=== PATIENT | male | born 1980 | race Caucasian/White ===

== ENCOUNTER → 2024-12-20 15:35 | Outpatient (BNVA) | payer BC, SELFPAY | PROVIDERS: Visit Provider Orthopaedic Surgery | DX: M54.50 Low back pain, unspecified (principal) | CPT/HCPCS: 72110 ==

== ENCOUNTER 2025-01-15 07:53 | Outpatient (CLI) | payer BC, MEDICAID, SELFPAY ==
--- NOTE | 2025-01-15 08:00 | MR_ITS ---
WS: [id number] MRI LUMBAR SPINE NONCONTRAST HISTORY: lumbar pain COMPARISON: None available. TECHNIQUE: Sagittal and axial multisequence imaging is submitted. S1 vertebral body is lumbarized. Multiple Schmorl's nodes within the mid to lower thoracic spine. Slight straightening of the normal lumbar lordosis. L2 retrolisthesis by 2 mm. Disc spaces are moderately narrowed. Schmorl's nodes at several levels. No acute fracture. Conus terminates normally at L1-2 disc level. L1-L2: Mild annular disc bulging with a proximal RIGHT foraminal disc osteophyte. Annular fissure associated with the disc. Ligamentum flavum and facet arthritis. Mild central, bilateral subarticular recess and RIGHT foraminal narrowing. Slightly greater contact on the traversing RIGHT L2 nerve root. L2-L3: Diffuse annular disc bulge with a tiny central disc protrusion, ligamentum flavum and facet arthritis. Small amount of fluid in the LEFT facet joint. Mild central, subarticular recess and foraminal stenosis. Mild disc encroachment upon the subarticular recesses. L3-L4: Mild annular disc bulging with ligamentum flavum and facet arthritis. Mild foraminal stenosis. L4-L5: Mild annular disc bulging with moderate ligamentum flavum and facet arthritis. Disc contacts the traversing L5 nerve roots. Disc osteophyte encroaching into the foramina. Mild central and subarticular recess stenosis. Moderate bilateral foraminal stenosis. L5-S1: Diffuse annular disc bulge with a small central disc protrusion contacting the S1 nerve roots. Moderate ligamentum flavum and facet arthritis. Disc osteophyte causing at least moderate foraminal stenosis. S1-S2: Small rudimentary disc. Mild foraminal stenosis. Paravertebral soft tissues negative. MR/MR lumbar spine wo con* [id number] IMPRESSION: 1. Multilevel facet joint arthropathy and stenoses. 2. L1-2: Proximal RIGHT foraminal disc osteophyte with contact on the traversi ng RIGHT L2 nerve root. Mild central, bilateral subarticular recess and RIGHT f oraminal stenosis. 3. L4-5 and L5-S1: Moderate bilateral foraminal stenosis due to disc osteophyt e and facet arthropathy. 4. L4-5: Disc contacts the traversing L5 nerve roots. Mild central and subarti cular recess and moderate foraminal stenosis. 5. L5-S1: Small central disc protrusion contacts the S1 nerve roots. 6. L2-3: Mild central subarticular recess and foraminal stenosis. 7. Numerous Schmorl's nodes within the thoracic and lumbar spine.
== END 2025-01-15 07:54 | disposition home or self-care (01) ==
PROVIDERS: PCP Family Medicine; Visit Provider Orthopaedic Surgery
DX: M47.896 Other spondylosis, lumbar region (principal); M79.604 Pain in right leg; M79.605 Pain in left leg; M48.061 Spinal stenosis, lumbar region without neurogenic claudication; M25.78 Osteophyte, vertebrae; M48.07 Spinal stenosis, lumbosacral region; R93.7 Abnormal findings on diagnostic imaging of other parts of musculoskeletal system; M51.27 Other intervertebral disc displacement, lumbosacral region; M51.44 Schmorl's nodes, thoracic region; M51.46 Schmorl's nodes, lumbar region; M43.16 Spondylolisthesis, lumbar region; M51.369 Other intervertebral disc degeneration, lumbar region without mention of lumbar back pain or lower extremity pain; M24.28 Disorder of ligament, vertebrae; M51.379 Other intervertebral disc degeneration, lumbosacral region without mention of lumbar back pain or lower extremity pain; M47.897 Other spondylosis, lumbosacral region; M48.08 Spinal stenosis, sacral and sacrococcygeal region
CPT/HCPCS: 72148

== ENCOUNTER 2025-03-19 05:01 | Inpatient (IN) | payer BC, SELFPAY ==
[2025-03-19] VITALS (8 sets, daily range): BP systolic 104–136; BP diastolic 64–83; PULSE 68–90; RESP 16–17; TEMP 36.4–36.9; O2SAT 96–99; BMI 25.7
--- NOTE | 2025-03-19 05:25 | PC.NURSE ---
upon arriving to room from lobby for evaluation patient changed into green scrubs and belongings locked up .
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
[2025-03-19 05:38] LABS: Hematocrit 42.1 % (37-53); Hemoglobin 13.70 g/dL (11.27-16.99); Mean Corpuscular HGB Conc 32.5 g/dL (30-55); Mean Corpuscular Hemoglobin 30.6 pg (27-33); Mean Corpuscular Volume 94.2 fl (82-101); Nucleated Red Blood Cells % 0 %; Platelet Count 286 10^3/cmm (157-399); Red Blood Count 4.47 10^6/uL (3.85-5.65); White Blood Count 10.89 10^3/uL (3.29-11.43)
[2025-03-19 05:54] LABS: Alanine Aminotransferase 21 U/L (0-41); Albumin Level 4.3 g/dL (3.5-5.2); Alkaline Phosphatase 88 U/L (40-130); Anion Gap 14.4 (5-19); Aspartate Amino Transferase 19 U/L (0-40); Blood Urea Nitrogen 10 mg/dL (6-20); Calcium 9.6 mg/dL (8.5-10.5); Carbon Dioxide 26 mmol/L (22-29); Chloride 100 mmol/L (98-107); Creatinine Clr Calc Pharmacy 166.4584; Globulin 3.3 g/dL (1.3-4.6); Glucose 98 mg/dL (65-115); Osmolality Calculated 283 mOsm/kg (285-295); Potassium 3.4 mmol/L (3.5-5.1); Sodium 137 mmol/L (136-145); Total Protein 7.6 g/dL (6.6-8.7)
[2025-03-19 05:58] LABS: Acetaminophen < 5.0 ug/mL (10-30); Alcohol Level < 10 mg/dL (0-10); Salicylate < 0.3 mg/dL (3-10)
[2025-03-19 06:16] LABS: Glucose Urine UA Negative (Normal); Nitrate Urine Negative (Negative); Specific Gravity, Urine 1.014 (1.005-1.030)
[2025-03-19 06:21] LABS: Add Urine Microscopic? YES
[2025-03-19 06:23] LABS: PCP Screen Urine Negative (Negative)
--- NOTE | 2025-03-19 06:29 | PC.NURSE ---
Pt removed his nicotine patch and threw it away.
[2025-03-19] MEDS: LORazepam 1 MG/0.5 ML injection 2 MG IM ×2 (07:13→19:18)
--- NOTE | 2025-03-19 07:14 | PC.NURSE ---
pt became agitated and wanted to leave to smoke a cigarette. pt left room and went down to the doors trying to leave, JUAN Bradley and JUAN Medrano attempted to talk to pt to go back to his room and pt refused. pt then got one pump of hand cashier general in his hand, licked it, and then spit on the floor. pt repeating that he just wants to go smoke a cigarette. Dr. Mizra and security notified, Dr. Mirza gave verbal orders to give 20mg Geodon and 2mg Ativan IM. medications administered. Security and PSA at bedside, pt pacing room at this time.
--- NOTE | 2025-03-19 12:04 | PC.ADMIT ---
[email or web address] Maral Lai Admission Note:Pt was brought in by his for having hyperactive behaviors and not sleeping for several days. He was recently admitted to [facility] for alcohol withdrawl. He has a hx of bipolar. His UDS was positive for opioids and he was negative for alcohol. V/s were stable in ER. Pt was given 20mg of Geodon and 2mg of ativan in ER for behaviors. He made it to the unit in a wheelchair. He was unable to speak clearly or stay awake to answer any questions. He was able to eat a sandwhich and drink some tea. He is now sleeping with no concerns. The patient,Kareem Dunaway,44 y/o, was given written information regarding hospital policies, unit procedures and contact persons. Patient's smoking status: never smoked. Vital Signs - 8 hr 03/19/25 05:21 03/19/25 07:55 03/19/25 08:00 Temperature 98.4 F Pulse Rate 90 75 76 Respiratory Rate 17 Blood Pressure 136/82 104/65 Pulse Oximetry 99 97 96 Oxygen Delivery Method Room Air 03/19/25 08:15 03/19/25 08:42 03/19/25 09:09 Temperature Pulse Rate 74 68 77 Respiratory Rate Blood Pressure 109/64 123/72 Pulse Oximetry 96 97 97 Oxygen Delivery Method 03/19/25 11:16 03/19/25 11:25 Temperature 97.5 F L Pulse Rate 75 Respiratory Rate 16 Blood Pressure 124/83 Pulse Oximetry 99 Oxygen Delivery Method Room Air Room Air
--- NOTE | 2025-03-19 13:05 | P.NPUPN_ITS ---
Vitals/I&O/Wt Last Vital Signs Temp 97.9 F 03/20/25 01:08 Pulse 86 03/20/25 01:08 Resp 20 H 03/20/25 01:08 BP 121/80 03/20/25 01:08 Pulse Ox 100 03/20/25 01:08 O2 Del Method Room Air 03/20/25 01:08 Weight last 48 hrs Weight 90.718 kg Data NPU 03/19/25 05:27 03/19/25 05:27 A&P PDMP PDMP Reviewed: Not Reviewed Involuntary Hold Information 2 Hold Status: Legal Status: 96 Hour Hold Date/Time Hold Expires: 03/25/2025 @ 0705 Coding Level of Care Code Acute Code for Chg Fwd
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
--- NOTE | 2025-03-19 13:50 | PC.NURSE ---
96 hr rights reviewed with pt @4151 with assistance of [facility] security site supervisor Elliot Melchor and Elliot Carreon. All education reviewed with pt at this time. Pt verbalized no questions regarding hold parameters. Pt copy was left @bedside with pt. Pt declined a beverage or snack. No further needs at this time.
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
[2025-03-19] MEDS: water for injection-sterile 10 ML (19:21)
--- NOTE | 2025-03-19 20:51 | PC.NURSE ---
pt was medicated on day shift did not get vitals pt resting well. charge nurse aware
[2025-03-20 01:08] VITALS: BP 121/80; PULSE 86; RESP 20; TEMP 36.6; O2SAT 100
[2025-03-20 03:21] VITALS: BP 139/89; PULSE 93; RESP 22; O2SAT 96
[2025-03-20 06:00] VITALS: BP 161/80; PULSE 99; RESP 18; O2SAT 95
[2025-03-20] MEDS: LORazepam 1 MG/0.5 ML injection 2 MG IM ×3 (09:14→23:14)
[2025-03-20] MEDS: diphenhydrAMINE 50 mg/mL SDV 1mL IM ×3 (09:14→23:14)
[2025-03-20] MEDS: water for injection-sterile 10 ML ×2 (09:16→14:12)
--- NOTE | 2025-03-20 09:18 | PC.NURSE ---
one time order for Ativan 2 mg/Geodon 20 mg/Benadryl 50 mg Ativan 2 mg given IM & Benadryl 50 mg given IM in left deltoid per patient c/o increased anxiety/agitation. Geodon 20 mg given IM in left deltoid per pt c/o increased anxiety/agitation. patient has rapid rambling speech, demanding a cigg because it's his restorationist hitting wall in room at times, coming out with sheet over his head, putting paper in his mouth attempting to chew it. easily redirected by staff but needs much redirection. agreeable to taking injections at this time, saying yeah they really helped me yesterday security to unit to be present in room during injections. staff will cont to monitor for desired med effectiveness.
--- NOTE | 2025-03-20 09:36 | PC.NURSE ---
took off nicotine patch & gave to staff to dispose of properly
[2025-03-20 14:00] VITALS: BP 119/88; PULSE 111; RESP 16; TEMP 36.4; O2SAT 100
--- NOTE | 2025-03-20 14:12 | PC.NURSE ---
prn Ativan/Benadryl/Geodon ativan 2 mg given IM along with Benadryl 50 mg IM & Geodon 20 mg IM per pt c/o increased anxiety/agitation/aggression. upset about being here on unit, saying I don't want more meds to just make me fucking sleep. patient disruptive on unit, cursing at staff & would not take redirection from staff. anesthesiology technologist, two security guards in room along with several other NPU staff, staff asked patient to take injections ordered by physician, patient got up from his bed getting verbally aggressive with staff, attempting to walk out of his room. security and NPU RN & this nurse did manual hold to assist patient to lay down on bed for injections. Code 10 called by NPU staff at this time. injections given in left buttock by NPU JING Roblero. manual hold by staff/security was less than 1 minute for injections only, then patient was released. patient immediately jumped up from bed & was threatening towards information systems security manager, saying did you fucking twist my arm? redirected by staff to not curse/threaten staff. patient pacing hallway while talking to information systems security manager. Dr. Mcghee to unit at this time after injections given, currently in hallway speaking with patient, staff will cont to monitor for desired med effectiveness.
--- NOTE | 2025-03-20 16:25 | P.NPUPN_ITS ---
Subjective NPU 2 Subjective: Patient presented today reporting that things are going okay. However staff report he had significant difficulty with managing his impulses during the day. They say he required multiple interventions with as needed medications including injections. He continues to be absent insight into the purpose of him being here and seems to be quite confused and essentially delirious per staff reports and direct observation. He is reporting that he is ready to go home and he denied any side effects of the medication. We discussed the risks, benefits and alternatives of increasing his medication and he understood and agreed to proceed as is documented in this note but seem to expect that he was going to be without the door each time he agreed to something simple. Mental Status Exam 2 MSE Comments: This is a well-nourished well-developed white male in hospital scrubs with adequate grooming and fair eye contact with limited tattoos on both arms. No abnormal movements except for significant psychomotor agitation. He was mostly cooperative with exam in mild to moderate distress. Speech was increased rate and normal in volume, feeling slightly pressured but with significant dysarthria. Mood described as pretty good. His affect was somewhat euphoric. Thought process was linear at times but other times quite disorganized. Thought content: Patient denied suicidal or homicidal ideation. There were no delusions reported but significant magical thinking and bizarre thinking, he did not report auditory or visual hallucinations but reported strange things that could just be imagined. The patient exhibits signs of restlessness and irritability. Attention and concentration were limited and his recent and remote memory appeared unreliable but then he would go off on a tangent using very disorganized language, but none were formally tested. He is alert and oriented to person, place. Insight and judgment are impaired. Impulse control is impaired. Vitals/I&O/Wt Last Vital Signs Temp 97.6 F 03/20/25 14:00 Pulse 111 H 03/20/25 14:00 Resp 16 03/20/25 14:00 BP 119/88 03/20/25 14:00 Pulse Ox 100 03/20/25 14:00 O2 Del Method Room Air 03/20/25 14:00 O2 Flow Rate 96 03/20/25 03:21 03/20/25 14:59 Intake Total Balance Data NPU 03/19/25 05:27 03/19/25 05:27 A&P Assessment and plan (1) Bipolar disorder: (2) Manic behavior: (3) Alcohol use disorder: (4) Hx of Wernicke's encephalopathy: (5) Psychosis: (6) Cannabis use disorder: Plan This is a 44-year-old white male with a reported long history of bipolar disorder but recent history of concern for Warnicke syndrome with recent hospitalization in [facility] which ended with him being put on fluphenazine with little to no impact. Reports of allergies to Haldol and Risperdal and not doing well with lithium either. Discussed Abilify with family versus Invega but given Risperdal allergy or at least problems with Risperdal we will avoid Invega at this time. Complicating the matter is this vague alcohol use and reports of Warnicke's as well as issues related to his cannabis use and the possibility of cannabis being at the heart of his psychosis. 1. Continue current medication which is Abilify 10 mg p.o. daily. Increase Abilify to 20 mg p.o. daily and start thiamine and folate. 2. Encourage individual, group and milieu therapy. 3. Continue every 15 minute checks for safety. 4. Encourage sober living treatment after discharge at the highest level of care to which she is willing to commit. 5. Evaluate against a backdrop of a 96-hour hold. Will likely need a 21-day hold. 6. Will try to get hospital records to see where this concept of Warnicke's comes from given a very vague history of alcohol use. PDMP PDMP Reviewed: Not Reviewed Involuntary Hold Information 2 Hold Status: Legal Status: 96 Hour Hold Date/Time Hold Expires: 03/25/2025 @ 0705 Attestations NPU 2 Medical Necessity Statement*: Inpatient hospitalization is medically necessary and the clinically appropriate intervention at this time. We will monitor medications and make changes as indicated. The patient's likely length of stay is 7-10 days. Coding Level of Care Code Acute Code for [facility] Fw Diagnoses Bipolar disorder F31.9 Manic behavior F30.10 Alcohol use disorder F10.90 Hx of Wernicke's encephalopathy Z86.39 Psychosis F29 Cannabis use disorder F12.90
--- NOTE | 2025-03-20 22:39 | PC.NURSE ---
pt vs not completed per charge nurse, resp 21
[2025-03-21] MEDS: water for injection-sterile 10 ML ×3 (02:13→18:00)
[2025-03-21 06:00] VITALS: BP 125/74; PULSE 101; RESP 20; TEMP 36.3; O2SAT 99
[2025-03-21] MEDS: LORazepam 1 MG/0.5 ML injection 2 MG IM ×2 (07:50→18:00)
[2025-03-21] MEDS: diphenhydrAMINE 50 mg/mL SDV 1mL IM ×2 (07:51→18:00)
--- NOTE | 2025-03-21 09:31 | PC.NURSE ---
Pt was up at nurses station and going from room 170 to room 151. He was moving around mattresses off the beds. Had multiple layers of clothes on and pillows shoved up his shirt. He cont to reach into the nurses station grabbing things and putting things inside. He then began to walk up and down the soto slamming doors and hitting the saul. He was writing on the saul as well. I spoke with Dr. Mcghee and he stated that we need to give him an injection and place him into seclusion. I made the call to security and warehouse associate driver and they assisted to give him medications and place him in seclusion. Pt went willingly with minimal resistance but was very arguementative.
--- NOTE | 2025-03-21 09:53 | PC.NURSE ---
Dr. Mcghee gave a v/o to order pt Klonopin 1mg po BId and give one now. Dr also ordered for us to give Geodon 20mg IM now.
--- NOTE | 2025-03-21 10:44 | PC.NURSE ---
Security, warehouse delivery manager, a RADIOLOGY AIDE and myself entered the room and gave the medications ordered by Dr. Mcghee without incident. He took them willingly and did not resist to cont to stay in seclusion.
--- NOTE | 2025-03-21 11:46 | P.NPUPN_ITS ---
Subjective NPU 2 Subjective: Patient presented today reporting that he doing fine and wants to leave. He continued to be quite dysarthric and mumbling per staff reports and direct observation. He wandered aimlessly through the hallways they reported needing constant redirection to not going to peoples rooms and did not do odd things with anything he can get his hands on. He had a patient safe pen and poked it through his ear. Additionally he needed multiple as needed medications and seclusion and interventions constantly. We discussed redrawing labs to find if there is any item that sticks out to identify why he might be delirious. As he seems to be more in a delirious state than necessarily psychotic state. He denied any side effects to his medication. We discussed the risks, benefits and alternatives of increasing his Abilify to 20 mg and he appeared to understand agreed to proceed as is documented in this note. Mental Status Exam 2 MSE Comments: This is a well-nourished well-developed white male in hospital scrubs with adequate grooming and fair eye contact with limited tattoos on both arms. No abnormal movements except for significant psychomotor agitation. He was mostly cooperative with exam in mild to moderate distress. Speech was increased rate and normal in volume, feeling slightly pressured but with significant dysarthria. Mood described as pretty good. His affect was somewhat euphoric. Thought process was linear at times but other times quite disorganized. Thought content: Patient denied suicidal or homicidal ideation. There were no delusions reported but significant magical thinking and bizarre thinking, he did not report auditory or visual hallucinations but reported strange things that could just be imagined. The patient exhibits signs of restlessness and irritability. Attention and concentration were limited and his recent and remote memory appeared unreliable but then he would go off on a tangent using very disorganized language, but none were formally tested. He is alert and oriented to person, place. Insight and judgment are impaired. Impulse control is impaired. Vitals/I&O/Wt Last Vital Signs Temp 97.4 F L 03/21/25 06:00 Pulse 101 H 03/21/25 06:00 Resp 20 H 03/21/25 06:00 BP 125/74 03/21/25 06:00 Pulse Ox 99 03/21/25 06:00 O2 Del Method Room Air 03/21/25 06:00 O2 Flow Rate 96 03/20/25 03:21 03/20/25 03/21/25 03/21/25 22:59 06:59 14:59 Intake Total Balance Data NPU 03/19/25 05:27 03/19/25 05:27 A&P Assessment and plan (1) Bipolar disorder: (2) Manic behavior: (3) Alcohol use disorder: (4) Hx of Wernicke's encephalopathy: (5) Psychosis: (6) Cannabis use disorder: Plan This is a 44-year-old white male with a reported long history of bipolar disorder but recent history of concern for Warnicke syndrome with recent hospitalization in [facility] which ended with him being put on fluphenazine with little to no impact. Reports of allergies to Haldol and Risperdal and not doing well with lithium either. Discussed Abilify with family versus Invega but given Risperdal allergy or at least problems with Risperdal we will avoid Invega at this time. Complicating the matter is this vague alcohol use and reports of Warnicke's as well as issues related to his cannabis use and the possibility of cannabis being at the heart of his psychosis. 1. Continue current medication which is Abilify 10 mg p.o. daily. Increased Abilify to 20 mg p.o. daily and start thiamine and folate. 2. Encourage individual, group and milieu therapy. 3. Continue every 15 minute checks for safety. 4. Encourage sober living treatment after discharge at the highest level of care to which she is willing to commit. 5. Evaluate against a backdrop of a 96-hour hold. Will likely need a 21-day hold. 6. Will try to get hospital records to see where this concept of Warnicke's comes from given a very vague history of alcohol use. PDMP PDMP Reviewed: Not Reviewed Involuntary Hold Information 2 Hold Status: Legal Status: 96 Hour Hold Date/Time Hold Expires: 03/25/2025 @ 0705 Attestations NPU 2 Medical Necessity Statement*: Inpatient hospitalization is medically necessary and the clinically appropriate intervention at this time. We will monitor medications and make changes as indicated. The patient's likely length of stay is 7-10 days. Coding Level of Care Code Acute Code for [facility] Fwd Diagnoses Bipolar disorder F31.9 Manic behavior F30.10 Alcohol use disorder F10.90 Hx of Wernicke's encephalopathy Z86.39 Psychosis F29 Cannabis use disorder F12.90
[2025-03-21 13:30] LABS: Ammonia 16 umol/L (16-60)
[2025-03-21] MEDS: NIFEdipine ER (24 hr) 30 mg Tablet 60 MG PO (13:33)
[2025-03-21 13:41] LABS: Free T4 Free Thyroxine 1.23 ng/dL (0.82-1.77); Thyroid Stimulating Hormone 1.35 uIU/mL (0.27-4.20)
[2025-03-21 14:00] VITALS: BP 112/67; PULSE 89; RESP 18; TEMP 36.7; O2SAT 96
[2025-03-21] MEDS: HYDROcodone-acetaminophen 5-325 mg Tablet 1 TAB PO ×2 (17:20→22:04)
--- NOTE | 2025-03-21 18:08 | PC.NURSE ---
Pt has been manic all day running around. He had been in seclusion once already today and had medications. He slept for a short time around two this afternoon and as soon as he woke up he came running down the hallway. Since this time he has been talking non stop with flight of ideas and his words are mumbled and unclear most of the time. He has cont to throw things into the nurses station, go in and out of other patient rooms, and take things that do not belong to him. Pt began to escalate wanting to d/c from facility. He became more and more agitated. He began kicking the door at the nurses station exit. A code 10 was called, pt was taken to seclusion, and given injections (see MAR). Pt was verbally aggressive for the entire process, but never became physical. Dr. Mcghee and Melissa Loan Documentation Specialist have been notified.
[2025-03-21 22:00] VITALS: BP 115/72; PULSE 100; RESP 21; TEMP 36.3; O2SAT 95
[2025-03-22] MEDS: water for injection-sterile 10 ML ×3 (05:06→08:27)
[2025-03-22] MEDS: LORazepam 1 MG/0.5 ML injection 2 MG IM ×3 (05:07→18:39)
[2025-03-22] MEDS: diphenhydrAMINE 50 mg/mL SDV 1mL IM ×2 (05:08→08:26)
[2025-03-22] MEDS: NIFEdipine ER (24 hr) 30 mg Tablet 60 MG PO (07:30)
--- NOTE | 2025-03-22 07:45 | P.NPUPN_ITS ---
Subjective NPU 2 Subjective: Patient presented today reporting that he is fine. He continued to struggle with communication mumbling and being dysarthric per staff reports and direct observation. He continued to be mercurial and aimlessly wandering without clear purpose per staff reports and direct observation. He required continued rounds of as needed medication to manage his behavior. Behaviors like wandering into peoples rooms not appreciating personal space and just overall being odd and confused and confusing. He continued to take the medication as prescribed and denied any side effects of the medication. Mental Status Exam 2 MSE Comments: This is a well-nourished well-developed white male in hospital scrubs with adequate grooming and fair eye contact with limited tattoos on both arms. No abnormal movements except for significant psychomotor agitation. He was mostly cooperative with exam in mild to moderate distress. Speech was increased rate and normal in volume, feeling slightly pressured but with significant dysarthria. Mood described as pretty good. His affect was somewhat euphoric. Thought process was linear at times but other times quite disorganized. Thought content: Patient denied suicidal or homicidal ideation. There were no delusions reported but significant magical thinking and bizarre thinking, he did not report auditory or visual hallucinations but reported strange things that could just be imagined. The patient exhibits signs of restlessness and irritability. Attention and concentration were limited and his recent and remote memory appeared unreliable but then he would go off on a tangent using very disorganized language, but none were formally tested. He is alert and oriented to person, place. Insight and judgment are impaired. Impulse control is impaired. Vitals/I&O/Wt Last Vital Signs Temp 97.4 F L 03/21/25 22:00 Pulse 100 03/21/25 22:00 Resp 21 H 03/21/25 22:00 BP 115/72 03/21/25 22:00 Pulse Ox 95 03/21/25 22:00 O2 Del Method Room Air 03/21/25 22:00 O2 Flow Rate 96 03/20/25 03:21 03/21/25 03/22/25 03/22/25 22:59 06:59 14:59 Intake Total 5.775 / 5.775 Balance 5.775 / 5.775 Data NPU 03/19/25 05:27 03/19/25 05:27 A&P Assessment and plan (1) Bipolar disorder: (2) Manic behavior: (3) Alcohol use disorder: (4) Hx of Wernicke's encephalopathy: (5) Psychosis: (6) Cannabis use disorder: Plan This is a 44-year-old white male with a reported long history of bipolar disorder but recent history of concern for Warnicke syndrome with recent hospitalization in [facility] which ended with him being put on fluphenazine with little to no impact. Reports of allergies to Haldol and Risperdal and not doing well with lithium either. Discussed Abilify with family versus Invega but given Risperdal allergy or at least problems with Risperdal we will avoid Invega at this time. Complicating the matter is this vague alcohol use and reports of Warnicke's as well as issues related to his cannabis use and the possibility of cannabis being at the heart of his psychosis. 1. Continue current medication which is Abilify 10 mg p.o. daily. Increased Abilify to 20 mg p.o. daily and started thiamine and folate. 2. Encourage individual, group and milieu therapy. 3. Continue every 15 minute checks for safety. 4. Encourage sober living treatment after discharge at the highest level of care to which she is willing to commit. 5. Evaluate against a backdrop of a 96-hour hold. Will likely need a 21-day hold. 6. Will try to get hospital records to see where this concept of Warnicke's comes from given a very vague history of alcohol use. PDMP PDMP Reviewed: Not Reviewed Involuntary Hold Information 2 Hold Status: Legal Status: 96 Hour Hold Date/Time Hold Expires: 03/25/2025 @ 0705 Attestations NPU 2 Medical Necessity Statement*: Inpatient hospitalization is medically necessary and the clinically appropriate intervention at this time. We will monitor medications and make changes as indicated. The patient's likely length of stay is 7-10 days. Coding Level of Care Code Acute Code for [facility] Fwd Diagnoses Bipolar disorder F31.9 Manic behavior F30.10 Alcohol use disorder F10.90 Hx of Wernicke's encephalopathy Z86.39 Psychosis F29 Cannabis use disorder F12.90
[2025-03-22] MEDS: NADOLOL 40 MG 40 EACH PO (12:19)
[2025-03-22] MEDS: FLUPHENAZINE HCL 5 MG 5 EACH PO ×2 (12:20→13:58)
[2025-03-22 14:00] VITALS: BP 112/71; PULSE 112; RESP 18; TEMP 36.4; O2SAT 98
--- NOTE | 2025-03-22 18:11 | PC.NURSE ---
Pt. got worked up and starting kicking the NPU door so hard the frame work moved when it was kicked. Code 10 called pt. was placed in seclusion.
[2025-03-22] MEDS: water for injection-sterile 10 ML 2 ML (18:38)
--- NOTE | 2025-03-22 18:40 | PC.NURSE ---
Pt. kept cursing, yelling, hitting and kicking the saul and doors in the seclusion room, and has urinated on the door x's 2. Medication was given IM. Currently pt. is still kicking and hitting the doors.
[2025-03-22 19:05] VITALS: BP 113/70; PULSE 105; RESP 17; O2SAT 100
[2025-03-22 20:36] VITALS: BP 120/77; PULSE 110; RESP 18; O2SAT 99
[2025-03-23 06:00] VITALS: BP 134/72; PULSE 110; RESP 18; O2SAT 96
--- NOTE | 2025-03-23 07:55 | W.PM.NPUPNS ---
Subjective NPU Subjective: Patient presents today reporting that he is doing okay but is clearly struggling per staff reports. He continues to have a great need for as needed medication. He continues to have multiple seclusions or restraints daily. He continues to have very impaired speaking ability and seeming to be aimless and confused much of the time. We discussed getting a neurologist consult when neurology returns on Tuesday. Talk to his and she continued to agree that his behaviors are like this at home making it impossible for her to manage him. He denied any side effects to the medication. Mental Status Exam MSE Comments: This is a well-nourished well-developed white male in hospital scrubs with adequate grooming and fair eye contact with limited tattoos on both arms. No abnormal movements except for significant psychomotor agitation. He was mostly cooperative with exam in mild to moderate distress. Speech was increased rate and normal in volume, feeling slightly pressured but with significant dysarthria. Mood described as pretty good. His affect was somewhat euphoric. Thought process was linear at times but other times quite disorganized. Thought content: Patient denied suicidal or homicidal ideation. There were no delusions reported but significant magical thinking and bizarre thinking, he did not report auditory or visual hallucinations but reported strange things that could just be imagined. The patient exhibits signs of restlessness and irritability. Attention and concentration were limited and his recent and remote memory appeared unreliable but then he would go off on a tangent using very disorganized language, but none were formally tested. He is alert and oriented to person, place. Insight and judgment are impaired. Impulse control is impaired. Vitals/I&O/Wt Last Vital Signs Temp 97.5 F L 03/22/25 14:00 Pulse 110 H 03/23/25 06:00 Resp 18 03/23/25 06:00 BP 134/72 03/23/25 06:00 Pulse Ox 96 03/23/25 06:00 O2 Del Method Room Air 03/23/25 06:00 O2 Flow Rate 96 03/20/25 03:21 03/22/25 03/23/25 03/23/25 22:59 06:59 14:59 Intake Total 30 / Balance 30 30 Data NPU 04/02/25 15:04 03/24/25 17:50 A&P Assessment and plan 1. Bipolar disorder: 2. Manic behavior: 3. Alcohol use disorder: 4. Hx of Wernicke's encephalopathy: 5. Psychosis: 6. Cannabis use disorder: Plan: This is a 44-year-old white male with a reported long history of bipolar disorder but recent history of concern for Warnicke syndrome with recent hospitalization in [facility] which ended with him being put on fluphenazine with little to no impact. Reports of allergies to Haldol and Risperdal and not doing well with lithium either. Discussed Abilify with family versus Invega but given Risperdal allergy or at least problems with Risperdal we will avoid Invega at this time. Complicating the matter is this vague alcohol use and reports of Warnicke's as well as issues related to his cannabis use and the possibility of cannabis being at the heart of his psychosis. 1. Continue current medication which is Abilify 10 mg p.o. daily. Increased Abilify to 20 mg p.o. daily and started thiamine and folate. We started Klonopin 1 mg twice daily and were going to titrate it to effect to try to make sure he is getting some sleep and hopefully slowing down however nurse reports that he is cheeking the medication with a clear understanding of the impact of the Klonopin and he is not wanting to sleep which is something he is critically in need of. 2. Encourage individual, group and milieu therapy. 3. Continue every 15 minute checks for safety. 4. Encourage sober living treatment after discharge at the highest level of care to which she is willing to commit. 5. Evaluate against a backdrop of a 96-hour hold. Will likely need a 21-day hold. 6. Will try to get hospital records to see where this concept of Warnicke's comes from given a very vague history of alcohol use. PDMP PDMP Reviewed: Not Reviewed Involuntary Hold Information Hold Status: Legal Status: 96 Hour Hold Date/Time Hold Expires: 03/25/2025 @ 0705 Attestations NPU Medical Necessity Statement*: Inpatient hospitalization is medically necessary and the clinically appropriate intervention at this time. We will monitor medications and make changes as indicated. The patient's likely length of stay is 7-10 days. Coding Level of Care Code Acute Code for [facility] Diagnoses Bipolar disorder F31.9 Manic behavior F30.10 Alcohol use disorder F10.90 Hx of Wernicke's encephalopathy Z86.39 Psychosis F29 Cannabis use disorder F12.90
[2025-03-23] MEDS: NIFEdipine ER (24 hr) 30 mg Tablet 60 MG PO (08:23)
[2025-03-23] MEDS: FLUPHENAZINE HCL 5 MG 5 EACH PO ×3 (08:26→20:18)
[2025-03-23] MEDS: NADOLOL 40 MG 40 EACH PO (08:26)
--- NOTE | 2025-03-23 09:11 | PC.NURSE ---
Pt. put a hole in the ceiling of the hallway bathroom, and placed a sheet up in the hole draping down to a shower chair that was in the bathroom. Pt.'s linens was removed, and the chair was removed from the BR.
[2025-03-23] MEDS: LORazepam 1 MG/0.5 ML injection 2 MG IM ×2 (09:35→20:04)
[2025-03-23] MEDS: diphenhydrAMINE 50 mg/mL SDV 1mL IM (09:36)
[2025-03-23] MEDS: HYDROcodone-acetaminophen 5-325 mg Tablet 1 TAB PO ×2 (13:01→17:50)
[2025-03-23 14:00] VITALS: BP 90/51; PULSE 85; RESP 18; TEMP 36.6; O2SAT 98
--- NOTE | 2025-03-23 17:05 | PC.NURSE ---
pt. had hid a Klonopin in his pocket that was found early this am. Signee was giving pt. his 1800 dose of Klonopin and then asked to see his mouth and pt. had the Klonopin under his tongue and signee informed pt. to swallow it, pt. stated he did not want it right now he wanted to save it for later. Pt. spit out the pill and signee wasted the pill.
[2025-03-23 20:46] VITALS: BP 118/80; PULSE 87; RESP 18; O2SAT 96
[2025-03-24 04:21] LABS: Add Urine Microscopic? YES; Glucose Urine UA Negative (Normal); Nitrate Urine Negative (Negative); Specific Gravity, Urine 1.010 (1.005-1.030)
--- NOTE | 2025-03-24 04:41 | PC.NURSE ---
Patient with c/o dry throat. Pharynx is pink with post nasal drainage observed. Hands and feet bilateral with mild swelling observed. Physician notified with orders received. Patient urinated on floor this am. Patient has been ambulating in the hallway with another peer this morning. He is cooperative and somewhat redirectable. He denies pain or needsat present.
[2025-03-24 06:00] VITALS: BP 109/76; PULSE 90; RESP 18; TEMP 36.4; O2SAT 98; BMI 24.5
[2025-03-24] MEDS: HYDROcodone-acetaminophen 5-325 mg Tablet 1 TAB PO ×3 (06:30→20:18)
[2025-03-24] MEDS: NADOLOL 40 MG 40 EACH PO (08:44)
[2025-03-24] MEDS: FLUPHENAZINE HCL 5 MG 5 EACH PO ×3 (08:44→20:17)
[2025-03-24] MEDS: NIFEdipine ER (24 hr) 30 mg Tablet 60 MG PO (08:46)
[2025-03-24 09:41] LABS: Hematocrit 42.5 % (37-53); Hemoglobin 14.10 g/dL (11.27-16.99); Mean Corpuscular HGB Conc 33.2 g/dL (30-55); Mean Corpuscular Hemoglobin 30.6 pg (27-33); Mean Corpuscular Volume 92.2 fl (82-101); Nucleated Red Blood Cells % 0 %; Platelet Count 281 10^3/cmm (157-399); Red Blood Count 4.61 10^6/uL (3.85-5.65); White Blood Count 9.21 10^3/uL (3.29-11.43)
[2025-03-24 10:00] LABS: Alanine Aminotransferase 19 U/L (0-41); Albumin Level 4.6 g/dL (3.5-5.2); Alkaline Phosphatase 91 U/L (40-130); Anion Gap 19.1 (5-19); Aspartate Amino Transferase 51 U/L (0-40); Blood Urea Nitrogen 11 mg/dL (6-20); Calcium 10.3 mg/dL (8.5-10.5); Carbon Dioxide 24 mmol/L (22-29); Chloride 97 mmol/L (98-107); Creatinine Clr Calc Pharmacy 143.0276; Globulin 3.5 g/dL (1.3-4.6); Glucose 102 mg/dL (65-115); Osmolality Calculated 282 mOsm/kg (285-295); Potassium 4.1 mmol/L (3.5-5.1); Sodium 136 mmol/L (136-145); Total Protein 8.1 g/dL (6.6-8.7)
--- NOTE | 2025-03-24 10:43 | PC.NURSE ---
Pt has 1+ pitting edema on his bilateral lower extremities. There is also some redness. I spoke with pt and she states that pt had a KS last year. Staff is trying to get pt to lay with feet elevated. A med consult was put in and Dr. Mcghee has been notified. The next Dr up per ER was Dr. Ward.
[2025-03-24 14:00] VITALS: BP 123/69; PULSE 84; RESP 17; O2SAT 100
--- NOTE | 2025-03-24 17:06 | P.NPUPN_ITS ---
Subjective NPU 2 Subjective: 44-year-old male with bipolar disorder a dmitted with odd behavior. He continued to have rapid speech and continued to ramble on the unit. He had not required any seclusions or restraints today. He had not been as aggressive but continue to require redirection. The patient had asked the physician underwriter of this note whether he could go home and have a romantic dinner with his stating that she deserved a good meal at [employer]. Patient had denied any drug use. He had been seen on the unit and engaged in bizarre actions such as doing push-ups repeatedly and stating that he was working on getting into shape by doing push- ups. He had complained of having swollen feet and reported a history of having been on more than 13 medications. Mental Status Exam 2 MSE Comments: This is a well-nourished well-developed white male in hospital scrubs with adequate grooming and fair eye contact with limited tattoos on both arms. No abnormal movements except for significant psychomotor agitation. He was mostly cooperative with exam in mild to moderate distress. Speech was increased in rate and normal in volume, feeling slightly pressured but with significant dysarthria. Mood described as pretty good. His affect was expansive and excessively euphoric. Thought process was disorganized. Thought content: Patient denied suicidal or homicidal ideation. There were no delusions reported but significant magical thinking and bizarre thinking, he did not report auditory or visual hallucinations but reported strange things that could just be imagined. The patient exhibits signs of restlessness and irritability. Attention and concentration were limited and his recent and remote memory appeared impaired. He is alert and oriented to person, place. Insight and judgment are impaired. Impulse control is impaired. Vitals/I&O/Wt Last Vital Signs Temp 97.5 F L 03/24/25 06:00 Pulse 84 03/24/25 14:00 Resp 17 03/24/25 14:00 BP 123/69 03/24/25 14:00 Pulse Ox 100 03/24/25 14:00 O2 Del Method Room Air 03/24/25 06:00 O2 Flow Rate 96 03/20/25 03:21 Weight last 48 hrs Weight 86.863 kg Data NPU 03/24/25 08:57 03/24/25 08:57 A&P Assessment and plan (1) Bipolar disorder: (2) Manic behavior: (3) Alcohol use disorder: (4) Hx of Wernicke's encephalopathy: (5) Psychosis: (6) Cannabis use disorder: Plan This is a 44-year-old white male with a reported long history of bipolar disorder but recent history of concern for Warnicke syndrome with recent hospitalization in [facility] which ended with him being put on fluphenazine with little to no impact. Reports of allergies to Haldol and Risperdal and not doing well with lithium either. Discussed Abilify with family versus Invega but given Risperdal allergy or at least problems with Risperdal we will avoid Invega at this time. Complicating the matter is this vague alcohol use and reports of Warnicke's as well as issues related to his cannabis use and the possibility of cannabis being at the heart of his psychosis. 1. Continue abilify 30mg daily and continue thiamine and folate. We started Klonopin 1 mg twice daily and were going to titrate it to effect to try to make sure he is getting some sleep and hopefully slowing down however nurse reports that he is cheeking the medication with a clear understanding of the impact of the Klonopin and he is not wanting to sleep which is something he is critically in need of. 2. Encourage individual, group and milieu therapy. 3. Continue every 15 minute checks for safety. 4. Encourage sober living treatment after discharge at the highest level of care to which she is willing to commit. 5. Evaluate against a backdrop of a 96-hour hold. Will likely need a 21-day hold. 6. Will try to get hospital records to see where this concept of Warnicke's comes from given a very vague history of alcohol use. Medical consult for pitting edema noted. labs ordered BNP, CRP, CMP, Cbc with Diff, Troponin series/EKG, ammonia level. PDMP PDMP Reviewed: Not Reviewed Involuntary Hold Information 2 Hold Status: Legal Status: 96 Hour Hold Date/Time Hold Expires: 03/25/2025 @ 0705 Attestations NPU 2 Medical Necessity Statement*: Inpatient hospitalization is medically necessary and the clinically appropriate intervention at this time. We will monitor medications and make changes as indicated. The patient's likely length of stay is 7-10 days. Coding Level of Care Code Acute Code for [facility] Fwd Diagnoses Bipolar disorder F31.9 Manic behavior F30.10 Alcohol use disorder F10.90 Hx of Wernicke's encephalopathy Z86.39 Psychosis F29 Cannabis use disorder F12.90
--- NOTE | 2025-03-24 17:57 | PM.CONSULT ---
Providers/Reason For Consult Consulting Physician/Specialty*: Psychiatry Reason for Consult*: Swelling Attending Physician: Arthur Mcghee MD History of Present Illness History of Present Illness Kareem Dunaway is a 44 year old male with a past medical history of hypertension, hepatitis C status posttreatment, history of alcoholism, marijuana use, admitted to neuropsychiatric unit, hospitalist team was called due to lower extremity edema. Patient denies any chest pain, palpitation, shortness of breath, no cardiovascular history, no abdominal distention, no abdominal pain, no nausea, no vomiting, he tells me he is very active, no shortness of breath with exertion orthopnea, no paroxysmal nocturnal dyspnea, no history of liver cirrhosis, no calf pain, no calf swelling, no hemoptysis, no recent surgeries, denies a family history of CAD, mother from cancer, father currently has pancreatic cancer, denies smoking, does report marijuana use, denies any IV drug use, he has had a surgery on his neck Medications/Allergies Home Medications ?Medication ?Instructions ?Recorded ?Confirmed ?Last Taken ?Type hydrocodone 5 mg-acetaminophen 325 1 tab PO Q6H PRN Pain 12/20/24 03/19/25 Unknown History mg tablet nadolol 40 mg tablet 40 mg PO DAILY 12/20/24 03/19/25 Unknown History amlodipine 5 mg tablet 10 mg PO DAILY 03/19/25 03/19/25 Unknown History benztropine 1 mg tablet 1 mg PO BID 03/19/25 03/19/25 Unknown History fluphenazine HCl 5 mg tablet 5 mg PO TID 03/19/25 03/19/25 Unknown History Allergies Allergy/AdvReac Type Severity Reaction Status Date / Time haloperidol (From Haldol) Allergy ADR-Seizure Verified 03/19/25 13:46 risperidone (From Risperdal) Allergy ALGY-Anaphy Verified 03/21/25 12:34 laxis Current Medications Generic Name Dose Route Start Last Admin Trade Name Freq PRN Reason Stop Dose Admin Acetaminophen 650 mg 03/19/25 11:14 03/23/25 21:27 Acetaminophen 325 Mg Tablet PO 650 mg Q4H PRN Administration MILD PAIN Hydrocodone Bitart/Acetaminophen 1 tab 03/21/25 13:14 03/24/25 11:38 Hydrocodone-Acetaminophen 5-325 Mg Tablet PO 1 tab Q4H PRN Administration MODERATE PAIN Benztropine Mesylate 1 mg 03/19/25 18:00 03/24/25 17:02 Benztropine 1 Mg Tablet PO 1 mg BID CORRIE Administration Clonazepam 1 mg 03/21/25 10:00 03/24/25 17:02 Clonazepam 1 Mg Tablet PO 1 mg BID CORRIE Administration Clonazepam 1 mg 03/21/25 22:48 03/21/25 23:08 Clonazepam 1 Mg Tablet PO 1 mg ONCE PRN Administration ANXIETY Diphenhydramine HCl 50 mg 03/19/25 11:14 03/23/25 09:36 Diphenhydramine 50 Mg/Ml Sdv 1ml IM 50 mg ONCE PRN Administration Severe Extrapyramidal Symptoms Diphenhydramine HCl 50 mg 03/19/25 11:14 03/22/25 05:08 Diphenhydramine 50 Mg/Ml Sdv 1ml IM 50 mg Q4H PRN Administration Severe Aggression Folic Acid 1 mg 03/21/25 13:00 03/24/25 08:46 Folic Acid 1 Mg Tablet PO 1 mg DAILY CORRIE Administration Hydroxyzine Pamoate 50 mg 03/19/25 11:14 03/23/25 14:12 Hydroxyzine 25 Mg Capsule PO 50 mg Q6H PRN Administration ANXIETY Ibuprofen 600 mg 03/19/25 11:14 03/22/25 19:32 Ibuprofen 600 Mg Tablet PO 600 mg Q6H PRN Administration MODERATE PAIN Lorazepam 2 mg 03/23/25 19:56 03/23/25 20:04 Lorazepam 1 Mg/0.5 Ml Injection IM 2 mg Q4H PRN Administration ANXIETY Nicotine 1 patch 03/19/25 11:14 03/24/25 08:08 Nicotine 21 Mg Patch TRANSDERMA 1 patch DAILY PRN Administration NICOTINE WITHDRAWAL Nicotine Polacrilex 2 mg 03/19/25 11:14 03/24/25 17:22 Nicotine 2 Mg Gum BUCCAL 2 mg Q2H PRN Administration NICOTINE WITHDRAWAL Nicotine Polacrilex 4 mg 03/19/25 11:23 03/23/25 18:07 Nicotine 4 Mg Lozenge MUCOUS MEM 4 mg Q2H PRN Administration NICOTINE CRAVINGS Non-Formulary Medication 40 mg 03/19/25 11:15 03/24/25 08:44 Nadolol PO 40 mg DAILY CORRIE Administration Non-Formulary Medication 5 mg 03/22/25 10:00 03/24/25 15:10 Fluphenazine Hcl PO 5 mg TID CORRIE Administration Olanzapine 5 mg 03/19/25 11:14 03/23/25 18:50 Olanzapine 5 Mg Odt PO 5 mg Q4H PRN Administration Agitation/Psychosis Olanzapine 10 mg 03/20/25 22:44 03/22/25 18:40 Olanzapine 10 Mg Vial IM 10 mg Q4H PRN Administration SEVERE AGITATION Pantoprazole Sodium 40 mg 03/21/25 13:11 03/24/25 08:[address] 40 Mg Tablet PO 40 mg DAILY CORRIE Administration Thiamine Mononitrate 250 mg 03/21/25 12:58 03/24/25 08:45 Thiamine 100 Mg Tablet PO 250 mg DAILY CORRIE Administration Trazodone HCl 50 mg 03/21/25 22:05 03/23/25 01:16 Trazodone 50 Mg Tablet PO 50 mg BEDTIME PRN Administration INSOMNIA PFSH Acute PFSH: Social History Smoking and tobacco/nicotine status: never used tobacco/nicotine Vitals/I&O/Wt Last Vital Signs Temp 97.5 F L 03/24/25 06:00 Pulse 84 03/24/25 14:00 Resp 17 03/24/25 14:00 BP 123/69 03/24/25 14:00 Pulse Ox 100 03/24/25 14:00 O2 Del Method Room Air 03/24/25 06:00 O2 Flow Rate 96 03/20/25 03:21 Weight last 48 hrs Weight 86.863 kg Physical Exam Const: COMMON NORMALS: no acute distress and patient oriented x3 Resp: COMMON NORMALS: normal respiratory effort, No retractions, No use of accessory muscles and clear to auscultation bilaterally AUSCULTATION: clear to auscultation bilaterally Cardio: COMMON NORMALS: regular rate, regular rhythm, S1 normal heart sound present and S2 normal heart sound present RATE: regular rate RHYTHM: regular rhythm HEART SOUNDS: S1 normal heart sound present and S2 normal heart sound present GI: COMMON NORMALS: Normal to inspection, nondistended, normoactive bowel sounds present and non-tender Extremity: COMMON NORMALS: no calf tenderness NARRATIVE EXTREMITY EXAM: Nonpitting edema bilateral extremities Neuro: COMMON NORMALS: patient oriented x3, CN's II-XII intact bilaterally and moves all extremities Psych: COMMON NORMALS: mental status grossly normal Data 03/24/25 08:57 03/24/25 08:57 A&P Assessment and plan (1) Bilateral lower extremity edema: Plan - Likely side effect of being on both Norvasc and nifedipine - Will hold both medications - Start chlorthalidone tomorrow - Blood work ordered including BMP - Monitor blood pressure closely, monitor creatinine PDMP PDMP Reviewed: Not Reviewed Consult Attestations Medical Necessity Statement: Patient requires hospitalization, for bilateral edema Diagnoses Bilateral lower extremity edema R60.0
[2025-03-24 18:00] LABS: Hematocrit 41.2 % (37-53); Hemoglobin 13.60 g/dL (11.27-16.99); Mean Corpuscular HGB Conc 33.0 g/dL (30-55); Mean Corpuscular Hemoglobin 30.5 pg (27-33); Mean Corpuscular Volume 92.4 fl (82-101); Nucleated Red Blood Cells % 0 %; Platelet Count 260 10^3/cmm (157-399); Red Blood Count 4.46 10^6/uL (3.85-5.65); White Blood Count 8.62 10^3/uL (3.29-11.43)
[2025-03-24 18:20] LABS: Troponin(5th) Baseline 17 ng/L (0-15)
[2025-03-24 18:23] LABS: Ammonia 26 umol/L (16-60)
[2025-03-24 18:36] LABS: Alanine Aminotransferase 18 U/L (0-41); Albumin Level 4.7 g/dL (3.5-5.2); Alkaline Phosphatase 84 U/L (40-130); Anion Gap 16.1 (5-19); Aspartate Amino Transferase 45 U/L (0-40); Blood Urea Nitrogen 13 mg/dL (6-20); Calcium 10.1 mg/dL (8.5-10.5); Carbon Dioxide 25 mmol/L (22-29); Chloride 99 mmol/L (98-107); Creatinine Clr Calc Pharmacy 143.0276; Globulin 3.1 g/dL (1.3-4.6); Glucose 95 mg/dL (65-115); NT Pro B Type Natriuretic Pept 60 pg/mL (0-125); Osmolality Calculated 282 mOsm/kg (285-295); Potassium 4.1 mmol/L (3.5-5.1); Sodium 136 mmol/L (136-145); Total Protein 7.8 g/dL (6.6-8.7)
[2025-03-24 19:42] VITALS: BP 114/72; PULSE 82; RESP 20; TEMP 36.5; O2SAT 98
[2025-03-24 21:12] LABS: Troponin 5 2HR 19.05 ng/L (0-15); Troponin 5 2HR Delta 2.05 ABS# (0-10)
--- NOTE | 2025-03-24 23:35 | ECG_ITS ---
[facility] Test Date: 2025-03-24 Pat Name: Kareem Dunaway Department: Room: 151 Gender: Male Field Operator: : 1980 Requested By: Anirudh Hall Order Number: [id number] [place] MD: Alok Townsend M.D. Measurements Intervals [place] Rate: 71 P: 55 [place]: 156 QRS: 83 QRSD: 115 T: 54 QT: 406 QTc: 444 Interpretive Statements SINUS RHYTHM MODERATE INTRAVENTRICULAR CONDUCTION DELAY [110+ ms QRS DURATION] NONSPECIFIC T-WAVE ABNORMALITY No previous ECG available for comparison Electronically Signed On 03-28-2025 09:35:45 CDT by Alok Townsend M.D. [email or web address]
[2025-03-25 00:14] LABS: Troponin 5 6HR 16.18 ng/L (0-15)
[2025-03-25 00:16] LABS: Troponin 5 6HR Delta -0.82 ng/L (0-12)
[2025-03-25] MEDS: HYDROcodone-acetaminophen 5-325 mg Tablet 1 TAB PO ×4 (00:51→20:24)
[2025-03-25] MEDS: cetylpyridinium Lozenge 1 EACH MUCOUS MEM (02:44)
--- NOTE | 2025-03-25 06:05 | PC.NURSE ---
vs not completed per charge nurse, resp 16
[2025-03-25] MEDS: FLUPHENAZINE HCL 5 MG 5 EACH PO ×3 (08:17→20:26)
[2025-03-25] MEDS: NADOLOL 40 MG 40 EACH PO (08:17)
--- NOTE | 2025-03-25 08:44 | PC.NURSE ---
Pt. has been snorting the equal. All packages was taken from him. Pt. had about 20 in his scrub top pocket.
[2025-03-25 14:00] VITALS: BP 129/83; PULSE 75; RESP 18; TEMP 36.8; O2SAT 99
--- NOTE | 2025-03-25 15:27 | PC.NURSE ---
Signee called pt.'s d/t pt. had stated he was taking Lactulose 30ml BID, but only as needed d/t high ammonia levels and constipation. Signee informed Dr. Nieves of this. Dr. Nieves looked over pt.'s labs and ammonia levels are WNL at this time.
--- NOTE | 2025-03-25 15:52 | P.NPUPN_ITS ---
Subjective NPU 2 Subjective: 44-year-old male with bipolar disorder a dmitted with odd behavior. The patient continued to appear psychotic. He had struggled to fall asleep last night. He he had continued to try to divert his oral medications instead of swallowing them. He had allegedly snorted NutraSweet yesterday stating that it tasted the same intranasally as it did orally. He had engaged in some unusual behavior attempting to run through the halls and reported that he needed to remain fit while doing push-ups and sit ups on the floor. The patient had remained intrusive and had difficulties with redirection often asking to see various staff members repeatedly. Mental Status Exam 2 MSE Comments: This is a well-nourished well-developed white male in hospital scrubs with adequate grooming and fair eye contact with limited tattoos on both arms. No abnormal involuntary motor movements except for significant psychomotor agitation. He was minimally cooperative with exam in mild to moderate distress. Speech was increased in rate and normal in volume, feeling slightly pressured but with significant dysarthria. Mood described as great. His affect was expansive and excessively euphoric. Thought process was disorganized. Thought content: Patient denied suicidal or homicidal ideation. There were no delusions reported but significant magical thinking and bizarre thinking, he did not report auditory or visual hallucinations but reported strange things that could just be imagined. The patient exhibits signs of restlessness and irritability. Attention and concentration were limited and his recent and remote memory appeared impaired. He is alert and oriented to person, place. Insight and judgment are impaired. Impulse control is impaired. Vitals/I&O/Wt Last Vital Signs Temp 97.7 F 03/24/25 19:42 Pulse 82 03/24/25 19:42 Resp 20 H 03/24/25 19:42 BP 114/72 03/24/25 19:42 Pulse Ox 98 03/24/25 19:42 O2 Del Method Room Air 03/24/25 19:42 O2 Flow Rate 96 03/20/25 03:21 Weight last 48 hrs Weight 86.863 kg Data NPU 03/24/25 17:50 03/24/25 17:50 A&P Assessment and plan (1) Bipolar disorder: (2) Manic behavior: (3) Alcohol use disorder: (4) Hx of Wernicke's encephalopathy: (5) Psychosis: (6) Cannabis use disorder: Plan This is a 44-year-old white male with a reported long history of bipolar disorder but recent history of concern for Warnicke syndrome with recent hospitalization in [facility] which ended with him being put on fluphenazine with little to no impact. Reports of allergies to Haldol and Risperdal and not doing well with lithium either. Discussed Abilify with family versus Invega but given Risperdal allergy or at least problems with Risperdal we will avoid Invega at this time. Complicating the matter is this vague alcohol use and reports of Warnicke's as well as issues related to his cannabis use and the possibility of cannabis being at the heart of his psychosis. 1. Continue abilify 30mg daily, fluophenazine as prescribed, and continue thiamine and folate. Continue Klonopin 1 mg twice daily and were going to titrate it to effect to try to make sure he is getting some sleep and hopefully slowing down however nurse reports that he is cheeking the medication with a clear understanding of the impact of the Klonopin and he is not wanting to sleep which is something he is critically in need of. 2. Encourage individual, group and milieu therapy. 3. Continue every 15 minute checks for safety. 4. Encourage sober living treatment after discharge at the highest level of care to which she is willing to commit. 5. Evaluate against a backdrop of a 96-hour hold. Will likely need a 21-day hold. 6. Will try to get hospital records to see where this concept of Warnicke's comes from given a very vague history of alcohol use. Appreciate medical consult. PDMP PDMP Reviewed: Not Reviewed Involuntary Hold Information 2 Hold Status: Legal Status: 96 Hour Hold Date/Time Hold Expires: 03/25/2025 @ 0705 Attestations NPU 2 Medical Necessity Statement*: Inpatient hospitalization is medically necessary and the clinically appropriate intervention at this time. We will monitor medications and make changes as indicated. The patient's likely length of stay is 7-10 days. Coding Level of Care Code Acute Code for [facility] Fwd Diagnoses Bipolar disorder F31.9 Manic behavior F30.10 Alcohol use disorder F10.90 Hx of Wernicke's encephalopathy Z86.39 Psychosis F29 Cannabis use disorder F12.90
[2025-03-25 19:31] VITALS: BP 112/75; PULSE 87; RESP 18; TEMP 36.4; O2SAT 96
[2025-03-26 06:00] VITALS: BP 114/80; PULSE 91; RESP 21; TEMP 36.4; O2SAT 99
[2025-03-26] MEDS: cetylpyridinium Lozenge 1 EACH MUCOUS MEM ×2 (06:12→19:37)
[2025-03-26] MEDS: FLUPHENAZINE HCL 5 MG 5 EACH PO ×3 (07:59→21:08)
[2025-03-26] MEDS: NADOLOL 40 MG 40 EACH PO (07:59)
[2025-03-26] MEDS: HYDROcodone-acetaminophen 5-325 mg Tablet 1 TAB PO ×3 (08:01→21:09)
--- NOTE | 2025-03-26 09:49 | USCV_ITS ---
GumeKareem Age: 44 Gender: M : 1980 Exam Date: 03/26/2025 14:04 Ordering Phys: Anirudh Hall MD Technologist: [place] [facility] [place]: bilat [place] PROCEDURES: The venous duplex Doppler examination of both lower extremities was performed in the standard fashion. FINDINGS: Normal 2-D Doppler and augmentation and compressibility throughout the lower extremity venous structures. Additional imaging through the proximal calf veins also reveals no thrombus. Limited evaluation of the greater saphenous vein is patent with no thrombus. CONCLUSIONS No evidence of right lower extremity DVT. No evidence of left lower extremity DVT. Benson Mott MD (Electronically Signed) Final Date: 27 March 2025 16:54 S
[2025-03-26 14:00] VITALS: BP 122/73; PULSE 82; RESP 18; TEMP 36.7; O2SAT 100
[2025-03-26] MEDS: artificial tears Op Soln 15 mL Btl 1 DROP EYE-BOTH (15:13)
--- NOTE | 2025-03-26 15:18 | P.NPUPN_ITS ---
Subjective NPU 2 Subjective: 44-year-old male with bipolar disorder a dmitted with odd and no disorganized behavior. Patient continues to have unusual thoughts and remains intrusive on the milieu. Patient reports no side effects from medication. Patient did not snort nutrasweet today and has not been cheeking his medications. Patient reports wishing to go home. The patient continued to appear psychotic. Patient had slept better last night. Patient had reported that he wanted to give his slippers away to a body of his he was leaving from the hospital today. Patient continued to have occasional loud vocalizations on the unit. He had been running on the unit at times and tapping saul repeatedly. He was not able to attend groups. Mental Status Exam 2 MSE Comments: This is a well-nourished well-developed white male in hospital scrubs with adequate grooming and fair eye contact with limited tattoos on both arms. No abnormal involuntary motor movements except for significant psychomotor agitation. He was minimally cooperative with exam in mild to moderate distress. Speech was increased in rate and normal in volume with less dysarthria appreciated. Mood described as excellent. His affect was labile. Thought process was tangential. Thought content: Patient denied suicidal or homicidal ideation. There were no delusions reported but significant magical thinking and bizarre thinking, he did not report auditory or visual hallucinations. Attention and concentration were limited and his recent and remote memory appeared impaired. He is alert and oriented to person, place. Insight and judgment are impaired. Impulse control is impaired. Vitals/I&O/Wt Last Vital Signs Temp 98.0 F 03/26/25 14:00 Pulse 82 03/26/25 14:00 Resp 18 03/26/25 14:00 BP 122/73 03/26/25 14:00 Pulse Ox 100 03/26/25 14:00 O2 Del Method Room Air 03/26/25 06:00 O2 Flow Rate 96 03/20/25 03:21 Data NPU 03/24/25 17:50 03/24/25 17:50 A&P Assessment and plan (1) Bipolar disorder: (2) Manic behavior: (3) Alcohol use disorder: (4) Hx of Wernicke's encephalopathy: (5) Psychosis: (6) Cannabis use disorder: Plan This is a 44-year-old white male with a reported long history of bipolar disorder but recent history of concern for Warnicke syndrome with recent hospitalization in [facility] which ended with him being put on fluphenazine with little to no impact. Reports of allergies to Haldol and Risperdal and not doing well with lithium either. Discussed Abilify with family versus Invega but given Risperdal allergy or at least problems with Risperdal we will avoid Invega at this time. Complicating the matter is this vague alcohol use and reports of Warnicke's as well as issues related to his cannabis use and the possibility of cannabis being at the heart of his psychosis. 1. Continue abilify 30mg daily, fluphenazine as prescribed, and continue thiamine and folate. Continue Klonopin 1 mg twice daily and were going to titrate it to effect to try to make sure he is getting some sleep and hopefully slowing down however nurse reports that he is cheeking the medication with a clear understanding of the impact of the Klonopin and he is not wanting to sleep which is something he is critically in need of. 2. Encourage individual, group and milieu therapy. 3. Continue every 15 minute checks for safety. 4. Encourage sober living treatment after discharge at the highest level of care to which she is willing to commit. 5. Evaluate against a backdrop of a 96-hour hold. Will likely need a 21-day hold with hearing scheduled tommorow. 6. Will try to get hospital records to see where this concept of Wernicke's comes from given a very vague history of alcohol use. Appreciate medical consult. PDMP PDMP Reviewed: Not Reviewed Involuntary Hold Information 2 Hold Status: Legal Status: 21 Day Hold Date/Time Hold Expires: 21 day hearing 03/27/25@1000 Attestations NPU 2 Medical Necessity Statement*: Inpatient hospitalization is medically necessary and the clinically appropriate intervention at this time. We will monitor medications and make changes as indicated. The patient's likely length of stay is 7-10 days. Coding Level of Care Code Acute Code for Chg Fwd Diagnoses Bipolar disorder F31.9 Manic behavior F30.10 Alcohol use disorder F10.90 Hx of Wernicke's encephalopathy Z86.39 Psychosis F29 Cannabis use disorder F12.90
--- NOTE | 2025-03-26 16:12 | P.PN_ITS ---
Subjective 2 Subjective: Patient was seen this morning, he is ambulating around the neuropsychiatric unit, denies any shortness of breath, no chest pain, Vitals/I&O/Wt Last Vital Signs Temp 98.0 F 03/26/25 14:00 Pulse 82 03/26/25 14:00 Resp 18 03/26/25 14:00 BP 122/73 03/26/25 14:00 Pulse Ox 100 03/26/25 14:00 O2 Del Method Room Air 03/26/25 06:00 O2 Flow Rate 96 03/20/25 03:21 Physical Exam 2 Const: COMMON NORMALS: no acute distress and patient oriented x3 Resp: COMMON NORMALS: normal respiratory effort, No retractions, No use of accessory muscles and clear to auscultation bilaterally AUSCULTATION: clear to auscultation bilaterally Cardio: COMMON NORMALS: regular rate, regular rhythm, S1 normal heart sound present and S2 normal heart sound present RATE: regular rate RHYTHM: r egular rhythm HEART SOUNDS: S1 normal heart sound present and S2 normal heart sound present GI: COMMON NORMALS: Normal to inspection, nondistended, normoactive bowel sounds present and non-tender Extremity: NARRATIVE EXTREMITY EXAM: 1+ edema, bilateral extremity Neuro: COMMON NORMALS: patient oriented x3 Psych: COMMON NORMALS: mental status grossly normal Data 03/24/25 17:50 03/24/25 17:50 A&P Assessment and plan (1) Bilateral lower extremity edema: Plan - Likely side effect of being on both Norvasc and nifedipine - Will hold both medications -chlorthalidone tomorrow -Status post 1 dose Lasix - Order venous ultrasound - Monitor blood pressure closely, monitor creatinine PDMP PDMP Reviewed: Not Reviewed Attestations 2 Medical Necessity Statement*: Patient requires hospitalization for bilateral extreme edema Diagnoses Bilateral lower extremity edema R60.0
[2025-03-26 19:38] VITALS: BP 131/80; PULSE 88; RESP 18; TEMP 36.9; O2SAT 97
[2025-03-27] MEDS: cetylpyridinium Lozenge 1 EACH MUCOUS MEM ×2 (03:49→19:34)
[2025-03-27] MEDS: HYDROcodone-acetaminophen 5-325 mg Tablet 1 TAB PO ×3 (03:59→21:21)
[2025-03-27 06:00] VITALS: BP 126/90; PULSE 76; RESP 18; TEMP 36.7; O2SAT 98
[2025-03-27] MEDS: FLUPHENAZINE HCL 5 MG 5 EACH PO ×2 (08:04→14:36)
[2025-03-27] MEDS: NADOLOL 40 MG 40 EACH PO (08:04)
--- NOTE | 2025-03-27 10:04 | PC.NURSE ---
Pt [place] [address] [facility] [facility].
[2025-03-27 14:00] VITALS: BP 146/86; PULSE 77; RESP 18; TEMP 36.6; O2SAT 97
--- NOTE | 2025-03-27 14:26 | P.NPUPN_ITS ---
Subjective NPU 2 Subjective: 44-year-old male with bipolar disorder a dmitted with odd and disorganized behavior. The patient did not require any restraints or seclusions. He had slept only 2 to 3 hours at night. He continued to remain somewhat intrusive on the unit. The patient had continued to struggle with boundaries. He had stated that he wished to go home. The patient had presented to the narcotics detective today and stated that he was hoping to go home soon. He had reported no previous trial on olanzapine. He had reported struggles with his thoughts moving fast. He had described having episodes of deanna in the past with previous trials on Depakote and lithium. He had not been cheeking his medications and had allowed nurses to check his mouth to see if he had swallowed the medications. He was not able to attend groups. Mental Status Exam 2 MSE Comments: This is a well-nourished well-developed white male in hospital scrubs with adequate grooming and fair eye contact with some tattoos on both arms. He appeared somewhat hyper motoric his he was pacing the hallways repeatedly. Continue to show evidence of poor boundaries. There was no abnormal involuntary motor movements except for significant psychomotor activation. He was partially cooperative with exam in mild to moderate distress. Speech was increased in rate but decreased in volume with less dysarthria appreciated. Mood described as good. His affect was constricted today. Thought process was tangential. Thought content: Patient denied suicidal or homicidal ideation. There were no delusions reported but significant magical thinking and bizarre thinking, he did not report auditory or visual hallucinations. Attention and concentration were limited and his recent and remote memory appeared impaired. He is alert and oriented to person, place. Insight and judgment are impaired. Impulse control is impaired. Vitals/I&O/Wt Last Vital Signs Temp 98.1 F 03/27/25 06:00 Pulse 76 03/27/25 06:00 Resp 18 03/27/25 06:00 BP 126/90 03/27/25 06:00 Pulse Ox 98 03/27/25 06:00 O2 Del Method Room Air 03/27/25 06:00 O2 Flow Rate 96 03/20/25 03:21 Data NPU 03/24/25 17:50 03/24/25 17:50 A&P Assessment and plan (1) Bipolar disorder: (2) Manic behavior: (3) Alcohol use disorder: (4) Hx of Wernicke's encephalopathy: (5) Psychosis: (6) Cannabis use disorder: Plan This is a 44-year-old white male with a reported long history of bipolar disorder but recent history of concern for Warnicke syndrome with recent hospitalization in [facility] which ended with him being put on fluphenazine with little to no impact. Reports of allergies to Haldol and Risperdal and not doing well with lithium either. Discussed Abilify with family versus Invega but given Risperdal allergy or at least problems with Risperdal we will avoid Invega at this time. Complicating the matter is this vague alcohol use and reports of Warnicke's as well as issues related to his cannabis use and the possibility of cannabis being at the heart of his psychosis. 1. Continue Abilify 30mg daily, continue fluphenazine at 15mg/day (high dose) and move klonopin all to nighttime dose to 2mg at night while adding zyprexa 5mg at night. 2. Encourage individual, group and milieu therapy. 3. Continue every 15 minute checks for safety. 4. Encourage sober living treatment after discharge at the highest level of care to which she is willing to commit. 5. Patient now on 21 day hold. 6. Will try to get hospital records to see where this concept of Wernicke's comes from given a very vague history of alcohol use. Appreciate medical consult. PDMP PDMP Reviewed: Not Reviewed Involuntary Hold Information 2 Hold Status: Legal Status: 21 Day Hold Date/Time Hold Expires: 04/17/2025 Attestations NPU 2 Medical Necessity Statement*: Inpatient hospitalization is medically necessary and the clinically appropriate intervention at this time. We will monitor medications and make changes as indicated. The patient's likely length of stay is 7-10 days. Coding Level of Care Code Acute Code for [facility] Fwd Diagnoses Bipolar disorder F31.9 Manic behavior F30.10 Alcohol use disorder F10.90 Hx of Wernicke's encephalopathy Z86.39 Psychosis F29 Cannabis use disorder F12.90
[2025-03-27 19:45] VITALS: BP 121/83; PULSE 78; RESP 18; TEMP 36.5; O2SAT 97
[2025-03-27 22:00] VITALS: BP 121/83; PULSE 78; RESP 18; TEMP 36.5; O2SAT 97
[2025-03-28 06:00] VITALS: BP 119/72; PULSE 87; RESP 16; TEMP 36.4; O2SAT 100
[2025-03-28] MEDS: HYDROcodone-acetaminophen 5-325 mg Tablet 1 TAB PO ×2 (06:12→19:13)
[2025-03-28] MEDS: FLUPHENAZINE HCL 5 MG 5 EACH PO ×2 (08:13→17:04)
[2025-03-28] MEDS: NADOLOL 40 MG 40 EACH PO (08:13)
--- NOTE | 2025-03-28 08:50 | NUR.SHIFT ---
Pt slept approx 2 hours last night. He has been up and pacing the unit all morning. He mumbles when he speaks and is really hard to understand most times. He denies anxiety or depression. No reports of SI/HI or hallucinations. He rates his low back pain a 8/10. He asks for his PRN hydrocodone occasionally.
--- NOTE | 2025-03-28 13:36 | W.PM.NPUPNS ---
Subjective NPU Subjective: 44-year-old male with bipolar disorder admitted with odd and disorganized behavior. The patient had struggled with sleep again last night. He had been up at night pacing and taken his mattress out of his room while appearing excessively activated. He had reported feeling tired and did have a brief nap this morning. He had continued to appear at times intrusive. He had continued to report that his thoughts were moving fast. He had minimized having any problems with memory. The patient had once again slept only 2 to 3 hours at night. He did not require any restraints or seclusions. The patient had reported that he was hopeful about going home soon. He had reported previous failures on lithium and Depakote for bipolar. He had reported that he had been without medicine for several years. The had reported that the patient had been manic for the past 6 weeks. Mental Status Exam MSE Comments: This is a well-nourished well-developed white male in hospital scrubs with adequate grooming and fair eye contact with some tattoos on both arms. He appeared somewhat hypermotoric while pacing the hallway repeatedly. He continued to show evidence of poor boundaries. There was no abnormal involuntary motor movements except for significant psychomotor activation. He was partially cooperative with exam in mild to moderate distress. Speech was in rate but decreased in volume with less dysarthria appreciated. Mood described as good. His affect was constricted today. Thought process was tangential. Thought content: Patient denied suicidal or homicidal ideation. There were no delusions reported but significant magical thinking and bizarre thinking, he did not report auditory or visual hallucinations. Attention and concentration were limited and his recent and remote memory appeared impaired. He is alert and oriented to person, place. Insight and judgment are impaired. Impulse control is impaired. Vitals/I&O/Wt Last Vital Signs Temp 97.5 F L 03/28/25 06:00 Pulse 87 03/28/25 06:00 Resp 16 03/28/25 06:00 BP 119/72 03/28/25 06:00 Pulse Ox 100 03/28/25 06:00 O2 Del Method Room Air 03/28/25 06:00 O2 Flow Rate 96 03/20/25 03:21 Data NPU 03/24/25 17:50 03/24/25 17:50 A&P Assessment and plan (1) Bipolar disorder: (2) Manic behavior: (3) Alcohol use disorder: (4) Hx of Wernicke's encephalopathy: (5) Psychosis: (6) Cannabis use disorder: Plan This is a 44-year-old white male with a reported long history of bipolar disorder but recent history of concern for Warnicke syndrome with recent hospitalization in [facility] which ended with him being put on fluphenazine with little to no impact. Reports of allergies to Haldol and Risperdal and not doing well with lithium either. Discussed Abilify with family versus Invega but given Risperdal allergy or at least problems with Risperdal we will avoid Invega at this time. Complicating the matter is this vague alcohol use and reports of Warnicke's as well as issues related to his cannabis use and the possibility of cannabis being at the heart of his psychosis. 1. Continue Abilify 30mg daily, reduced fluphenazine to 10mg/day (high dose) and move klonopin all to nighttime dose to 2mg at night with increase in zyprexa to 15mg at night. 2. Encourage individual, group and milieu therapy. 3. Continue every 15 minute checks for safety. 4. Encourage sober living treatment after discharge at the highest level of care to which she is willing to commit. 5. Patient now on 21 day hold. 6. Will try to get hospital records to see where this concept of Wernicke's comes from given a very vague history of alcohol use. Appreciate medical consult. PDMP PDMP Reviewed: Not Reviewed Involuntary Hold Information Hold Status: Legal Status: 21 Day Hold Date/Time Hold Expires: 04/17/2025 Attestations NPU Medical Necessity Statement*: Inpatient hospitalization is medically necessary and the clinically appropriate intervention at this time. We will monitor medications and make changes as indicated. The patient's likely length of stay is 7-10 days. Coding Level of Care Code Acute Code for [facility] Diagnoses Bipolar disorder F31.9 Manic behavior F30.10 Alcohol use disorder F10.90 Hx of Wernicke's encephalopathy Z86.39 Psychosis F29 Cannabis use disorder F12.90
[2025-03-28 14:00] VITALS: BP 124/78; PULSE 80; RESP 18; TEMP 36.3; O2SAT 100
[2025-03-28 21:42] VITALS: BP 124/84; PULSE 83; RESP 21; O2SAT 94
--- NOTE | 2025-03-28 23:02 | PC.NURSE ---
Patient at nurses station asking for medication to help him sleep. Vistaril 50 mg po given for this.
[2025-03-29] MEDS: LORazepam 1 MG/0.5 ML injection 2 MG IM (00:54)
[2025-03-29] MEDS: diphenhydrAMINE 50 mg/mL SDV 1mL IM (00:54)
--- NOTE | 2025-03-29 00:55 | PC.NURSE ---
patient was verbally escalated in his room. Responding to auditory stimuli and visual stimuli. He said something to the effect this deandra is writing on here. Patient went and hit the back of the toilet. Patient was trying to enter other peers room. Affect was anxious. Given lorazpam 2 mg IM right deltoid and benadryl 50 im left deltoid. Security here for standby/
[2025-03-29 06:00] VITALS: BP 104/74; PULSE 78; RESP 20; TEMP 37; O2SAT 100
[2025-03-29] MEDS: NADOLOL 40 MG 40 EACH PO (08:18)
[2025-03-29] MEDS: HYDROcodone-acetaminophen 5-325 mg Tablet 1 TAB PO (10:03)
[2025-03-29 14:00] VITALS: BP 114/78; PULSE 78; RESP 17; O2SAT 98
--- NOTE | 2025-03-29 15:21 | P.NPUPN_ITS ---
Subjective NPU 2 Subjective: 44-year-old male with bipolar disorder a dmitted with odd and disorganized behavior. The patient continued to have struggles with being unable to sleep. He was awake at 4:00 in the morning pacing the hallway and requiring significant redirection while appearing agitated. He had continued to struggle with communicating while having periods of mumbling and pressured speech. He had reported previous struggles being on lithium but did not reported having been on Depakote in the past. He had continued to endorse that his thoughts were moving quickly. He reported no suicidal thoughts at this time. He stated that he had been hopeful about going home when he was better. Mental Status Exam 2 MSE Comments: This is a well-nourished well-developed white male in hospital scrubs with adequate grooming and fair eye contact with some tattoos on both arms. He appeared somewhat hypermotoric while pacing the hallway repeatedly. He continued to show evidence of poor boundaries. There was no abnormal involuntary motor movements except for significant psychomotor activation. He was partially cooperative with exam in mild to moderate distress. Speech was pressured but decreased in volume with continued dysarthria appreciated. Mood described as manic. His affect was expansive today. Thought process was tangential. Thought content: Patient denied suicidal or homicidal ideation. There were no delusions reported but significant magical thinking and bizarre thinking, he did not report auditory or visual hallucinations. Attention and concentration were limited and his recent and remote memory appeared impaired. He is alert and oriented to person, place. Insight and judgment are impaired. Impulse control is impaired. Patient had shuffling gait. Vitals/I&O/Wt Last Vital Signs Temp 98.6 F 03/29/25 06:00 Pulse 78 03/29/25 14:00 Resp 17 03/29/25 14:00 BP 114/78 03/29/25 14:00 Pulse Ox 98 03/29/25 14:00 O2 Del Method Room Air 03/29/25 06:00 O2 Flow Rate 96 03/20/25 03:21 Data NPU 03/24/25 17:50 03/24/25 17:50 A&P Assessment and plan (1) Bipolar disorder: (2) Manic behavior: (3) Alcohol use disorder: (4) Hx of Wernicke's encephalopathy: (5) Psychosis: (6) Cannabis use disorder: Plan This is a 44-year-old white male with a reported long history of bipolar disorder but recent history of concern for Wernicke syndrome with recent hospitalization in [facility] which ended with him being put on fluphenazine with little to no impact. Reports of allergies to Haldol and Risperdal and not doing well with lithium either. Discussed Abilify with family versus Invega but given Risperdal allergy or at least problems with Risperdal we will avoid Invega at this time. Complicating the matter is this vague alcohol use and reports of Warnicke's as well as issues related to his cannabis use and the possibility of cannabis being at the heart of his psychosis. 1. Patient not appearing signficantly better and shows evidence of some eps with shuffling gait. Stop Fluphenazine, continue abilify and stop zyprexa routinely with trial of Seroquel [id number] for deanna. Monitor for orthostasis. Will consider depakote 500mg er in am. 2. Encourage individual, group and milieu therapy. 3. Continue every 15 minute checks for safety. 4. Encourage sober living treatment after discharge at the highest level of care to which she is willing to commit. 5. Patient now on 21 day hold. 6. Will try to get hospital records to see where this concept of Wernicke's comes from given a very vague history of alcohol use. Appreciate medical consult. PDMP PDMP Reviewed: Not Reviewed Involuntary Hold Information 2 Hold Status: Legal Status: 21 Day Hold Date/Time Hold Expires: 04/17/2025 Attestations NPU 2 Medical Necessity Statement*: Inpatient hospitalization is medically necessary and the clinically appropriate intervention at this time. We will monitor medications and make changes as indicated. The patient's likely length of stay is 7-10 days. Coding Level of Care Code Acute Code for [facility] Fwd Diagnoses Bipolar disorder F31.9 Manic behavior F30.10 Alcohol use disorder F10.90 Hx of Wernicke's encephalopathy Z86.39 Psychosis F29 Cannabis use disorder F12.90
[2025-03-29] MEDS: quetiapine XR (24HR) 300 mg Tablet PO (17:21)
--- NOTE | 2025-03-29 22:33 | PC.NURSE ---
vs not completed per charge nurse, resp 16
[2025-03-30] MEDS: cetylpyridinium Lozenge 1 EACH MUCOUS MEM (05:16)
--- NOTE | 2025-03-30 05:16 | NUR.SHIFT ---
Patient slept approximately 9 hours this shift. This morning he is more alert. His speech is easier to understand. He reports a sore throat. Posterior pharynx with erythema and tonsils mildly swollen. He has some yellow post nasal drainage. Given Tylenol 650 mg po and cepachol lozenge for this.
[2025-03-30 06:00] VITALS: BP 112/80; PULSE 85; RESP 19; TEMP 36.4; O2SAT 100
[2025-03-30] MEDS: divalproex ER 500 mg Tablet (24H) PO (08:11)
[2025-03-30] MEDS: NADOLOL 40 MG 40 EACH PO (08:12)
[2025-03-30] MEDS: HYDROcodone-acetaminophen 5-325 mg Tablet 1 TAB PO (10:41)
[2025-03-30 14:00] VITALS: BP 109/68; PULSE 82; RESP 18; TEMP 36.7; O2SAT 100
--- NOTE | 2025-03-30 16:56 | P.NPUPN_ITS ---
Subjective NPU 2 Subjective: 44-year-old male with bipolar disorder a dmitted with odd and disorganized behavior. The patient appeared to sleep better with the addition of Seroquel extended release at 300 mg daily having slept for 7 hours last night. The patient reported no side effects. He had continued to remain intrusive and reported being annoyed by other peers on the unit. Patient continued to be difficult to understand at this time but appeared less agitated. The patient had reported that he still felt manic . Mental Status Exam 2 MSE Comments: This is a well-nourished well-developed white male in hospital scrubs with adequate grooming and fair eye contact with some tattoos on both arms. He appeared somewhat hypermotoric while pacing the hallway repeatedly. He continued to show evidence of poor boundaries. There was no abnormal involuntary motor movements and mild shuffling gait appreciated today. He was partially cooperative with exam in mild to moderate distress. Speech remained pressured with diminished volume, muffled with continued dysarthria appreciated. Mood described as good His affect was expansive still. Thought process was tangential. Thought content: Patient denied suicidal or homicidal ideation. There were no delusions reported but significant magical thinking and bizarre thinking, he did not report auditory or visual hallucinations. Attention and concentration were limited and his recent and remote memory appeared impaired. He is alert and oriented to person, place. Insight and judgment are impaired. Impulse control is impaired. Vitals/I&O/Wt Last Vital Signs Temp 98.1 F 03/30/25 14:00 Pulse 82 03/30/25 14:00 Resp 18 03/30/25 14:00 BP 109/68 03/30/25 14:00 Pulse Ox 100 03/30/25 14:00 O2 Del Method Room Air 03/30/25 06:00 O2 Flow Rate 96 03/20/25 03:21 Data NPU 03/24/25 17:50 03/24/25 17:50 A&P Assessment and plan (1) Bipolar disorder: (2) Manic behavior: (3) Alcohol use disorder: (4) Hx of Wernicke's encephalopathy: (5) Psychosis: (6) Cannabis use disorder: Plan This is a 44-year-old white male with a reported long history of bipolar disorder but recent history of concern for Wernicke syndrome with recent hospitalization in [facility] which ended with him being put on fluphenazine with little to no impact. Reports of allergies to Haldol and Risperdal and not doing well with lithium either. Discussed Abilify with family versus Invega but given Risperdal allergy or at least problems with Risperdal we will avoid Invega at this time. Complicating the matter is this vague alcohol use and reports of Warnicke's as well as issues related to his cannabis use and the possibility of cannabis being at the heart of his psychosis. 1. Klonopin 2mg at night, increase seroquel xr to 400mg at 6PM. Decrease abilify to 20mg daily. Increase depakote to 750mg er in am. 2. Encourage individual, group and milieu therapy. 3. Continue every 15 minute checks for safety. 4. Encourage sober living treatment after discharge at the highest level of care to which she is willing to commit. 5. Patient now on 21 day hold. 6. Will try to get hospital records to see where this concept of Wernicke's comes from given a very vague history of alcohol use. Appreciate medical consult. PDMP PDMP Reviewed: Not Reviewed Involuntary Hold Information 2 Hold Status: Legal Status: 21 Day Hold Date/Time Hold Expires: 04/17/2025 Attestations NPU 2 Medical Necessity Statement*: Inpatient hospitalization is medically necessary and the clinically appropriate intervention at this time. We will monitor medications and make changes as indicated. The patient's likely length of stay is 7-10 days. Coding Level of Care Code Acute Code for [facility] Fwd Diagnoses Bipolar disorder F31.9 Manic behavior F30.10 Alcohol use disorder F10.90 Hx of Wernicke's encephalopathy Z86.39 Psychosis F29 Cannabis use disorder F12.90
[2025-03-30] MEDS: QUETIAPINE 400 MG PO (17:22)
[2025-03-30 19:54] VITALS: BP 134/83; PULSE 84; RESP 18; TEMP 36.6; O2SAT 96
[2025-03-31] MEDS: LORazepam 1 MG/0.5 ML injection 2 MG IM (00:03)
[2025-03-31] MEDS: diphenhydrAMINE 50 mg/mL SDV 1mL IM (00:03)
--- NOTE | 2025-03-31 00:54 | PC.NURSE ---
Patient was up in hallway and started to run. Patient had stripped his bed. He stated these kids have pissed and shit everywhere. He then walked to the bathroom and motioned this nurse saying come see what they did Noted toilet paper on the floor and patient had spit phlegm on the floor. Attempted redirection and reorientation without success. Patient was given lorazepam 2 mg IM right deltoid and diphehydramine 50 mg IM left deltoid. Patient started rubbing lotion on the nurses station window and attempted to kiss this nurse on the head. Security here for standby.
[2025-03-31 06:00] VITALS: RESP 18; BMI 22.6
--- NOTE | 2025-03-31 06:13 | PC.NURSE ---
Patient refused nurse notified.
[2025-03-31] MEDS: NADOLOL 40 MG 40 EACH PO (07:46)
[2025-03-31] MEDS: divalproex ER 250 mg Tablet (24H) 750 MG PO (07:46)
[2025-03-31] MEDS: HYDROcodone-acetaminophen 5-325 mg Tablet 1 TAB PO ×2 (10:46→21:25)
[2025-03-31 14:00] VITALS: BP 112/81; PULSE 81; RESP 17; TEMP 36.4; O2SAT 99
--- NOTE | 2025-03-31 16:24 | P.NPUPN_ITS ---
Subjective NPU 2 Subjective: 44-year-old male with bipolar disorder a dmitted with odd and disorganized behavior. The patient slept only 4 hours last night. He had continued to appear to require as needed medications at night for sleep. He continued to be excessively hyperactive on the unit and continued to show evidence of increased intrusiveness with poor boundaries noted. There was no increased agitation noted. He was redirectable. He had reported no complaints with his medication regimen. He had acknowledged that he continued to feel as if his thoughts were moving quickly. Mental Status Exam 2 MSE Comments: This is a well-nourished well-developed white male in hospital scrubs with adequate grooming and fair eye contact with some tattoos on both arms. He appeared somewhat hypermotoric while pacing the hallway repeatedly. He continued to show evidence of poor boundaries. There was no abnormal involuntary motor movements appreciated today. He was cooperative with exam in mild to moderate distress. Speech remained pressured with diminished volume, muffled and ddysarthria appreciated. Mood described as good His affect was restricted in range. Thought process was tangential. Thought content: Patient denied suicidal or homicidal ideation. There were no delusions reported but significant magical thinking and bizarre thinking, he did not report auditory or visual hallucinations. Attention and concentration were limited and his recent and remote memory appeared impaired. He is alert and oriented to person, place. Insight and judgment are impaired. Impulse control is impaired. Vitals/I&O/Wt Last Vital Signs Temp 97.5 F L 03/31/25 14:00 Pulse 81 03/31/25 14:00 Resp 17 03/31/25 14:00 BP 112/81 03/31/25 14:00 Pulse Ox 99 03/31/25 14:00 O2 Del Method Room Air 03/30/25 19:54 O2 Flow Rate 96 03/20/25 03:21 Weight last 48 hrs Weight 79.946 kg Data NPU 03/24/25 17:50 03/24/25 17:50 A&P Assessment and plan (1) Bipolar disorder: (2) Manic behavior: (3) Alcohol use disorder: (4) Hx of Wernicke's encephalopathy: (5) Psychosis: (6) Cannabis use disorder: Plan This is a 44-year-old white male with a reported long history of bipolar disorder but recent history of concern for Wernicke syndrome with recent hospitalization in [facility] which ended with him being put on fluphenazine with little to no impact. Reports of allergies to Haldol and Risperdal and not doing well with lithium either. Discussed Abilify with family versus Invega but given Risperdal allergy or at least problems with Risperdal we will avoid Invega at this time. Complicating the matter is this vague alcohol use and reports of Warnicke's as well as issues related to his cannabis use and the possibility of cannabis being at the heart of his psychosis. 1. Klonopin 2mg at night, continue seroquel xr to 400mg at 6PM. Continue abilify to 20mg daily. Continue depakote to 750mg er in am. 2. Encourage individual, group and milieu therapy. 3. Continue every 15 minute checks for safety. 4. Encourage sober living treatment after discharge at the highest level of care to which she is willing to commit. 5. Patient now on 21 day hold. 6. Will try to get hospital records to see where this concept of Wernicke's comes from given a very vague history of alcohol use. Appreciate medical consult. PDMP PDMP Reviewed: Not Reviewed Involuntary Hold Information 2 Hold Status: Legal Status: 21 Day Hold Date/Time Hold Expires: 04/17/2025 Attestations NPU 2 Medical Necessity Statement*: Inpatient hospitalization is medically necessary and the clinically appropriate intervention at this time. We will monitor medications and make changes as indicated. The patient's likely length of stay is 7-10 days. Coding Level of Care Code Acute Code for [facility] Fwd Diagnoses Bipolar disorder F31.9 Manic behavior F30.10 Alcohol use disorder F10.90 Hx of Wernicke's encephalopathy Z86.39 Psychosis F29 Cannabis use disorder F12.90
[2025-03-31] MEDS: QUETIAPINE 400 MG PO (16:56)
[2025-03-31 19:56] VITALS: BP 117/80; PULSE 85; RESP 18; O2SAT 98
[2025-04-01 06:00] VITALS: RESP 18
--- NOTE | 2025-04-01 06:04 | PC.NURSE ---
Patient refused charge nurse notified.
[2025-04-01] MEDS: artificial tears Op Soln 15 mL Btl 1 DROP EYE-BOTH (06:56)
[2025-04-01] MEDS: NADOLOL 40 MG 40 EACH PO (08:11)
[2025-04-01] MEDS: divalproex ER 250 mg Tablet (24H) 750 MG PO (08:11)
[2025-04-01 14:00] VITALS: BP 121/80; PULSE 72; RESP 17; TEMP 36.4; O2SAT 99
--- NOTE | 2025-04-01 17:58 | P.NPUPN_ITS ---
Subjective NPU 2 Subjective: 44-year-old male with bipolar disorder a dmitted with odd and disorganized behavior. The patient was able to sleep 7 hours. He had not required any as needed medications. He continued to remain intrusive spending many hours standing by the nurses desk speaking and discussing various things while engaging in some bizarre behaviors. He was redirectable and there was no acts of aggression. He had continued to report that his thoughts were moving fast. Mental Status Exam 2 MSE Comments: This is a well-nourished well-developed white male in hospital scrubs with adequate grooming and fair eye contact with some tattoos on both arms. He appeared somewhat hypermotoric while pacing the hallway repeatedly. He continued to show evidence of poor boundaries. There was no abnormal involuntary motor movements appreciated today. He was cooperative with exam in mild to moderate distress. Speech remained pressured with diminished volume, muffled and dysarthria appreciated. Mood described as allright His affect was restricted in range. Thought process was tangential with periods of looseness of associations. Thought content: Patient denied suicidal or homicidal ideation. There were no delusions reported but significant magical thinking and bizarre thinking, he did not report auditory or visual hallucinations. Attention and concentration were limited and his recent and remote memory appeared impaired. He is alert and oriented to person, place. Insight and judgment are impaired. Impulse control is impaired. Vitals/I&O/Wt Last Vital Signs Temp 97.6 F 04/01/25 14:00 Pulse 72 04/01/25 14:00 Resp 17 04/01/25 14:00 BP 121/80 04/01/25 14:00 Pulse Ox 99 04/01/25 14:00 O2 Del Method Room Air 03/31/25 19:56 O2 Flow Rate 96 03/20/25 03:21 Weight last 48 hrs Weight 79.946 kg Data NPU 03/24/25 17:50 03/24/25 17:50 A&P Assessment and plan (1) Bipolar disorder: (2) Manic behavior: (3) Alcohol use disorder: (4) Hx of Wernicke's encephalopathy: (5) Psychosis: (6) Cannabis use disorder: Plan This is a 44-year-old white male with a reported long history of bipolar disorder but recent history of concern for Wernicke syndrome with recent hospitalization in [facility] which ended with him being put on fluphenazine with little to no impact. Reports of allergies to Haldol and Risperdal and not doing well with lithium either. Discussed Abilify with family versus Invega but given Risperdal allergy or at least problems with Risperdal we will avoid Invega at this time. Complicating the matter is this vague alcohol use and reports of Warnicke's as well as issues related to his cannabis use and the possibility of cannabis being at the heart of his psychosis. 1. Klonopin 2mg at night, continue seroquel xr to 400mg at 6PM. Continue abilify to 20mg daily. Increase depakote to 1000mg er in am. 2. Encourage individual, group and milieu therapy. 3. Continue every 15 minute checks for safety. 4. Encourage sober living treatment after discharge at the highest level of care to which she is willing to commit. 5. Patient now on 21 day hold. 6. Will try to get hospital records to see where this concept of Wernicke's comes from given a very vague history of alcohol use. Appreciate medical consult. PDMP PDMP Reviewed: Not Reviewed Involuntary Hold Information 2 Hold Status: Legal Status: 21 Day Hold Date/Time Hold Expires: 04/17/2025 Attestations NPU 2 Medical Necessity Statement*: Inpatient hospitalization is medically necessary and the clinically appropriate intervention at this time. We will monitor medications and make changes as indicated. The patient's likely length of stay is 7-10 days. Coding Level of Care Code Acute Code for [facility] Fwd Diagnoses Bipolar disorder F31.9 Manic behavior F30.10 Alcohol use disorder F10.90 Hx of Wernicke's encephalopathy Z86.39 Psychosis F29 Cannabis use disorder F12.90
[2025-04-01] MEDS: quetiapine XR (24HR) 300 mg Tablet PO (18:35)
[2025-04-01 20:25] VITALS: BP 120/84; PULSE 83; RESP 16; TEMP 36.2; O2SAT 97
[2025-04-01] MEDS: HYDROcodone-acetaminophen 5-325 mg Tablet 1 TAB PO (21:04)
[2025-04-02 06:00] VITALS: BP 126/86; PULSE 57; RESP 16; TEMP 36.4; O2SAT 100
[2025-04-02] MEDS: NADOLOL 40 MG 40 EACH PO (07:49)
[2025-04-02] MEDS: divalproex ER 500 mg Tablet (24H) 1000 MG PO (07:50)
[2025-04-02] MEDS: HYDROcodone-acetaminophen 5-325 mg Tablet 1 TAB PO ×2 (08:51→20:44)
--- NOTE | 2025-04-02 13:17 | P.NPUPN_ITS ---
Subjective NPU 2 Subjective: 44-year-old male with bipolar disorder a dmitted with odd and disorganized behavior. The patient had reported improved sleep last night. He has been more redirectable and has been intrusive. He had reported that today was his anniversary with his and was hoping that she would come today for a visit. He had not refused any medicines today. The patient had reported that he was hopeful about going home soon. He had continued to complain about having some slurring in his speech. There was no aggression appreciated on the unit. He had reported that he felt that his thoughts were moving slower at this time. Mental Status Exam 2 MSE Comments: This is a well-nourished well-developed white male in hospital scrubs with adequate grooming and fair eye contact with some tattoos on both arms. There was continued psychomotor activation. He continued to show evidence of poor boundaries. There was no abnormal involuntary motor movements appreciated today. He was cooperative with exam in mild to moderate distress. Speech remained pressured with diminished volume, muffled and dysarthria appreciated. Mood described as better His affect was restricted. Thought process was linear thought content: Patient denied suicidal or homicidal ideation. There were no delusions reported but significant magical thinking and bizarre thinking, he did not report auditory or visual hallucinations. Attention and concentration were limited and his recent and remote memory appeared impaired. He is alert and oriented to person, place. Insight and judgment are impaired. Impulse control is impaired. Vitals/I&O/Wt Last Vital Signs Temp 97.5 F L 04/02/25 06:00 Pulse 57 L 04/02/25 06:00 Resp 16 04/02/25 06:00 BP 126/86 04/02/25 06:00 Pulse Ox 100 04/02/25 06:00 O2 Del Method Room Air 04/02/25 06:00 O2 Flow Rate 96 03/20/25 03:21 Data NPU 03/24/25 17:50 03/24/25 17:50 A&P Assessment and plan 1. Bipolar disorder: 2. Manic behavior: 3. Alcohol use disorder: 4. Hx of Wernicke's encephalopathy: 5. Psychosis: 6. Cannabis use disorder: Plan: This is a 44-year-old white male with a reported long history of bipolar disorder but recent history of concern for Wernicke syndrome with recent hospitalization in [facility] which ended with him being put on fluphenazine with little to no impact. Reports of allergies to Haldol and Risperdal and not doing well with lithium either. Discussed Abilify with family versus Invega but given Risperdal allergy or at least problems with Risperdal we will avoid Invega at this time. Complicating the matter is this vague alcohol use and reports of Warnicke's as well as issues related to his cannabis use and the possibility of cannabis being at the heart of his psychosis. 1. Klonopin 2mg at night, continue seroquel xr to 400mg at 6PM with plan to increase to Seroquel XR 500mg while eventually decreasing Abilify to 15mg in 1-2 days. Continue abilify to 20mg daily. Continue depakote 1000mg er in am. Check LFT, AST/ALT, CBC with diff in am. 2. Encourage individual, group and milieu therapy. 3. Continue every 15 minute checks for safety. 4. Encourage sober living treatment after discharge at the highest level of care to which she is willing to commit. 5. Patient now on 21 day hold. 6. Will try to get hospital records to see where this concept of Wernicke's comes from given a very vague history of alcohol use. Appreciate medical consult. PDMP PDMP Reviewed: Not Reviewed Involuntary Hold Information 2 Hold Status: Legal Status: 21 Day Hold Date/Time Hold Expires: 04/17/2025 Attestations NPU 2 Medical Necessity Statement*: Inpatient hospitalization is medically necessary and the clinically appropriate intervention at this time. We will monitor medications and make changes as indicated. The patient's likely length of stay is 7-10 days. Coding Level of Care Code Acute Code for [facility] Fwd Diagnoses Bipolar disorder F31.9 Manic behavior F30.10 Alcohol use disorder F10.90 Hx of Wernicke's encephalopathy Z86.39 Psychosis F29 Cannabis use disorder F12.90
[2025-04-02 14:00] VITALS: BP 126/79; PULSE 77; RESP 17; O2SAT 99
[2025-04-02 15:21] LABS: Hematocrit 44.0 % (37-53); Hemoglobin 14.50 g/dL (11.27-16.99); Mean Corpuscular HGB Conc 33.0 g/dL (30-55); Mean Corpuscular Hemoglobin 30.8 pg (27-33); Mean Corpuscular Volume 93.4 fl (82-101); Platelet Count 241 10^3/cmm (157-399); Red Blood Count 4.71 10^6/uL (3.85-5.65); White Blood Count 13.71 10^3/uL (3.29-11.43)
[2025-04-02 15:45] LABS: Alanine Aminotransferase 14 U/L (0-41); Albumin Level 4.7 g/dL (3.5-5.2); Alkaline Phosphatase 93 U/L (40-130); Aspartate Amino Transferase 20 U/L (0-40); Globulin 3.3 g/dL (1.3-4.6); Total Protein 8.0 g/dL (6.6-8.7)
[2025-04-02 16:38] LABS: Total Cells Counted 100 (0-100)
[2025-04-02 16:41] LABS: Absolute Segmented Neutrophil 10.3 10/cmm (1.6-7.1); Atypical Lymphs 2.0 % (0-5); Band Neutrophils Absolute 0.1 10^3/cmm (0.0-1.2)
[2025-04-02] MEDS: quetiapine XR (24HR) 50 mg Tablet 100 MG PO (17:22)
[2025-04-02] MEDS: quetiapine XR (24HR) 300 mg Tablet PO (17:22)
[2025-04-02] MEDS: cetylpyridinium Lozenge 1 EACH MUCOUS MEM (19:25)
[2025-04-02 19:53] VITALS: BP 116/84; PULSE 90; RESP 16; TEMP 36.3; O2SAT 100
[2025-04-03 06:00] VITALS: BP 106/81; PULSE 75; RESP 16; TEMP 36.6; O2SAT 97
[2025-04-03] MEDS: HYDROcodone-acetaminophen 5-325 mg Tablet 1 TAB PO (06:25)
[2025-04-03] MEDS: cetylpyridinium Lozenge 1 EACH MUCOUS MEM (06:33)
[2025-04-03] MEDS: artificial tears Op Soln 15 mL Btl 1 DROP EYE-BOTH (06:42)
[2025-04-03] MEDS: divalproex ER 500 mg Tablet (24H) 1000 MG PO (08:02)
[2025-04-03] MEDS: NADOLOL 40 MG 40 EACH PO (08:03)
[2025-04-03 14:00] VITALS: BP 129/82; PULSE 75; RESP 18; TEMP 36.8; O2SAT 99
--- NOTE | 2025-04-03 16:03 | W.PM.NPUPNS ---
Subjective NPU Subjective: Patient presented today reporting that he is feeling a little better. He continued to have mumbled speech per staff reports and direct observation but seeming to be a little better at communicating. Reportedly getting more sleep at this time which has led to staff feeling he is doing a bit better. He continued to think about as a necessary patient him getting better. We discussed hoping he had continued improvement so that we can discharge prior to needing to extend his hold. He denied any side effects of the medication. Mental Status Exam MSE Comments: This is a well-nourished well-developed white male in hospital scrubs with adequate grooming and fair eye contact with some tattoos on both arms. There was continued psychomotor activation. He continued to show evidence of poor boundaries. There was no abnormal involuntary motor movements appreciated today. He was cooperative with exam in mild to moderate distress. Speech remained pressured with diminished volume, muffled and dysarthria appreciated. Mood described as better His affect was restricted. Thought process was linear thought content: Patient denied suicidal or homicidal ideation. There were no delusions reported but significant magical thinking and bizarre thinking, he did not report auditory or visual hallucinations. Attention and concentration were limited and his recent and remote memory appeared impaired. He is alert and oriented to person, place. Insight and judgment are impaired. Impulse control is impaired. Vitals/I&O/Wt Last Vital Signs Temp 98.2 F 04/03/25 14:00 Pulse 75 04/03/25 14:00 Resp 18 04/03/25 14:00 BP 129/82 04/03/25 14:00 Pulse Ox 99 04/03/25 14:00 O2 Del Method Room Air 04/03/25 06:00 O2 Flow Rate 96 03/20/25 03:21 Data NPU 04/02/25 15:04 03/24/25 17:50 A&P Assessment and plan 1. Bipolar disorder: 2. Manic behavior: 3. Alcohol use disorder: 4. Hx of Wernicke's encephalopathy: 5. Psychosis: 6. Cannabis use disorder: Plan: This is a 44-year-old white male with a reported long history of bipolar disorder but recent history of concern for Wernicke syndrome with recent hospitalization in [facility] which ended with him being put on fluphenazine with little to no impact. Reports of allergies to Haldol and Risperdal and not doing well with lithium either. Discussed Abilify with family versus Invega but given Risperdal allergy or at least problems with Risperdal we will avoid Invega at this time. Complicating the matter is this vague alcohol use and reports of Warnicke's as well as issues related to his cannabis use and the possibility of cannabis being at the heart of his psychosis. 1. Klonopin 2mg at night, continue seroquel xr to 400mg at 6PM with plan to increase to Seroquel XR 500mg while eventually decreasing Abilify to 15mg in 1-2 days. Continue abilify to 20mg daily. Continue depakote 1000mg er in am. Check LFT, AST/ALT, CBC with diff in am. 2. Encourage individual, group and milieu therapy. 3. Continue every 15 minute checks for safety. 4. Encourage sober living treatment after discharge at the highest level of care to which she is willing to commit. 5. Patient now on 21 day hold. 6. Will try to get hospital records to see where this concept of Wernicke's comes from given a very vague history of alcohol use. Appreciate medical consult. PDMP PDMP Reviewed: Not Reviewed Involuntary Hold Information Hold Status: Legal Status: 21 Day Hold Date/Time Hold Expires: 04/17/2025 Attestations NPU Medical Necessity Statement*: Inpatient hospitalization is medically necessary and the clinically appropriate intervention at this time. We will monitor medications and make changes as indicated. The patient's likely length of stay is 7-10 days. Coding Level of Care Code Acute Code for [facility] Fwd Diagnoses Bipolar disorder F31.9 Manic behavior F30.10 Alcohol use disorder F10.90 Hx of Wernicke's encephalopathy Z86.39 Psychosis F29 Cannabis use disorder F12.90
[2025-04-03] MEDS: quetiapine XR (24HR) 50 mg Tablet 100 MG PO (17:37)
[2025-04-03] MEDS: quetiapine XR (24HR) 300 mg Tablet PO (17:38)
[2025-04-03 19:57] VITALS: BP 107/64; PULSE 71; RESP 18; O2SAT 97
[2025-04-04 06:00] VITALS: BP 114/82; PULSE 79; RESP 18; TEMP 36.3; O2SAT 93
[2025-04-04] MEDS: divalproex ER 500 mg Tablet (24H) 1000 MG PO (08:32)
[2025-04-04] MEDS: NADOLOL 40 MG 40 EACH PO (09:50)
--- NOTE | 2025-04-04 11:32 | W.PM.NPUPNS ---
Subjective NPU Subjective: Patient presented today reporting that he is feeling decent. He continued to have mumbled speech per staff reports and direct observation but seeming to be better at communicating. Reportedly by staff he is getting more sleep at this time. We discussed the risks,benefits and alternatives of getting a Neurologist consult and he understood and agreed to proceed as is documented in this note. We discussed hoping he had continued improvement so that we can discharge prior to needing to extend his hold. He denied any side effects of the medication. Mental Status Exam MSE Comments: This is a well-nourished well-developed white male in hospital scrubs with adequate grooming and fair eye contact with some tattoos on both arms. There was continued psychomotor activation. He continued to show evidence of poor boundaries. There was no abnormal involuntary motor movements appreciated today except for some limited shuffling. He was cooperative with exam in mild to moderate distress. Speech remained pressured with diminished volume, muffled and dysarthria appreciated with significant mumbling. Mood described as better His affect was restricted. Thought process was linear thought content: Patient denied suicidal or homicidal ideation. There were no delusions reported but significant magical thinking and bizarre thinking, he did not report auditory or visual hallucinations. Attention and concentration were limited and his recent and remote memory appeared impaired. He is alert and oriented to person, place. Insight and judgment are impaired. Impulse control is impaired. Vitals/I&O/Wt Last Vital Signs Temp 97.4 F L 04/04/25 06:00 Pulse 79 04/04/25 06:00 Resp 18 04/04/25 06:00 BP 114/82 04/04/25 06:00 Pulse Ox 93 04/04/25 06:00 O2 Del Method Room Air 04/04/25 06:00 O2 Flow Rate 96 03/20/25 03:21 Data NPU 04/02/25 15:04 03/24/25 17:50 A&P Assessment and plan 1. Bipolar disorder: 2. Manic behavior: 3. Alcohol use disorder: 4. Hx of Wernicke's encephalopathy: 5. Psychosis: 6. Cannabis use disorder: Plan: This is a 44-year-old white male with a reported long history of bipolar disorder but recent history of concern for Wernicke syndrome with recent hospitalization in [facility] which ended with him being put on fluphenazine with little to no impact. Reports of allergies to Haldol and Risperdal and not doing well with lithium either. Discussed Abilify with family versus Invega but given Risperdal allergy or at least problems with Risperdal we will avoid Invega at this time. Complicating the matter is this vague alcohol use and reports of Warnicke's as well as issues related to his cannabis use and the possibility of cannabis being at the heart of his psychosis. 1. Klonopin 2mg at night, continue seroquel xr to 400mg at 6PM with plan to increase to Seroquel XR 500mg while eventually decreasing Abilify to 15mg in 1-2 days. Continue abilify to 20mg daily. Continue depakote 1000mg er in am. Check LFT, AST/ALT, CBC with diff wnl. 2. Encourage individual, group and milieu therapy. 3. Continue every 15 minute checks for safety. 4. Encourage sober living treatment after discharge at the highest level of care to which she is willing to commit. 5. Patient now on 21 day hold. 6. Will try to get hospital records to see where this concept of Wernicke's comes from given a very vague history of alcohol use. Appreciate medical consult. 7. Initiated Neurology consult. They requested records from [facility] in [place] to explore the question of Warnicke's. PDMP PDMP Reviewed: Not Reviewed Involuntary Hold Information Hold Status: Legal Status: 21 Day Hold Date/Time Hold Expires: 04/17/2025 Attestations NPU Medical Necessity Statement*: Inpatient hospitalization is medically necessary and the clinically appropriate intervention at this time. We will monitor medications and make changes as indicated. The patient's likely length of stay is 7-10 days. Coding Level of Care Code Acute Code for [facility] Fwd Diagnoses Bipolar disorder F31.9 Manic behavior F30.10 Alcohol use disorder F10.90 Hx of Wernicke's encephalopathy Z86.39 Psychosis F29 Cannabis use disorder F12.90
[2025-04-04 14:00] VITALS: BP 120/83; PULSE 81; RESP 18; TEMP 36.6; O2SAT 97
[2025-04-04] MEDS: cetylpyridinium Lozenge 1 EACH MUCOUS MEM (15:08)
[2025-04-04] MEDS: HYDROcodone-acetaminophen 5-325 mg Tablet 1 TAB PO (15:36)
[2025-04-04] MEDS: quetiapine XR (24HR) 300 mg Tablet PO (17:34)
[2025-04-04] MEDS: quetiapine XR (24HR) 50 mg Tablet 100 MG PO (17:44)
[2025-04-04 20:10] VITALS: BP 129/86; PULSE 70; RESP 19; TEMP 37.1; O2SAT 100
[2025-04-05 06:00] VITALS: BP 129/90; PULSE 98; RESP 17; TEMP 36.6; O2SAT 97
--- NOTE | 2025-04-05 07:24 | W.PM.NPUPNS ---
Subjective NPU Subjective: Patient presented today reporting that he is looking forward to being the night of his family. He continues to be fairly aimless and his speech and say things that are just seeming like stream of consciousness. He is finally being able to sleep per staff reports and this increase in sleep seems to be contributing to him being less aimless. We discussed him signing some paperwork so that we can get his records today so that is available for us in the consult to determine where the Warnicke's piece come from whether that is from a MRI or what. He denied any side effects of medication. Mental Status Exam MSE Comments: This is a well-nourished well-developed white male in hospital scrubs with adequate grooming and fair eye contact with some tattoos on both arms. There was continued psychomotor activation. He continued to show evidence of poor boundaries. There was no abnormal involuntary motor movements appreciated today except for some limited shuffling. He was cooperative with exam in mild to moderate distress. Speech is less pressured with diminished volume, muffled and dysarthria appreciated with significant mumbling. Mood described as better His affect was restricted. Thought process was linear thought content: Patient denied suicidal or homicidal ideation. There were no delusions reported but significant magical thinking and bizarre thinking, he did not report auditory or visual hallucinations. Attention and concentration were limited and his recent and remote memory appeared impaired. He is alert and oriented to person, place. Insight and judgment are impaired. Impulse control is impaired. Vitals/I&O/Wt Last Vital Signs Temp 97.8 F 04/05/25 06:00 Pulse 98 04/05/25 06:00 Resp 17 04/05/25 06:00 BP 129/90 04/05/25 06:00 Pulse Ox 97 04/05/25 06:00 O2 Del Method Room Air 04/05/25 06:00 O2 Flow Rate 96 03/20/25 03:21 Data NPU 04/02/25 15:04 03/24/25 17:50 A&P Assessment and plan 1. Bipolar disorder: 2. Manic behavior: 3. Alcohol use disorder: 4. Hx of Wernicke's encephalopathy: 5. Psychosis: 6. Cannabis use disorder: Plan: This is a 44-year-old white male with a reported long history of bipolar disorder but recent history of concern for Wernicke syndrome with recent hospitalization in [facility] which ended with him being put on fluphenazine with little to no impact. Reports of allergies to Haldol and Risperdal and not doing well with lithium either. Discussed Abilify with family versus Invega but given Risperdal allergy or at least problems with Risperdal we will avoid Invega at this time. Complicating the matter is this vague alcohol use and reports of Warnicke's as well as issues related to his cannabis use and the possibility of cannabis being at the heart of his psychosis. 1. Klonopin 2mg at night, continue seroquel xr to 400mg at 6PM with plan to increase to Seroquel XR 500mg while eventually decreasing Abilify to 15mg in 1-2 days. Continue abilify to 20mg daily. Continue depakote 1000mg er in am. Check LFT, AST/ALT, CBC with diff wnl. 2. Encourage individual, group and milieu therapy. 3. Continue every 15 minute checks for safety. 4. Encourage sober living treatment after discharge at the highest level of care to which she is willing to commit. 5. Patient now on 21 day hold. 6. Will try to get hospital records to see where this concept of Wernicke's comes from given a very vague history of alcohol use. Appreciate medical consult. 7. Initiated Neurology consult. They requested records from [facility] in [place] to explore the question of Warnicke's. 8. For the second anaerobe we have been on the phone for considerable time trying to get medical records to finally send us the records from his stay for about 2 or 3 weeks starting in February of last month where he was diagnosed with Warnicke's. Will do everything in our power to make sure that these records are here for the consult. PDMP PDMP Reviewed: Not Reviewed Involuntary Hold Information Hold Status: Legal Status: 21 Day Hold Date/Time Hold Expires: 04/17/2025 Attestations NPU Medical Necessity Statement*: Inpatient hospitalization is medically necessary and the clinically appropriate intervention at this time. We will monitor medications and make changes as indicated. The patient's likely length of stay is 7-10 days. Coding Level of Care Code Acute Code for [facility] Fwd Diagnoses Bipolar disorder F31.9 Manic behavior F30.10 Alcohol use disorder F10.90 Hx of Wernicke's encephalopathy Z86.39 Psychosis F29 Cannabis use disorder F12.90
[2025-04-05] MEDS: divalproex ER 500 mg Tablet (24H) 1000 MG PO (08:32)
[2025-04-05] MEDS: NADOLOL 40 MG 40 EACH PO (09:02)
[2025-04-05] MEDS: HYDROcodone-acetaminophen 5-325 mg Tablet 1 TAB PO ×2 (12:56→19:57)
[2025-04-05 14:00] VITALS: BP 116/75; PULSE 68; RESP 16; TEMP 36.8; O2SAT 99
[2025-04-05] MEDS: quetiapine XR (24HR) 300 mg Tablet PO (17:42)
[2025-04-05] MEDS: quetiapine XR (24HR) 50 mg Tablet 100 MG PO (17:43)
[2025-04-05 20:20] VITALS: BP 111/75; PULSE 80; RESP 19; O2SAT 98
--- NOTE | 2025-04-06 06:28 | PC.NURSE ---
vs not completed per charge nurse, resp 17
[2025-04-06] MEDS: NADOLOL 40 MG 40 EACH PO (08:14)
[2025-04-06] MEDS: divalproex ER 500 mg Tablet (24H) 1000 MG PO (08:16)
[2025-04-06] MEDS: HYDROcodone-acetaminophen 5-325 mg Tablet 1 TAB PO (11:14)
--- NOTE | 2025-04-06 13:27 | P.NPUPN_ITS ---
Subjective NPU 2 Subjective: Patient presented today reporting that things are going okay. He continues to demonstrate a greater sense of insight and understanding but also has moments still where he will just mumble random stuff per staff reports and direct observation. He denies any side effects of his medication reporting that they are working well. And staff report the psychomotor agitation that plagued him in the beginning as diminished versus resolved which is also noted and direct observation. Mental Status Exam 2 MSE Comments: This is a well-nourished well-developed white male in hospital scrubs with adequate grooming and fair eye contact with some tattoos on both arms. There was continued psychomotor activation. He continued to show evidence of poor boundaries but improving in that regard. There was no abnormal involuntary motor movements appreciated today except for some limited shuffling. He was cooperative with exam in mild distress. Speech is less pressured with diminished volume, muffled and dysarthria appreciated with significant mumbling. Mood described as better His affect was restricted. Thought process was linear thought content: Patient denied suicidal or homicidal ideation. There were no delusions reported but significant magical thinking and bizarre thinking, he did not report auditory or visual hallucinations. Attention and concentration were limited and his recent and remote memory appeared impaired. He is alert and oriented to person, place. Insight and judgment are impaired. Impulse control is impaired. Vitals/I&O/Wt Last Vital Signs Temp 98.3 F 04/05/25 14:00 Pulse 80 04/05/25 20:20 Resp 19 H 04/05/25 20:20 BP 111/75 04/05/25 20:20 Pulse Ox 98 04/05/25 20:20 O2 Del Method Room Air 04/05/25 20:20 O2 Flow Rate 96 03/20/25 03:21 Data NPU 04/02/25 15:04 03/24/25 17:50 A&P Assessment and plan 1. Bipolar disorder: 2. Manic behavior: 3. Alcohol use disorder: 4. Hx of Wernicke's encephalopathy: 5. Psychosis: 6. Cannabis use disorder: Plan: This is a 44-year-old white male with a reported long history of bipolar disorder but recent history of concern for Wernicke syndrome with recent hospitalization in [facility] which ended with him being put on fluphenazine with little to no impact. Reports of allergies to Haldol and Risperdal and not doing well with lithium either. Discussed Abilify with family versus Invega but given Risperdal allergy or at least problems with Risperdal we will avoid Invega at this time. Complicating the matter is this vague alcohol use and reports of Warnicke's as well as issues related to his cannabis use and the possibility of cannabis being at the heart of his psychosis. 1. Klonopin 2mg at night, continue seroquel xr to 400mg at 6PM with plan to increase to Seroquel XR 500mg while eventually decreasing Abilify to 15mg in 1-2 days. Continue abilify to 20mg daily. Continue depakote 1000mg er in am. Check LFT, AST/ALT, CBC with diff wnl. 2. Encourage individual, group and milieu therapy. 3. Continue every 15 minute checks for safety. 4. Encourage sober living treatment after discharge at the highest level of care to which she is willing to commit. 5. Patient now on 21 day hold. 6. Will try to get hospital records to see where this concept of Wernicke's comes from given a very vague history of alcohol use. Appreciate medical consult. 7. Initiated Neurology consult. They requested records from [facility] system in [place] to explore the question of Warnicke's. 8. For the second anaerobe we have been on the phone for considerable time trying to get medical records to finally send us the records from his stay for about 2 or 3 weeks starting in February of last month where he was diagnosed with Warnicke's. Will do everything in our power to make sure that these records are here for the consult. Received his medical records including MRI results which were unremarkable. PDMP PDMP Reviewed: Not Reviewed Involuntary Hold Information 2 Hold Status: Legal Status: 21 Day Hold Date/Time Hold Expires: 04/17/2025 Attestations NPU 2 Medical Necessity Statement*: Inpatient hospitalization is medically necessary and the clinically appropriate intervention at this time. We will monitor medications and make changes as indicated. The patient's likely length of stay is 7-10 days. Coding Level of Care Code Acute Code for [facility] Fwd Diagnoses Bipolar disorder F31.9 Manic behavior F30.10 Alcohol use disorder F10.90 Hx of Wernicke's encephalopathy Z86.39 Psychosis F29 Cannabis use disorder F12.90
[2025-04-06 14:00] VITALS: BP 125/85; PULSE 78; RESP 18; TEMP 36.6; O2SAT 98
[2025-04-06] MEDS: quetiapine XR (24HR) 300 mg Tablet PO (18:10)
[2025-04-06] MEDS: quetiapine XR (24HR) 50 mg Tablet 100 MG PO (18:12)
[2025-04-06 20:17] VITALS: BP 101/73; PULSE 91; RESP 18; TEMP 36.4; O2SAT 96
[2025-04-07 06:00] VITALS: BP 103/85; PULSE 73; RESP 18; O2SAT 98; BMI 23.6
[2025-04-07] MEDS: divalproex ER 500 mg Tablet (24H) 1000 MG PO (08:19)
[2025-04-07] MEDS: NADOLOL 40 MG 40 EACH PO (08:20)
--- NOTE | 2025-04-07 08:39 | P.NPUPN_ITS ---
Subjective NPU 2 Subjective: Patient presented today reporting that he is looking forward to being out of here. We discussed that his psychomotor activation seems to be diminished and his aimless behavior as dissipated but he continues to have times where he will make random soliloquy's about things that do not seem to make sense. Otherwise he continues to mumble which was apparently not the case prior to this hospitalization at [facility] that started on March 01. We discussed having those records and the likelihood of a neurology consult today. He denied any side effects of the medication and has not needed as needed medication as he had when this stay for started. Mental Status Exam 2 MSE Comments: This is a well-nourished well-developed white male in hospital scrubs with adequate grooming and fair eye contact with some tattoos on both arms. There was continued psychomotor activation. He continued to show evidence of poor boundaries but improving in that regard. There was no abnormal involuntary motor movements appreciated today except for some limited shuffling. He was cooperative with exam in mild distress. Speech is less pressured with diminished volume, muffled and dysarthria appreciated with significant mumbling. Mood described as better His affect was restricted. Thought process was linear thought content: Patient denied suicidal or homicidal ideation. There were no delusions reported but significant magical thinking and bizarre thinking, he did not report auditory or visual hallucinations. Attention and concentration were limited and his recent and remote memory appeared impaired. He is alert and oriented to person, place. Insight and judgment are impaired. Impulse control is impaired. Vitals/I&O/Wt Last Vital Signs Temp 97.5 F L 04/06/25 20:17 Pulse 73 04/07/25 06:00 Resp 18 04/07/25 06:00 BP 103/85 04/07/25 06:00 Pulse Ox 98 04/07/25 06:00 O2 Del Method Room Air 04/07/25 06:00 O2 Flow Rate 96 03/20/25 03:21 Weight last 48 hrs Weight 83.574 kg Data NPU 04/02/25 15:04 03/24/25 17:50 A&P Assessment and plan 1. Bipolar disorder: 2. Manic behavior: 3. Alcohol use disorder: 4. Hx of Wernicke's encephalopathy: 5. Psychosis: 6. Cannabis use disorder: Plan: This is a 44-year-old white male with a reported long history of bipolar disorder but recent history of concern for Wernicke syndrome with recent hospitalization in [facility] which ended with him being put on fluphenazine with little to no impact. Reports of allergies to Haldol and Risperdal and not doing well with lithium either. Discussed Abilify with family versus Invega but given Risperdal allergy or at least problems with Risperdal we will avoid Invega at this time. Complicating the matter is this vague alcohol use and reports of Warnicke's as well as issues related to his cannabis use and the possibility of cannabis being at the heart of his psychosis. 1. Klonopin 2mg at night, continue seroquel xr to 400mg at 6PM with plan to increase to Seroquel XR 500mg while eventually decreasing Abilify to 15mg in 1-2 days. Continue abilify to 20mg daily. Continue depakote 1000mg er in am. Check LFT, AST/ALT, CBC with diff wnl. 2. Encourage individual, group and milieu therapy. 3. Continue every 15 minute checks for safety. 4. Encourage sober living treatment after discharge at the highest level of care to which she is willing to commit. 5. Patient now on 21 day hold. 6. Will try to get hospital records to see where this concept of Wernicke's comes from given a very vague history of alcohol use. Appreciate medical consult. 7. Initiated Neurology consult. They requested records from [facility] in [place] to explore the question of Warnicke's. 8. For the second anaerobe we have been on the phone for considerable time trying to get medical records to finally send us the records from his stay for about 2 or 3 weeks starting in February of last month where he was diagnosed with Warnicke's. Will do everything in our power to make sure that these records are here for the consult. Received his medical records including MRI results which were unremarkable. Look forward to neurology consult likely today. PDMP PDMP Reviewed: Not Reviewed Involuntary Hold Information 2 Hold Status: Legal Status: 21 Day Hold Date/Time Hold Expires: 04/17/2025 Attestations NPU 2 Medical Necessity Statement*: Inpatient hospitalization is medically necessary and the clinically appropriate intervention at this time. We will monitor medications and make changes as indicated. The patient's likely length of stay is 6-9 days. Coding Level of Care Code Acute Code for [facility] Fwd Diagnoses Bipolar disorder F31.9 Manic behavior F30.10 Alcohol use disorder F10.90 Hx of Wernicke's encephalopathy Z86.39 Psychosis F29 Cannabis use disorder F12.90
[2025-04-07 14:00] VITALS: BP 127/83; PULSE 105; RESP 17; O2SAT 94
[2025-04-07] MEDS: quetiapine XR (24HR) 50 mg Tablet 100 MG PO (16:43)
[2025-04-07] MEDS: quetiapine XR (24HR) 300 mg Tablet PO (16:43)
[2025-04-07] MEDS: HYDROcodone-acetaminophen 5-325 mg Tablet 1 TAB PO (20:01)
[2025-04-07 22:00] VITALS: BP 119/72; PULSE 83; RESP 18; O2SAT 100
--- NOTE | 2025-04-07 22:15 | PC.NURSE ---
pt rounding pt was found on the floor in front of a plug in in his room with an ear plug in his hand. redirected back to bed.
[2025-04-08 06:00] VITALS: BP 112/85; PULSE 76; RESP 18; TEMP 36.4; O2SAT 98
[2025-04-08] MEDS: NADOLOL 40 MG 40 EACH PO (07:51)
[2025-04-08] MEDS: divalproex ER 500 mg Tablet (24H) 1000 MG PO (07:52)
[2025-04-08] MEDS: HYDROcodone-acetaminophen 5-325 mg Tablet 1 TAB PO ×2 (12:48→21:27)
[2025-04-08 14:00] VITALS: BP 123/83; PULSE 76; RESP 16; TEMP 36.6; O2SAT 100
[2025-04-08] MEDS: quetiapine XR (24HR) 50 mg Tablet 100 MG PO (16:55)
[2025-04-08] MEDS: quetiapine XR (24HR) 300 mg Tablet PO (16:55)
--- NOTE | 2025-04-08 18:28 | W.PM.NPUPNS ---
Subjective NPU Subjective: Patient presented today reporting that things are unchanged. He continues to focus on a desire to discharge as soon as possible. We discussed that we would fill better about the prospect of discharge once we had a sense of whether neurology felt there was anything acute to manage. He reported he would be able to wait for their consult. He denied any side effects to medication. Mental Status Exam MSE Comments: This is a well-nourished well-developed white male in hospital scrubs with adequate grooming and fair eye contact with some tattoos on both arms. There was continued psychomotor activation. He continued to show evidence of poor boundaries but improving in that regard. There was no abnormal involuntary motor movements appreciated today except for some limited shuffling. He was cooperative with exam in mild distress. Speech is less pressured with diminished volume, muffled and dysarthria appreciated with significant mumbling. Mood described as better His affect was restricted. Thought process was linear thought content: Patient denied suicidal or homicidal ideation. There were no delusions reported but significant magical thinking and bizarre thinking, he did not report auditory or visual hallucinations. Attention and concentration were limited and his recent and remote memory appeared impaired. He is alert and oriented to person, place. Insight and judgment are impaired. Impulse control is impaired. Vitals/I&O/Wt Last Vital Signs Temp 97.9 F 04/08/25 14:00 Pulse 76 04/08/25 14:00 Resp 16 04/08/25 14:00 BP 123/83 04/08/25 14:00 Pulse Ox 100 04/08/25 14:00 O2 Del Method Room Air 04/08/25 06:00 O2 Flow Rate 96 03/20/25 03:21 Weight last 48 hrs Weight 83.574 kg Data NPU 04/02/25 15:04 03/24/25 17:50 A&P Assessment and plan 1. Encephalopathy acute: 2. Bipolar disorder: 3. Alcohol use disorder: 4. Lumbar stenosis with neurogenic claudication: 5. Manic behavior: 6. Hx of Wernicke's encephalopathy: 7. Psychosis: 8. Cannabis use disorder: Plan: This is a 44-year-old white male with a reported long history of bipolar disorder but recent history of concern for Wernicke syndrome with recent hospitalization in [facility] which ended with him being put on fluphenazine with little to no impact. Reports of allergies to Haldol and Risperdal and not doing well with lithium either. Discussed Abilify with family versus Invega but given Risperdal allergy or at least problems with Risperdal we will avoid Invega at this time. Complicating the matter is this vague alcohol use and reports of Warnicke's as well as issues related to his cannabis use and the possibility of cannabis being at the heart of his psychosis. 1. Klonopin 2mg at night, continue seroquel xr to 400mg at 6PM with plan to increase to Seroquel XR 500mg while eventually decreasing Abilify to 15mg in 1-2 days. Continue abilify to 20mg daily. Continue depakote 1000mg er in am. Check LFT, AST/ALT, CBC with diff wnl. 2. Encourage individual, group and milieu therapy. 3. Continue every 15 minute checks for safety. 4. Encourage sober living treatment after discharge at the highest level of care to which she is willing to commit. 5. Patient now on 21 day hold. 6. Will try to get hospital records to see where this concept of Wernicke's comes from given a very vague history of alcohol use. Appreciate medical consult. 7. Initiated Neurology consult. They requested records from [employer] system in [place] to explore the question of Warnicke's. 8. For the second anaerobe we have been on the phone for considerable time trying to get medical records to finally send us the records from his stay for about 2 or 3 weeks starting in February of last month where he was diagnosed with Warnicke's. Will do everything in our power to make sure that these records are here for the consult. Received his medical records including MRI results which were unremarkable. Look forward to neurology consult likely today. PDMP PDMP Reviewed: Not Reviewed Involuntary Hold Information Hold Status: Legal Status: 21 Day Hold Date/Time Hold Expires: 04/17/2025 Attestations NPU Medical Necessity Statement*: Inpatient hospitalization is medically necessary and the clinically appropriate intervention at this time. We will monitor medications and make changes as indicated. The patient's likely length of stay is 5-8 days. Coding Level of Care Code Acute Code for Chg Fwd Diagnoses Encephalopathy acute G93.40 Bipolar disorder F31.9 Alcohol use disorder F10.90 Lumbar stenosis with neurogenic claudication M48.062 Manic behavior F30.10 Hx of Wernicke's encephalopathy Z86.39 Psychosis F29 Cannabis use disorder F12.90
[2025-04-08 19:36] VITALS: BP 119/87; PULSE 76; RESP 18; O2SAT 98
[2025-04-09 06:00] VITALS: BP 91/59; PULSE 62; RESP 18; TEMP 36.4; O2SAT 98
[2025-04-09] MEDS: divalproex ER 500 mg Tablet (24H) 1000 MG PO (07:16)
[2025-04-09] MEDS: NADOLOL 40 MG 40 EACH PO (07:17)
[2025-04-09] MEDS: artificial tears Op Soln 15 mL Btl 1 DROP EYE-BOTH (07:22)
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
[2025-04-09 14:00] VITALS: BP 114/83; PULSE 98; RESP 18; TEMP 36.4; O2SAT 98
[2025-04-09] MEDS: quetiapine XR (24HR) 50 mg Tablet 100 MG PO (17:00)
[2025-04-09] MEDS: quetiapine XR (24HR) 300 mg Tablet PO (17:00)
--- NOTE | 2025-04-09 17:51 | W.PM.NPUPNS ---
Subjective NPU Subjective: Patient presented today reporting that he is doing okay. He was hoping for discharge today but given all things considered to make sure that there is a reasonable safety plan we discussed the likelihood that discharged tomorrow would be more likely. He continued to discussed the concerns that his passed that he is just going to wander off when he gets home and we discussed the possibility of getting a THOMAS examination today prior to her getting him after work. She is going to take a few days off we discussed to ensure that he is going to manage himself at home in a safe way and not just go off meandering. He denied any side effects of the medication and is excited about the prospect of discharge tomorrow. We discussed the results of the examination thus far identifying the concerns that this journalists and other writers had that he has some kind of encephalopathy which speaks to his change in speech and gait at times but is unclear that this would be identified as Warnicke's given his lack of difficulty with certain aspects of memory. Mental Status Exam MSE Comments: This is a well-nourished well-developed white male in hospital scrubs with adequate grooming and fair eye contact with some tattoos on both arms. There was continued psychomotor activation. He continued to show evidence of poor boundaries but improving in that regard. There was no abnormal involuntary motor movements appreciated today except for some limited shuffling. He was cooperative with exam in mild distress. Speech is less pressured with diminished volume, muffled and dysarthria appreciated with significant mumbling. Mood described as better His affect was restricted. Thought process was linear thought content: Patient denied suicidal or homicidal ideation. There were no delusions reported but significant magical thinking and bizarre thinking, he did not report auditory or visual hallucinations. Attention and concentration were limited and his recent and remote memory appeared impaired. He is alert and oriented to person, place. Insight and judgment are impaired. Impulse control is impaired. Vitals/I&O/Wt Last Vital Signs Temp 97.8 F 04/09/25 19:34 Pulse 74 04/09/25 19:34 Resp 18 04/09/25 19:34 BP 124/85 04/09/25 19:34 Pulse Ox 96 04/09/25 19:34 O2 Del Method Room Air 04/09/25 19:34 O2 Flow Rate 96 03/20/25 03:21 Data NPU 04/02/25 15:04 03/24/25 17:50 A&P Assessment and plan 1. Encephalopathy acute: 2. Bipolar disorder: 3. Alcohol use disorder: 4. Lumbar stenosis with neurogenic claudication: 5. Manic behavior: 6. Hx of Wernicke's encephalopathy: 7. Psychosis: 8. Cannabis use disorder: Plan: This is a 44-year-old white male with a reported long history of bipolar disorder but recent history of concern for Wernicke syndrome with recent hospitalization in [facility] which ended with him being put on fluphenazine with little to no impact. Reports of allergies to Haldol and Risperdal and not doing well with lithium either. Discussed Abilify with family versus Invega but given Risperdal allergy or at least problems with Risperdal we will avoid Invega at this time. Complicating the matter is this vague alcohol use and reports of Warnicke's as well as issues related to his cannabis use and the possibility of cannabis being at the heart of his psychosis. 1. Klonopin 2mg at night, continue seroquel xr to 400mg at 6PM with plan to increase to Seroquel XR 500mg while eventually decreasing Abilify to 15mg in 1-2 days. Continue abilify to 20mg daily. Continue depakote 1000mg er in am. Check LFT, AST/ALT, CBC with diff wnl. 2. Encourage individual, group and milieu therapy. 3. Continue every 15 minute checks for safety. 4. Encourage sober living treatment after discharge at the highest level of care to which she is willing to commit. 5. Patient now on 21 day hold. 6. Will try to get hospital records to see where this concept of Wernicke's comes from given a very vague history of alcohol use. Appreciate medical consult. 7. Initiated Neurology consult. They requested records from [employer] system in [place] to explore the question of Warnicke's. 8. For the second anaerobe we have been on the phone for considerable time trying to get medical records to finally send us the records from his stay for about 2 or 3 weeks starting in February of last month where he was diagnosed with Warnicke's. Will do everything in our power to make sure that these records are here for the consult. Received his medical records including MRI results which were unremarkable. Look forward to neurology consult likely today. Was able to discuss a plan with neurology. It is agreed that some type of encephalopathy exists but the source is unknown. They will continue to follow. We discussed with the the fact that there is nothing much more that we can do and that neurology's investigation is his best bet to improvement. Tentative plan for discharge tomorrow given time to take time off for the rest of the week to see how he responds to being at home. May get a THOMAS examination prior to discharge. PDMP PDMP Reviewed: Not Reviewed Involuntary Hold Information Hold Status: Legal Status: 21 Day Hold Date/Time Hold Expires: 04/17/2025 Attestations NPU Medical Necessity Statement*: Inpatient hospitalization is medically necessary and the clinically appropriate intervention at this time. We will monitor medications and make changes as indicated. The patient's likely length of stay is 1-3 days. Coding Level of Care Code Acute Code for Chg Fwd Diagnoses Encephalopathy acute G93.40 Bipolar disorder F31.9 Alcohol use disorder F10.90 Lumbar stenosis with neurogenic claudication M48.062 Manic behavior F30.10 Hx of Wernicke's encephalopathy Z86.39 Psychosis F29 Cannabis use disorder F12.90
[2025-04-09 19:34] VITALS: BP 124/85; PULSE 74; RESP 18; TEMP 36.6; O2SAT 96
--- NOTE | 2025-04-09 19:40 | XRR_ITS ---
PROCEDURE INFORMATION: Exam: XR Abdomen Exam date and time: 04/09/2025 8:07 PM Age: 44 years old Clinical indication: Constipation TECHNIQUE: Imaging protocol: Radiologic exam of the abdomen. Views: Frontal supine view of the abdomen. 1 View. COMPARISON: MR lumbar spine wo con* [id number] 01/15/2025 8:06 AM FINDINGS: Gastrointestinal tract: Moderate to severe constipation without bowel dilation to indicate obstruction. Bones/joints: Unremarkable. XR/XR KUB portable [id number] IMPRESSION: Moderate to severe constipation without bowel dilation to indicate obstruction.
[2025-04-09] MEDS: phenyleph-mineral oil-petrolat Oint 28 gm 1 APPLIC PR (20:48)
[2025-04-09] MEDS: HYDROcodone-acetaminophen 5-325 mg Tablet 1 TAB PO (20:49)
[2025-04-10 06:00] VITALS: BP 104/75; PULSE 80; RESP 18; O2SAT 96
--- NOTE | 2025-04-10 07:26 | PC.NURSE ---
Pt received MOM at approx [address] Mcghee okayed a one time order of MOM again so we could make the pt a brown cow
[2025-04-10] MEDS: divalproex ER 500 mg Tablet (24H) 1000 MG PO (08:36)
[2025-04-10] MEDS: NADOLOL 40 MG 40 EACH PO (09:33)
[2025-04-10] MEDS: HYDROcodone-acetaminophen 5-325 mg Tablet 1 TAB PO (13:28)
[2025-04-10 14:00] VITALS: BP 128/85; PULSE 79; RESP 18; TEMP 36.3; O2SAT 96
--- NOTE | 2025-04-10 14:50 | PC.NURSE ---
Dr. Mcghee wanted a THOMAS done before pt d/c
[2025-04-10] MEDS: quetiapine XR (24HR) 50 mg Tablet 100 MG PO (17:25)
[2025-04-10] MEDS: quetiapine XR (24HR) 300 mg Tablet PO (17:26)
[2025-04-10 17:50] VITALS: BP 128/85; PULSE 79; RESP 18; TEMP 36.3; O2SAT 96
== END 2025-04-10 18:42 | disposition home or self-care (01) | DRG 885 ==
LOC: ER 06:57 → NP 07:45
PROVIDERS: Family Medicine; Student in an Organized Health Care Education/Training Program; Admitting Provider Psychiatry & Neurology Psychiatry; Emergency Provider Family Medicine; Visit Provider Psychiatry & Neurology Psychiatry
DX: F31.9 Bipolar disorder, unspecified (principal); G93.40 Encephalopathy, unspecified; Z88.8 Allergy status to other drugs, medicaments and biological substances; F29 Unspecified psychosis not due to a substance or known physiological condition; I10 Essential (primary) hypertension; R60.0 Localized edema; F12.90 Cannabis use, unspecified, uncomplicated; F10.21 Alcohol dependence, in remission
CPT/HCPCS: 36415; 74018; 80053; 80076; 80164; 80306; 80307; 81001; 82140; 83880; 84439; 84443; 84484; 85007; 85025; 85027; 86140; 93005; 93970; 96372; 97150; 97165; 97167; 99285; J1200; J2060; J3486; J3490; J9999

== ENCOUNTER 2025-04-23 12:01 | Inpatient (IN) | payer BC, MEDICAID, SELFPAY ==
[2025-04-23 12:05] VITALS: PULSE 79; RESP 18; TEMP 36.8; O2SAT 100; BMI 25.7
--- NOTE | 2025-04-23 12:05 | ED.C_ITS ---
HPI - Psych 2 General: Chief Complaint: Psychiatric Symptoms Stated Complaint: si/hi Time Seen by Provider: 04/23/25 12:04 Source: patient Mode of arrival: other (police) Limitations: no limitations History of Present Illness: Patient is a 44-year-old male who presents to the ED today on a 96-hour hold from the crisis stabilization center. According to hold paperwork patient has not slept in over 48 hours. Paperwork states that he has been exhibiting odd behaviors such as walking outside and covering random items inside the house with electrical tape. Hold paperwork states that he has had disorganized thoughts and speech, decreased attention span, agitation, and difficulty concentrating. They felt patient was of poor judgment and lacked insight posing a safety risk to himself. Hold paperwork states that he made statements that he would kill himself if he had to go back to the hospital. He tells me he was recently admitted to [facility] several weeks ago. Hold paperwork states that he is difficult to keep on topic. MD complaint: other (involuntary commitment ) History of same: Yes Relieving factors: none Exacerbating factors: none Associated symptoms: Reports no associated symptoms; Deny auditory hallucinations, visual hallucinations, depression, homicidal ideation or suicidal ideation Treatments prior to arrival: placed on mental health hold Related Data Home Medications ?Medication ?Instructions ?Recorded ?Confirmed hydrocodone 5 mg-acetaminophen 325 1 tab PO Q6H PRN Pa in 12/20/24 04/17/25 mg tablet Previous Rx's ?Medication ?Instructions ?Recorded aripiprazole 15 mg tablet 15 mg PO DAILY 30 days #30 t abs 04/10/25 benztropine 1 mg tablet 1 mg PO BID 30 days #60 tabs 04/10/25 chlorthalidone 25 mg tablet 25 mg PO DAILY 30 days #30 tabs 04/10/25 clonazepam 1 mg tablet 2 mg (2 x 1 mg) PO BEDTIME 3 0 days 04/10/25 #30 tabs divalproex 500 mg tablet,extended 1,000 mg (2 x 500 mg ) PO 0800 30 04/10/25 release 24 hr days #60 tabs hydroxyzine pamoate 25 mg capsule 50 mg (2 x 25 mg) PO Q6H PRN 04/10/25 Anxiety 30 days #120 caps nadolol 40 mg tablet 40 mg PO DAILY 30 days #30 t abs 04/10/25 pantoprazole 40 mg tablet,delayed 40 mg PO DAILY 30 da ys #30 tabs 04/10/25 release quetiapine 400 mg tablet,extended 400 mg PO 1800 30 da ys #30 tabs 04/10/25 release 24 hr thiamine mononitrate (vit B1) 100 200 mg (2 x 100 mg) PO DAILY 30 04/10/25 mg tablet (Vitamin B-1 days #60 tabs (mononitrate)) trazodone 50 mg tablet 50 mg PO BEDTIME PRN Insomni a 30 04/10/25 days #30 tabs Allergies Allergy/AdvReac Type Severity Reaction Status Date / Time haloperidol (From Haldol) Allergy ADR-Seizure Verified 04/17/25 08:38 risperidone (From Risperdal) Allergy ALGY-Anaphy Verified 04/17/25 08:38 laxis Review of Systems 2 Const: Denies: fever(s) or chills Card: Denies: chest pain, palpitations, lightheadedness or syncope Resp: Denies: dyspnea GI: Denies: abdominal pain, nausea, vomiting or diarrhea Skin/Breast: Denies: rash Neuro: Denies: headache(s) Psych: Denies: anxiety, depression, visual hallucinations, auditory hallucinations, suicidal ideation or homicidal ideation PFS ED 2 PFSH: Medical History Psychiatric care Social History Smoking and tobacco/nicotine status: never used tobacco/nicotine Physical Exam 2 Const: COMMON NORMALS: no acute distress, average body habitus, patient oriented x3, no limitations, healthy appearing, alert and well nourished G ENERAL APPEARANCE: cooperative ORIENTATION/CONSCIOUSNESS: Yes awake, Yes oriented to person, Yes oriented to place and Yes oriented to time Resp: COMMON NORMALS: normal respiratory effort and clear to auscultation bilaterally AUSCULTATION: clear to auscultation bilaterally Cardio: COMMON NORMALS: regular rate and regular rhythm RATE: regular rate RHYTHM: regular rhythm Neuro: COMMON NORMALS: patient oriented x3, moves all extremities, no focal motor deficits, no sensory deficits noted and gait normal S ENSORIUM/ORIENTATION: Yes alert, Yes oriented to person, Yes oriented to place and Yes oriented to time Psych: COMMON NORMALS: mental status grossly normal, cooperative, normal affect, speech normal, activity/motor behavior normal, denies hallucinations, denies homicidal ideation and denies suicidal ideation APPEARANCE: Yes grossly normal ATTITUDE: Yes calm ACTIVITY/MOTOR BEHAVIOR: Yes appropriate eye contact and No psychomotor agitation SPEECH: Yes normal speech MOOD & AFFECT: Yes Other affect and mood findings present (mildly agitated as he does not want to be here) THOUGHT PROCESS: disorganized (mild) THOUGHT CONTENT: Yes Normal thought content present MEMORY/COGNITION: Yes memory grossly intact INSIGHT: Fair insight present (Psych) JUDGEMENT: Fair judgement present (Psych) Course 2 Vital Signs: Vital signs: Vital Signs Temperature 98.3 F 04/23/25 12:05 Pulse Rate 79 04/23/25 12:05 Respiratory Rate 18 04/23/25 12:05 Blood Pressure 136/90 04/23/25 12:33 Pulse Oximetry 100 04/23/25 12:05 Oxygen Delivery Me thod Room Air 04/23/25 12:05 MDM - Psych Medical Decision Making She will be an admit to [facility] to Dr. Nieves for psychiatric evaluation as he is on a 96-hour hold. Medical Records I reviewed the patient's medical records. Lab Data I reviewed the patient's lab results. 04/23/25 12:15 04/23/25 12:15 Laboratory Results WBC 8.10 10^3/uL (3.29-11.43) 04/23/25 12:15 RBC 4.74 10^6/uL (3.85-5.65) 04/23/25 12:15 Hgb 14.50 g/dL (11.27-16.99) 04/23/25 12:15 Hct 42.9 % (37-53) 04/23/25 12:15 MCV 90.5 fl (82-101) 04/23/25 12:15 MCH 30.6 pg (27-33) 04/23/25 12:15 MCHC 33.8 g/dL (30-55) 04/23/25 12:15 RDW 11.8 % (12.1-15.1) L 04/23/25 12:15 Plt Count 175 10^3/cmm (157-399) 04/23/25 12:15 MPV 10.3 fL (7.4-10.4) 04/23/25 12:15 Neut % (Auto) 60.3 % 04/23/25 12:15 Lymph % (Auto) 23.6 % 04/23/25 12:15 [place] % (Auto) 8.1 % 04/23/25 12:15 Eos % (Auto) 7.5 % 04/23/25 12:15 Baso % (Auto) 0.4 % 04/23/25 12:15 Neut # (Auto) 4.88 10^3/uL (1.8-7.7) 04/23/25 12:15 Lymph # (Auto) 1.9 10^3/uL (0.8-4.8) 04/23/25 12:15 [place] # (Auto) 0.7 10^3/uL (0.2-0.9) 04/23/25 12:15 Eos # (Auto) 0.6 10^3/uL (0.0-0.8) 04/23/25 12:15 Baso # (Auto) 0.0 10^3/uL (0.0-0.1) 04/23/25 12:15 Nucleated RBC % (auto) 0 % 04/23/25 12:15 Nucleated RBCs # 0.0 /100WBC 04/23/25 12:15 No radiology studies performed this visit Discharge Plan Discharge Patient Disposition: Admitted As Inpatient Clinical Impression: Involuntary commitment Condition: Stable Coding Level of Care Code ED Complaint Specialist for Lon Kirk
--- OUTSIDE RECORDS SUMMARY | 2025-04-23 12:08 | XMS_ITS | Encounter Summary ---
Author Organization [facility] Address [address] [place] [address] Care Team Providers Care Director Auto Name Role Phone Naya Navarro DO Primary Care Provider [phone] Reason for Visit * Reason Comments Medication Refill Encounter Details Date Type Department Care Team (Late st Contact Info) Description 04/16/2025 Refill [facility] Medicine [place] [address] [facility] [address] [place] [address] [place] [address] [place] [address] [address] [place] [address] Compression fracture of lumbar vertebra with routine healing, unspecified lumbar vertebral level, subsequent encounter Social History Tobacco Use Types Packs/Day Years Used Date Smoking Tobacco: Former Cigarettes Q uit: 10/23/2023 Smokeless Tobacco: Never Alcohol Use Standard Drinks/Week Comments Not Currently 3 (1 standard drink = 0.6 oz pur e alcohol) Sex and Gender Information Value Date Recorded Sex Assigned at Not on file Legal Sex 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 No showed last 2 appts. * Telephone Encounter - Jane Morrell LPN - 04/16/2025 10:35 AM CDT PROVIDER REVIEW NEEDED 10:36 AM 04/16/2025 Date of last visit addressing condition(s) being treated: 07/09/24- Dr. Mckeon Date of next visit in this department: 07/31/2025 Last refill: 02/05/25 Correct Pharmacy: Yes Recent Visits Date Type Provider Dept 01/18/25 Office Visit Nayla Smart FNP [facility] Family Medicine [place] Showing recent visits within past 400 days with a meds authorizing provider and meeting all other requirements Future Appointments Date Type Provider Dept 07/31/25 Appointment Naya Navarro DO [facility] Medicine [place] Showing future appointments within next 400 days with a meds authorizing provider and meeting all other requirements [facility] * Telephone Encounter - Naya Elias - 04/16/2025 9:18 AM CDT Copied from [facility] #[id number]. Topic: Medication Request >> Apr 16, 2025 9:16 AM Naya Toscano wrote: Caller Name: Kareem Dunaway Callback Number: [phone] (mobile) Medication (Ask patient/caregiver to spell if possible): HYDROcodone- acetaminophen (NORCO) 5-325 mgtablet Note: All medication prescriptions can be requested using one [facility] Preferred Pharmacy: [address] Call Notes: Patient needing refill Did caller contact the correct clinic for prescribing provider? Yes Ask caller if the refill is for a controlled medication. Is this for a controlled Medication? Yes Is there an encounter open? No documented in this encounter Plan of Treatment Upcoming Encounters Date Type Department Care Team (Bassam st Contact Info) Description 07/31/2025 10:40 AM SPOUTING INSTALLER Office Visit [facility] [place] [address] [facility] [place] [address] [place] [phone] [place] [address] [place] [address] [address] [phone] documented as of this encounter Visit Diagnoses Diagnosis Compression fracture of lumbar vertebra with routine healing, unspecified lumbar vertebral level, subsequent encounter documented in this encounter Care Teams Director Auto Relationship Specialty Start Date End Date Naya Navarro DO [address] [place] [phone] PCP - General Family Practice 04/16/25 documented as of this encounter
--- OUTSIDE RECORDS SUMMARY | 2025-04-23 12:08 | XMS_ITS | Encounter Summary ---
Author Organization [facility] Address [address] [place] [address] Care Team Providers Care K9 Handler Name Role Phone Naya Navarro DO Primary Care Provider [phone] Reason for Visit * Reason Comments Information Encounter Details Date Type Department Care Team (Late st Contact Info) Description 03/14/2025 Telephone [facility] Medicine [place] [address] [phone] Nayla Smart, [facility] [address] [place] [address] [address] [place] [address] Information Social History Tobacco Use Types Packs/Day Years Used Date Smoking Tobacco: Former Cigarettes Q uit: 10/23/2023 Smokeless Tobacco: Never Alcohol Use Standard Drinks/Week Comments Not Currently 3 (1 standard drink = 0.6 oz pur e alcohol) Sex and Gender Information Value Date Recorded Sex Assigned at Not on file 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 * Telephone Encounter - Estelita Jaramillo - 03/14/2025 11:15 AM CDT Copied from [facility] #[id number]. Topic: Established Patient Care >> Mar 14, 2025 11:12 AM Estelita Taylor wrote: Is the patient established with a [facility] provider? Yes, select appropriate option in Discharge Facility SmartList Caller Name: [facility] [employer] [employer] Callback Number: Telephone Information: Call Notes: Patient is being D/C from [facility] on 03/14. Soonest appt in office is 03/21. Please advise if he needs to be squeezed in sooner. Patient is Rising Risk Where was the patient discharged from? Hospital Is there availability to schedule the patient within 5 calendar days of discharge? No, in person appointment not available or call came after 5 days of discharge documented in this encounter Plan of Treatment Upcoming Encounters Date Type Department Care Team (Late st Contact Info) Description 07/31/2025 10:40 AM DOCUMENT REVIEW SPECIALIST Office Visit [facility] Family Medicine [place] [address] [place] [place] [phone] [facility], DO [address] [place] [place] [phone] documented as of this encounter Visit Diagnoses Not on filedocumented in this encounter Care Teams K9 Handler Relationship Specialty Start Date End Date [facility] [place] [phone] PCP - General Family Practice 04/16/25 documented as of this encounter
--- OUTSIDE RECORDS SUMMARY | 2025-04-23 12:08 | XMS_ITS | Clinical Summary ---
Author Organization [facility] [address] Address [address] [place] [address] Care Team Providers Care Crew Person Name Role Phone Naya Cummings DO Primary Care Provider [phone] Allergies Active Allergy Reactions Criticality Noted Date Comments Losartan Nausea and Vomiting High 10/26/2023 Hurts kidney fucntion Nsaids (Non-Steroidal Anti-Inflammatory Drug) Other (See Comments) High 10/26/2023 Hurts kidney fucntion Medications acetaminophen (TYLENOL) 500 mg tablet Take 1,000 mg by mouth every 6 hours as needed. 01/18/20 21 Active fluorometholone (FML) 0.1 % suspensionIndicati ons:Dry eyes, bilateral Administer 1 Drop in both eyes 3 times daily. 5 mL 11/23/19 23 Active Additional Information Patient not taking.Reported on 01/18/2025 bisacodyL (DULCOLAX) 5 mg Delayed Release tablet Take 4 tablets by mouth as directed by GI office. 4 Tablet 3 3:17 PM CDT 03/10/20 23 Active Additional Information Patient not taking.Reported on 01/18/2025 sucralfate (CARAFATE) 100 mg/mL suspension Take 10 mL (1 g total) by mouth every 6 (six) hours. 1200 mL 4 9:52 AM SCIENTIFIC INFORMATICS LEADER 10/19/19 24 Active Additional Information Patient not taking.Reported on 01/18/2025 lactulose (ENULOSE) 10 gram/15 mL 10 gram/15 mL solutionIndication s:Hepatic cirrhosis, unspecified hepatic cirrhosis type, unspecified whether ascites present (CMS/HCC) Take 15 mL by mouth every 8 hours. 1500 mL 4 3:38 PM SCIENTIFIC INFORMATICS LEADER 10/20/19 24 Active Additional Information Patient not taking.Reported on 01/18/2025 naloxone (Narcan) 4 mg/spray [place], Non-Aerosol Call 911. Administer one spray of Narcan in one nostril. Repeat every 2-3 minutes as needed if no or minimal response. 2 Each 4 3:38 PM SCIENTIFIC INFORMATICS LEADER 10/26/19 24 Active rifAXIMin (XIFAXAN) 550 mg TabletIndications: Hepatic cirrhosis, unspecified hepatic cirrhosis type, unspecified whether ascites present (CMS/HCC),Hepatic encephalopathy (CMS/HCC) Take 1 Tablet (550 mg) by mouth 2 times daily. 60 Tablet 4 5:04 PM SCIENTIFIC INFORMATICS LEADER 10/26/19 24 Active Additional Information Patient not taking.Reported on 01/18/2025 thiamine (VITAMIN B-1) 100 mg tablet Take 1 Tablet (100 mg) by mouth daily. 100 Tablet 02/23/20 24 Active Additional Information Patient not taking.Reported on 01/18/2025 clobetasoL (TEMOVATE) 0.05 % Ointment APPLY A THIN LAYER OF OINTMENT TOPICALLY TO AFFECTED AREA(S) TWICE DAILY FOR HANDS 04/27/20 24 Active folic acid (FOLVITE) 1 mg tablet Take 1 Tablet (1 mg) by mouth daily. 100 Tablet 1 08/06/20 24 Active NIFEdipine (ADALAT CC) 60 mg Extended Release tabletIndications: Benign hypertension Take 1 tablet by mouth once daily 90 Tablet 1 11/13/19 25 Active nadoloL (CORGARD) 40 mg tabletIndications: Hepatic cirrhosis, unspecified hepatic cirrhosis type, unspecified whether ascites present (CMS/HCC) Take 1 Tablet (40 mg) by mouth daily. 120 Tablet 01/11/20 25 Active Additional Information Patient not taking.Reported on 01/18/2025 pantoprazole (PROTONIX) 40 mg Tablet, Delayed Release (E.C.)Indications: Gastroesophageal reflux disease, unspecified whether esophagitis present Take 1 Tablet (40 mg) by mouth daily. 100 Tablet 3 01/11/20 25 Active HYDROcodone-acetam inophen (NORCO) 5-325 mg tabletIndications: Compression fracture of lumbar vertebra with routine healing, unspecified lumbar vertebral level, subsequent encounter Take 1 Tablet by mouth every 6 hours as needed for Pain, Severe. Max Daily Amount: 4 Tablets 120 Tablet 04/16/20 25 Active HYDROcodone-acetam inophen (NORCO) 5-325 mg tabletIndications: Compression fracture of lumbar vertebra with routine healing, unspecified lumbar vertebral level, subsequent encounter Take 1 Tablet by mouth every 6 hours as needed for Pain, Severe. Max Daily Amount: 4 Tablets 120 Tablet 02/06/20 25 025 Discontin ued(Reord er) Active Problems Patient Care Coordination No te Formatting of this note migh t be different from the original. GI - Dr Jose Juan Chung Problem Noted Date Diagnosed Date Lumbar radiculopathy 08/26/2022 Hepatic cirrhosis 08/04/2022 Benign hypertension 08/04/2022 Gastroesophageal reflux disease 08/04/2022 Compression fracture of lumb ar vertebra with routine healing 08/04/2022 History of hepatitis C 08/04/2022 Controlled substance agreement signed 08/04/2022 Low back pain 07/30/2022 Alcohol abuse 07/30/2022 Hematemesis 07/30/2022 Melena 07/29/2022 Upper GI bleed 07/25/2022 Intractable vomiting 01/20/2022 Cigarette dependence 11/01/2017 Encounters Date Type Department Care Team Description 04/16/2025 Refill [facility] [address] [place] [phone] [facility], DO Compression fracture of lumbar vertebra with routine healing, unspecified lumbar vertebral level, subsequent encounter 04/10/2025 External Device Data [facility] ABSTRACTION Provider, Abstract 04/10/2025 External Device Data [facility]STRACTION Provider, Abstract 03/14/2025 Telephone [facility] [address] [phone] Nayla Smart, BLOW DOWN OPERATOR Information 03/13/2025 External Device Data [facility] ABSTRACTION Provider, Abstract 03/12/2025 External Device Data [facility] ABSTRACTION Provider, Abstract 02/13/2025 Telephone [facility] [address] [facility] [address] [phone] Mara Mckeon MD Clinical Consult Before Scheduling 02/13/2025 Abstract [facility] [address] [facility] [address] [place] [phone] Mara Mckeon MD 02/07/2025 Telephone [facility] [address] [facility] [address] [place] [phone] Mara Mckeon MD Needs Orders Written 02/05/2025 Refill [facility] [address] [facility] [address] [place] [phone] Mara Mckeon MD Compression fracture of lumbar vertebra with routine healing, unspecified lumbar vertebral level, subsequent encounter from Last 3 Months Immunizations Immunization Administration Dates Next Due (ADACEL/BOOSTRIX)(10 YR UP) TDAP VACCINE, 0.5ML, IM 05/26/2023 Family History Medical History Relation Name Comments Liver Disease Brother Pancreatic Cancer Father Cancer Mother Diabetes Sister Thyroid Disease Sister Relation Name Status Comments Brother Father Alive Mother Sister Social History Tobacco Use Types Packs/Day Years Used Date Smoking Tobacco: Former Cigarettes Q uit: 10/23/2023 Smokeless Tobacco: Never Tobacco Cessation:Counseling Given: No Alcohol Use Standard Drinks/Week Comments Not Currently 3 (1 standard drink = 0.6 oz pur e alcohol) Sex and Gender Information Value Date Recorded Sex Assigned at Not on file Legal Sex Male 7:31 PM SCIENTIFIC INFORMATICS LEADER Gender Identity Not on file Sexual Orientation Not on file Last Filed Vital Signs Vital Sign Reading Time Taken Comments Blood Pressure 112/70 01/18/2025 1:55 PM CDT Pulse 70 01/18/2025 1:55 PM CDT Temperature 37.1 C (98.7 F) 01/18/2025 1:55 PM CDT Respiratory Rate 18 04/02/2024 12:56 PM CDT Oxygen Saturation 95% 01/18/2025 1:55 PM CDT Inhaled Oxygen Concentration - - Weight 92.1 kg (203 lb) 01/18/2025 1:55 PM CDT Height 182.9 cm (6') 01/18/2025 1:55 PM CDT Body Mass Index 27.53 01/18/2025 1:55 PM CDT Plan of Treatment Upcoming Encounters Date Type Department Care Team (Late st Contact Info) Description 07/31/2025 10:40 AM SCIENTIFIC INFORMATICS LEADER Office Visit [facility] Medicine [place] [address] [place] [phone] [facility] [address] [place] [phone] Health Maintenance Due Date Last Done Comments HPV VACCINES (1 - Male 3-dos e series) 1997 HEPATITIS B VACCINES (1 of 3 - 19+ 3-dose series) 2001 INFLUENZA VACCINE (#1) 2025 10/26/2023 Pre-Diabetes and Diabetes Screening 08/02/202708/02, 08/04/2022 COLORECTAL SCREENING 03/31/2033 03/31/2023, 03/31/20 23 DTAP/TDAP/TD VACCINES (2 - T d or Tdap) 05/26/2033 05/26/2023 Abdominal Aortic Aneurysm (A AA) Screening Completed 10/16/2023, 01/21/2022, 01/20/2022 Procedures Procedure Name Priority Date/Time Associated Diagnosis Comments HEMOGLOBIN A1C Routine 08/02/2024 12:00 AM SCIENTIFIC INFORMATICS LEADER Encounter for routine adult health examination with abnormal findings COLONOSCOPY REPORT 03/31/2023 12 :43 PM CDT from Last 3 Months or Most Recently Relevant to Health Maintenance Results * HEMOGLOBIN A1C (08/02/2024 12:00 AM SCIENTIFIC INFORMATICS LEADER) HEMOGLOBIN A1C 5.2 <5.7 % of total Hgb [facility] Comment: For the purpose of screening for the presence of diabetes: <5.7% Consistent with the absence of diabetes 5.7-6.4% Consistent with increased risk for diabetes (prediabetes) > or =6.5% Consistent with diabetes This assay result is consistent with a decreased risk of diabetes. Currently, no consensus exists regarding use of hemoglobin A1c for diagnosis of diabetes in children. According to [place] Diabetes Association (ADA) guidelines, hemoglobin A1c <7.0% represents optimal control in non- diabetic patients. Different metrics may apply to specific patient populations. Standards of Medical Care in Diabetes(ADA). ESTIMATED AVERAGE GLUCOSE (MG/DL) 103 mg/dL [facility] ESTIMATED AVERAGE GLUCOSE (MMOL/L) 5.7 mmol/L [facility] Comment: FASTING:NO FASTING: NO Test Performed at: [facility] [address] [place] [address] John Guerrero MD Blood 08/02/2024 08/02/2024 2:1 9 PM SCIENTIFIC INFORMATICS LEADER us Mara Mckeon MD CHEMISTRY ORDERABLES Final Resu lt [facility] [phone] [facility] [address] [place] [phone] * COLONOSCOPY REPORT (03/31/2023 12:43 PM CDT) Narrative Procedure Note Jose Juan Chung MD - 03/31/2023 12:43 PM CDT [facility] GI Patient Name: Kareem Dunaway Procedure Date: 03/31/2023 Date of : 1980 Admit Type: Outpatient Age: 42 Attending MD: Jose Juan Chung MD, Procedure: Colonoscopy Indications: Hematochezia Providers: Jose Juan Chung MD Referring MD: Mara Mckeon Requesting Provider: Medicines: Monitored Anesthesia Care Complications: No immediate complications. Procedure: After I obtained informed consent, the scope was passed under direct vision. Throughout the procedure, the patient's blood pressure, pulse, and oxygen saturations were monitored continuously. The Colonoscope was introduced through the anus and advanced to the terminal ileum. The colonoscopy was performed without difficulty. The patient tolerated the procedure well. The quality of the bowel preparation was excellent. The terminal ileum, ileocecal valve, appendiceal orifice, and rectum were photographed. Findings: The perianal and digital rectal examinations were normal. The colon (entire examined portion) appeared normal. The terminal ileum appeared normal. The exam was otherwise without abnormality on direct and retroflexion views. Impression: - Favoring hemorrhoids as the source of bleeding - The entire examined colon is normal. - The examined portion of the ileum was normal. - The examination was otherwise normal on direct and retroflexion views. - No specimens collected. Recommendation: - Resume previous diet. - Continue present medications. - Repeat colonoscopy in 10 years for surveillance. Jose Juan Chung MD 03/31/2023 12:43:32 PM This report has been signed electronically. Number of Addenda: 0 Estimated Blood Loss: Estimated blood loss: none. us Jose Juan Chung MD GI PROCEDURE ORDERABL ES Final Result from Last 3 Months or Most Recently Relevant to Health Maintenance Insurance [employer] Medicaid [address] [address] MEDICAID [facility] Advance Directives For more information, please contact: [phone] * Full Code (Latest Code Status on File) Date Activated Date Inactivated Comments 03/31/2023 11:48 AM 03/31/2023 3:04 PM Care Teams Crew Person Relationship Specialty Start Date End Date Naya Cummings DO [address] [place] [phone] PCP - General Family Practice 04/16/25
[2025-04-23 12:24] LABS: Hematocrit 42.9 % (37-53); Hemoglobin 14.50 g/dL (11.27-16.99); Mean Corpuscular HGB Conc 33.8 g/dL (30-55); Mean Corpuscular Hemoglobin 30.6 pg (27-33); Mean Corpuscular Volume 90.5 fl (82-101); Nucleated Red Blood Cells % 0 %; Platelet Count 175 10^3/cmm (157-399); Red Blood Count 4.74 10^6/uL (3.85-5.65); White Blood Count 8.10 10^3/uL (3.29-11.43)
[2025-04-23 12:33] VITALS: BP 136/90
--- NOTE | 2025-04-23 12:47 | PC.NURSE ---
96 hr rights reviewed with pt @[id number] with assistance of [facility] electorate officer Elliot Melchor All education reviewed with pt at this time. Pt verbalized understanding to the hold parameters. Pt was given a copy of rights. Mission provided. No further needs at this time.
[2025-04-23 12:48] LABS: Alanine Aminotransferase 9 U/L (0-41); Albumin Level 4.7 g/dL (3.5-5.2); Alkaline Phosphatase 81 U/L (40-130); Anion Gap 18.7 (5-19); Aspartate Amino Transferase 18 U/L (0-40); Blood Urea Nitrogen 12 mg/dL (6-20); Calcium 10.2 mg/dL (8.5-10.5); Carbon Dioxide 27 mmol/L (22-29); Chloride 93 mmol/L (98-107); Creatinine Clr Calc Pharmacy 145.6511; Globulin 3.0 g/dL (1.3-4.6); Glucose 92 mg/dL (65-115); Osmolality Calculated 279 mOsm/kg (285-295); Potassium 3.7 mmol/L (3.5-5.1); Sodium 135 mmol/L (136-145); Total Protein 7.7 g/dL (6.6-8.7)
[2025-04-23 12:52] LABS: Acetaminophen < 5.0 ug/mL (10-30); Alcohol Level < 10 mg/dL (0-10); Salicylate < 0.3 mg/dL (3-10)
[2025-04-23 13:09] LABS: PCP Screen Urine Negative (Negative)
[2025-04-23 13:46] VITALS: BP 125/86; PULSE 85; RESP 17; TEMP 36.3; O2SAT 99
[2025-04-23 14:00] VITALS: BP 125/86; PULSE 85; RESP 17; TEMP 36.3; O2SAT 99
--- NOTE | 2025-04-23 16:10 | PC.NURSE ---
Dr. Nieves gave this nurse verbal orders to restart the pts home medications.
[2025-04-23] MEDS: quetiapine XR (24HR) 50 mg Tablet 100 MG PO (17:00)
[2025-04-23] MEDS: quetiapine XR (24HR) 300 mg Tablet PO (17:02)
[2025-04-23] MEDS: HYDROcodone-acetaminophen 5-325 mg Tablet 1 TAB PO (18:29)
[2025-04-23 19:37] VITALS: BP 113/83; PULSE 89; RESP 20; TEMP 36.8; O2SAT 97
[2025-04-24 06:00] VITALS: RESP 16
[2025-04-24] MEDS: divalproex ER 500 mg Tablet (24H) 1000 MG PO (07:51)
[2025-04-24] MEDS: HYDROcodone-acetaminophen 5-325 mg Tablet 1 TAB PO ×2 (09:45→17:18)
[2025-04-24 14:00] VITALS: BP 105/72; PULSE 83; RESP 18; TEMP 36.8; O2SAT 96
--- NOTE | 2025-04-24 14:53 | PC.NURSE ---
Radiology said if pt. was scheduled for an out pt. MRI and lumbar puncture pt. could not be admitted to the hospital in order to bill insurance for the procedures.
--- NOTE | 2025-04-24 14:59 | PC.NURSE ---
Radiology called back saying if the Medical DrJose ordered the test as in pt. then they would be able to do the test. Radiology said they only saw pt. scheduled for the MRI at 0630, but did not show a lumbar puncture scheduled. Information given to Dr. Nieves. No new orders given.
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
[2025-04-24] MEDS: quetiapine XR (24HR) 300 mg Tablet PO (17:19)
[2025-04-24] MEDS: quetiapine XR (24HR) 50 mg Tablet 100 MG PO (17:19)
[2025-04-24 19:20] VITALS: BP 124/79; PULSE 93; RESP 16; TEMP 37; O2SAT 97
[2025-04-25] MEDS: HYDROcodone-acetaminophen 5-325 mg Tablet 1 TAB PO ×3 (03:45→21:44)
[2025-04-25 06:00] VITALS: BP 129/90; PULSE 90; RESP 18; TEMP 36.4; O2SAT 99
[2025-04-25] MEDS: divalproex ER 500 mg Tablet (24H) 1000 MG PO (08:00)
[2025-04-25 14:00] VITALS: BP 128/81; PULSE 92; RESP 17; O2SAT 98
--- NOTE | 2025-04-25 17:26 | P.NPUPN_ITS ---
Subjective NPU 2 Subjective: 44-year-old male with a history of bipol ar disorder and questionable encephalopathy along with alcohol abuse admitted with decreased need for sleep and disorganized thinking and behavior. Patient had remained intrusive on the unit and appeared to continue to struggle with poor boundaries as he had spent much of the day in front of the nursing station talking incessantly. The patient had reported a past history of significant alcohol abuse. He had acknowledged that he had been sleeping better with the readdition of Seroquel extended release. He had reported that he had been worried that his could not take care of him. He was redirectable on the milieu. He continued to have problems with focus and concentration but was redirectable and reported no problems with balance. The patient reported good energy and stated that he was hopeful to go home soon. Mental Status Exam 2 MSE Comments: This is a well-nourished well-developed white male in hospital scrubs with adequate grooming and fair eye contact with limited tattoos on both arms. He was pacing the hallway. No abnormal movements except for significant psychomotor retardation. He was mostly cooperative with exam in mild to moderate distress. Speech was increased in rate and normal in volume,it remained pressured with significant dysarthria. Mood described as good. His affect was euphoric. Thought process was linear and logical. Thought content: Patient denied suicidal or homicidal ideation. There was evidence of bizarre thinking. He did not report auditory or visual hallucinations. He did not appear to be responding to internal stimuli. The patient exhibits signs of restlessness and irritability. Attention and concentration were limited and his recent and remote memory appeared intact. He recognized the remote mortgage underwriter of this note. He is alert and oriented to person, place. Insight and judgment are impaired. Impulse control is impaired. Vitals/I&O/Wt Last Vital Signs Temp 97.6 F 04/25/25 06:00 Pulse 92 04/25/25 14:00 Resp 17 04/25/25 14:00 BP 128/81 04/25/25 14:00 Pulse Ox 98 04/25/25 14:00 O2 Del Method Room Air 04/25/25 06:00 Data NPU 04/23/25 12:15 04/23/25 12:15 A&P Assessment and plan 1. Bipolar disorder: 2. Encephalopathy acute: 3. Alcohol use disorder: 4. Lumbar stenosis with neurogenic claudication: 5. Manic behavior: 6. Hx of Wernicke's encephalopathy: 7. Psychosis: 8. Cannabis use disorder: Plan: This is a 44-year-old white male with a reported long history of bipolar disorder with recent discharge 2 weeks prior from NPU with concerns about encephalopathy although not clear about wernieke type. P 1. Increase Seroquel xr 500mg at 6PM. Continue abilify 15mg daily. 2. Encourage individual, group and milieu therapy. 3. Continue every 15 minute checks for safety. 4. Encourage sober living treatment after discharge at the highest level of care to which she is willing to commit. 5. Patient needs MRI and LP to complete workup for psychosis and encephalopathy. Attempting to contact patient's to discuss situation. PDMP PDMP Reviewed: Not Reviewed Involuntary Hold Information 2 Hold Status: Legal Status: 96 Hour Hold Date/Time Hold Expires: 04/29/2025 @ 1201 Attestations NPU 2 Medical Necessity Statement*: Inpatient hospitalization is medically necessary and the clinically appropriate intervention at this time. We will monitor medications and make changes as indicated. The patient's likely length of stay is 7-10 days. Coding Level of Care Code Acute Code for [facility] Fwd Diagnoses Bipolar disorder F31.9 Encephalopathy acute G93.40 Alcohol use disorder F10.90 Lumbar stenosis with neurogenic claudication M48.062 Manic behavior F30.10 Hx of Wernicke's encephalopathy Z86.39 Psychosis F29 Cannabis use disorder F12.90
[2025-04-25] MEDS: quetiapine XR (24HR) 50 mg Tablet 200 MG PO (17:54)
[2025-04-25] MEDS: quetiapine XR (24HR) 300 mg Tablet PO (17:54)
[2025-04-25 20:19] VITALS: BP 103/67; PULSE 93; RESP 18; O2SAT 96
[2025-04-26 06:00] VITALS: BP 125/80; PULSE 74; RESP 18; O2SAT 97
[2025-04-26] MEDS: divalproex ER 500 mg Tablet (24H) 1000 MG PO (08:43)
[2025-04-26] MEDS: HYDROcodone-acetaminophen 5-325 mg Tablet 1 TAB PO (11:45)
[2025-04-26 14:00] VITALS: BP 118/77; PULSE 119; RESP 17; TEMP 37.3; O2SAT 97
--- NOTE | 2025-04-26 18:04 | P.NPUPN_ITS ---
Subjective NPU 2 Subjective: 44-year-old male with a history of bipol ar disorder and questionable encephalopathy along with alcohol abuse admitted with decreased need for sleep and disorganized thinking and behavior. The patient continued to appear intrusive on the unit. He had spent most of the day walking and pacing the [place]oto while continuing to struggle with maintaining boundaries. The patient did not have a episodes of aggression. He had engaged in appropriate conversation but later appeared preoccupied by his own thoughts. He had spent some time today pacing the hallway and talking to himself. Staff notes the patient had been redirectable and had been sleeping better at night with the Seroquel extended release. Mental Status Exam 2 MSE Comments: This is a well-nourished well-developed white male in hospital scrubs with adequate grooming and fair eye contact with limited tattoos on both arms. He was pacing the hallway. No abnormal movements except for significant psychomotor activation currently. He was mostly cooperative with exam in mild to moderate distress. Speech was increased in rate and normal in volume, it remained pressured with significant dysarthria. Mood described as okay. His affect was euphoric. Thought process was linear and logical. Thought content: Patient denied suicidal or homicidal ideation. There was evidence of bizarre thinking. He did not report auditory or visual hallucinations. He did appear to be responding to internal stimuli today. The patient exhibits signs of restlessness and irritability. Attention and concentration were limited and his recent and remote memory appeared intact. He is alert and oriented to person, place. Insight and judgment are impaired. Impulse control is impaired. Vitals/I&O/Wt Last Vital Signs Temp 99.1 F 04/26/25 14:00 Pulse 119 H 04/26/25 14:00 Resp 17 04/26/25 14:00 BP 118/77 04/26/25 14:00 Pulse Ox 97 04/26/25 14:00 O2 Del Method Room Air 04/26/25 06:00 Data NPU 04/23/25 12:15 04/23/25 12:15 A&P Assessment and plan 1. Bipolar disorder: 2. Encephalopathy acute: 3. Alcohol use disorder: 4. Lumbar stenosis with neurogenic claudication: 5. Manic behavior: 6. Hx of Wernicke's encephalopathy: 7. Psychosis: 8. Cannabis use disorder: Plan: This is a 44-year-old white male with a reported long history of bipolar disorder with recent discharge 2 weeks prior from NPU with concerns about encephalopathy although not clear about wernieke type. P 1. Continue Seroquel xr 500mg at 6PM. Continue abilify 15mg daily. 2. Encourage individual, group and milieu therapy. 3. Continue every 15 minute checks for safety. 4. Encourage sober living treatment after discharge at the highest level of care to which she is willing to commit. 5. Patient needs MRI and LP to complete workup for psychosis and encephalopathy. Will confirm the particular labs to be ordered from LP. Attempting to contact patient's to discuss situation. PDMP PDMP Reviewed: Not Reviewed Involuntary Hold Information 2 Hold Status: Legal Status: 96 Hour Hold Date/Time Hold Expires: 04/29/2025 @ 1201 Attestations NPU 2 Medical Necessity Statement*: Inpatient hospitalization is medically necessary and the clinically appropriate intervention at this time. We will monitor medications and make changes as indicated. The patient's likely length of stay is 7-10 days. Coding Level of Care Code Acute Code for [facility] Fwd Diagnoses Bipolar disorder F31.9 Encephalopathy acute G93.40 Alcohol use disorder F10.90 Lumbar stenosis with neurogenic claudication M48.062 Manic behavior F30.10 Hx of Wernicke's encephalopathy Z86.39 Psychosis F29 Cannabis use disorder F12.90
[2025-04-26] MEDS: quetiapine XR (24HR) 50 mg Tablet 200 MG PO (18:05)
[2025-04-26] MEDS: quetiapine XR (24HR) 300 mg Tablet PO (18:06)
[2025-04-26] MEDS: diphenhydrAMINE 50 mg/mL SDV 1mL IM (20:19)
[2025-04-26] MEDS: LORazepam 1 MG/0.5 ML injection 2 MG IM (20:19)
[2025-04-26 20:35] VITALS: BP 127/72; PULSE 127; RESP 16; TEMP 36.4; O2SAT 98
[2025-04-27 06:00] VITALS: BP 112/78; PULSE 103; RESP 16; TEMP 36.6; O2SAT 99
[2025-04-27] MEDS: divalproex ER 500 mg Tablet (24H) 1000 MG PO (07:30)
[2025-04-27] MEDS: HYDROcodone-acetaminophen 5-325 mg Tablet 1 TAB PO ×2 (07:44→14:13)
[2025-04-27 14:00] VITALS: BP 138/86; PULSE 104; RESP 18; TEMP 36.6; O2SAT 100
--- NOTE | 2025-04-27 14:47 | W.PM.NPUPNS ---
Subjective NPU Subjective: 44-year-old male with a history of bipolar disorder and questionable encephalopathy along with alcohol abuse admitted with decreased need for sleep and disorganized thinking and behavior. Patient had appeared to have increased activation last night as he struggled with falling asleep despite taking his medications as prescribed. He continued to spend most of the day unable to sit still as he spent much of the day in front of the nurse's his table and remained intrusive often struggling with managing redirection. He had received 2 additional Haldol last night after becoming agitated with his roommate. Mental Status Exam MSE Comments: This is a well-nourished well-developed white male in hospital scrubs with adequate grooming and fair eye contact with limited tattoos on both arms. He was pacing the hallway. No abnormal movements except for significant psychomotor activation currently. He was mostly cooperative with exam in mild to moderate distress. Speech was increased in rate and normal in volume, it remained pressured with significant dysarthria. Mood described as good. His affect was subdued today. Thought process was linear but derailed after a few minutes. Thought content: Patient denied suicidal or homicidal ideation. There was evidence of bizarre thinking. He did not report auditory or visual hallucinations. He did appear to be responding to internal stimuli today. The patient exhibits signs of restlessness and irritability. Attention and concentration were limited and his recent and remote memory appeared intact. He is alert and oriented to person, place. Insight and judgment are impaired. Impulse control is impaired. Vitals/I&O/Wt Last Vital Signs Temp 97.9 F 04/27/25 06:00 Pulse 103 H 04/27/25 06:00 Resp 16 04/27/25 06:00 BP 112/78 04/27/25 06:00 Pulse Ox 99 04/27/25 06:00 O2 Del Method Room Air 04/27/25 06:00 Data NPU 04/23/25 12:15 04/23/25 12:15 A&P Assessment and plan 1. Bipolar disorder: 2. Encephalopathy acute: 3. Alcohol use disorder: 4. Lumbar stenosis with neurogenic claudication: 5. Manic behavior: 6. Hx of Wernicke's encephalopathy: 7. Psychosis: 8. Cannabis use disorder: Plan: This is a 44-year-old white male with a reported long history of bipolar disorder with recent discharge 2 weeks prior from NPU with concerns about encephalopathy although not clear about wernieke type. P 1. Increase Seroquel xr 600mg at 6PM. Continue abilify 15mg daily. Increase depakote to 1250mg daily. 2. Encourage individual, group and milieu therapy. 3. Continue every 15 minute checks for safety. 4. Encourage sober living treatment after discharge at the highest level of care to which she is willing to commit. 5. Patient needs MRI and LP to complete workup for psychosis and encephalopathy. Will confirm the particular labs to be ordered from LP. PDMP PDMP Reviewed: Not Reviewed Involuntary Hold Information Hold Status: Legal Status: 96 Hour Hold Date/Time Hold Expires: 04/29/2025 @ 1201 Attestations NPU Medical Necessity Statement*: Inpatient hospitalization is medically necessary and the clinically appropriate intervention at this time. We will monitor medications and make changes as indicated. The patient's likely length of stay is 7-10 days. Coding Level of Care Code Acute Code for [facility] Fwd Diagnoses Bipolar disorder F31.9 Encephalopathy acute G93.40 Alcohol use disorder F10.90 Lumbar stenosis with neurogenic claudication M48.062 Manic behavior F30.10 Hx of Wernicke's encephalopathy Z86.39 Psychosis F29 Cannabis use disorder F12.90
[2025-04-27] MEDS: quetiapine XR (24HR) 300 mg Tablet 600 MG PO (17:00)
--- NOTE | 2025-04-27 18:17 | PC.NURSE ---
Pt. very agitated did not want to take Seroquel took a lot of encouragement to get him to take it. Pt. talking to himself and pacing very irritable. Dr. Nieves called and gave verbal order for Geodon 40mg PO once time only now.
--- NOTE | 2025-04-27 18:31 | PC.NURSE ---
Dr. Nieves ordered 40mg Geodon PO for this pt for extreme agitation.
[2025-04-27 20:06] VITALS: BP 123/83; PULSE 87; RESP 18; TEMP 36.6; O2SAT 96
[2025-04-28 06:00] VITALS: BP 111/73; PULSE 77; RESP 16; TEMP 36.5; O2SAT 100
[2025-04-28] MEDS: divalproex ER 250 mg Tablet (24H) PO (07:11)
[2025-04-28] MEDS: divalproex ER 500 mg Tablet (24H) 1000 MG PO (07:11)
[2025-04-28] MEDS: HYDROcodone-acetaminophen 5-325 mg Tablet 1 TAB PO ×2 (09:04→18:52)
--- NOTE | 2025-04-28 09:42 | NUR.SHIFT ---
Pt states that he slept great last. He denies any anxiety or depression. While trying to do his assessment he coughed up a chunk of his sausage. He states that his food is getting stuck in his throat. He then attempted to eat some scambled eggs and the same thing happened. He stopped eating and decided he was done with breakfast. Dr hernandez for [facility] and tx has been entered. I felt of his throat to see if there were any lumps or swelling. Under his Lt ear you can feel a knot and then further on down his throat you can feel some minor swelling.
--- NOTE | 2025-04-28 13:23 | P.NPUPN_ITS ---
Subjective NPU 2 Subjective: 44-year-old male with a history of bipol ar disorder and questionable encephalopathy along with alcohol abuse admitted with decreased need for sleep and disorganized thinking and behavior. The patient appeared to have some difficulty swallowing today as he had a piece of sausage caught in his throat. He had endorsed having problems with coordinated swallowing for several months. He had struggles with falling asleep. He continued to appear somewhat hyperactive while moving nonstop and speaking incessantly and spontaneously even when not asked questions. The patient reported that he wished to go home today as he had stated that he was planning on volunteering here at the hospital. Mental Status Exam 2 MSE Comments: This is a well-nourished well-developed white male in hospital scrubs with adequate grooming and fair eye contact with limited tattoos on both arms. He was pacing the hallway. No abnormal movements except for increase psychomotor activation. He was mostly cooperative with exam in mild to moderate distress. Speech was normal in rate and normal in volume, he remained pressured with significant dysarthria. Mood described as good. His affect was labile. Thought process was tangential with flight of ideas. Thought content: Patient denied suicidal or homicidal ideation. There was evidence of bizarre thinking. He did not report auditory or visual hallucinations. He did appear to be responding to internal stimuli today. The patient exhibits signs of restlessness and irritability. Attention and concentration were limited and his recent and remote memory appeared intact. He is alert and oriented to person, place. Insight and judgment are impaired. Impulse control is impaired. Vitals/I&O/Wt Last Vital Signs Temp 97.7 F 04/28/25 06:00 Pulse 77 04/28/25 06:00 Resp 16 04/28/25 06:00 BP 111/73 04/28/25 06:00 Pulse Ox 100 04/28/25 06:00 O2 Del Method Room Air 04/28/25 06:00 Weight last 48 hrs Weight 80.014 kg Data NPU 04/23/25 12:15 04/23/25 12:15 A&P Assessment and plan 1. Bipolar disorder: 2. Encephalopathy acute: 3. Alcohol use disorder: 4. Lumbar stenosis with neurogenic claudication: 5. Manic behavior: 6. Hx of Wernicke's encephalopathy: 7. Psychosis: 8. Cannabis use disorder: Plan: This is a 44-year-old white male with a reported long history of bipolar disorder with recent discharge 2 weeks prior from NPU with concerns about encephalopathy although not clear about wernieke type. P 1. Continue Seroquel xr 600mg at 6PM. Continue abilify 15mg daily. Continue depakote to 1250mg daily. 2. Encourage individual, group and milieu therapy. 3. Continue every 15 minute checks for safety. 4. Encourage sober living treatment after discharge at the highest level of care to which she is willing to commit. 5. Patient needs MRI and LP to complete workup for psychosis and encephalopathy. Will confirm the particular labs to be ordered from LP. OT consult pending. PDMP PDMP Reviewed: Not Reviewed Involuntary Hold Information 2 Hold Status: Legal Status: 96 Hour Hold Date/Time Hold Expires: 04/29/2025 @ 1201 Attestations NPU 2 Medical Necessity Statement*: Inpatient hospitalization is medically necessary and the clinically appropriate intervention at this time. We will monitor medications and make changes as indicated. The patient's likely length of stay is 7-10 days. Coding Level of Care Code Acute Code for [facility] Fwd Diagnoses Bipolar disorder F31.9 Encephalopathy acute G93.40 Alcohol use disorder F10.90 Lumbar stenosis with neurogenic claudication M48.062 Manic behavior F30.10 Hx of Wernicke's encephalopathy Z86.39 Psychosis F29 Cannabis use disorder F12.90
[2025-04-28 14:00] VITALS: BP 117/75; PULSE 115; RESP 18; TEMP 35.4; O2SAT 100
[2025-04-28] MEDS: quetiapine XR (24HR) 300 mg Tablet 600 MG PO (17:33)
[2025-04-28 20:29] VITALS: BP 135/95; PULSE 103; RESP 16; TEMP 36.9; O2SAT 99
[2025-04-29] MEDS: HYDROcodone-acetaminophen 5-325 mg Tablet 1 TAB PO ×3 (02:44→15:56)
[2025-04-29 06:45] VITALS: BP 115/73; PULSE 111; RESP 16; TEMP 36.8
[2025-04-29] MEDS: divalproex ER 500 mg Tablet (24H) 1000 MG PO (08:35)
[2025-04-29] MEDS: divalproex ER 250 mg Tablet (24H) PO (08:35)
[2025-04-29 14:00] VITALS: BP 132/94; PULSE 93; RESP 18; TEMP 36.6; O2SAT 100
--- NOTE | 2025-04-29 15:37 | P.NPUPN_ITS ---
Subjective NPU 2 Subjective: 44-year-old male with a history of bipol ar disorder and questionable encephalopathy along with alcohol abuse admitted with decreased need for sleep and disorganized thinking and behavior. The patient expressed desire to return home as his grandchildren were in town. The patient had reported that he had not been on allowed to advance to the because of his mental health issues at that time as he stated that it might have been deanna . The patient had endorsed that previously he had done well taking Lamictal for his mood. He continued to appear intrusive and spent much of the day speaking to nurses with numerous requests. The patient had endorsed having some difficulties with swallowing. He reported some difficulties with falling asleep. He reports that he felt better with his medications adjusted and stated that he planned on installing an outdoor pool in his backyard when he got home. He did not require any as needed medications yesterday. He continued to report ideas of wanting to keep busy and volunteer in the hospital when he returned home. Mental Status Exam 2 MSE Comments: This is a well-nourished well-developed white male in hospital scrubs with adequate grooming and fair eye contact with limited tattoos on both arms. He was in his room with less pacing noted on interview. No abnormal involuntary motor movements appreciated. He was mostly cooperative with exam in mild to moderate distress. Speech was increased in rate and normal in volume with mild dysarthria appreciated. Mood described as good. His affect was subdued. Thought process was tangential with flight of ideas. Thought content: Patient denied suicidal or homicidal ideation. There was evidence of overvalued ideas. He did not report auditory or visual hallucinations. He did not appear to be responding to internal stimuli today. Attention and concentration were limited and his recent and remote memory appeared intact. He is alert and oriented to person, place. Insight is limited and judgment is poor. Impulse control is improving. Vitals/I&O/Wt Last Vital Signs Temp 98.2 F 04/29/25 06:45 Pulse 111 H 04/29/25 06:45 Resp 16 04/29/25 06:45 BP 115/73 04/29/25 06:45 Pulse Ox 99 04/28/25 20:29 O2 Del Method Room Air 04/28/25 20:29 Weight last 48 hrs Weight 80.014 kg Data NPU 04/23/25 12:15 04/23/25 12:15 A&P Assessment and plan 1. Bipolar disorder: 2. Encephalopathy acute: 3. Alcohol use disorder: 4. Lumbar stenosis with neurogenic claudication: 5. Manic behavior: 6. Hx of Wernicke's encephalopathy: 7. Psychosis: 8. Cannabis use disorder: Plan: This is a 44-year-old white male with a reported long history of bipolar disorder with recent discharge 2 weeks prior from NPU with concerns about encephalopathy although not clear about wernieke type. P 1. Continue Seroquel xr 600mg at 6PM. Continue abilify 15mg daily. Continue depakote to 1250mg daily. 2. Encourage individual, group and milieu therapy. 3. Continue every 15 minute checks for safety. 4. Encourage sober living treatment after discharge at the highest level of care to which she is willing to commit. 5. Patient needs MRI and LP to complete workup for psychosis and encephalopathy. Will confirm the particular labs to be ordered from LP. OT consult pending. 21 day hold filed today. PDMP PDMP Reviewed: Not Reviewed Involuntary Hold Information 2 Hold Status: Legal Status: 96 Hour Hold Date/Time Hold Expires: 04/29/2025 @ 1201 Attestations [facility] 2 Medical Necessity Statement*: Inpatient hospitalization is medically necessary and the clinically appropriate intervention at this time. We will monitor medications and make changes as indicated. The patient's likely length of stay is 7-10 days. Coding Level of Care Code Acute Code for [facility] Fwd Diagnoses Bipolar disorder F31.9 Encephalopathy acute G93.40 Alcohol use disorder F10.90 Lumbar stenosis with neurogenic claudication M48.062 Manic behavior F30.10 Hx of Wernicke's encephalopathy Z86.39 Psychosis F29 Cannabis use disorder F12.90
[2025-04-29] MEDS: LORazepam 1 MG/0.5 ML injection 2 MG IM (16:31)
[2025-04-29] MEDS: water for injection-sterile 10 ML 2 ML (16:31)
[2025-04-29] MEDS: diphenhydrAMINE 50 mg/mL SDV 1mL IM (16:31)
--- NOTE | 2025-04-29 16:49 | PC.NURSE ---
Pt received n order for a 21 day, and was aggressive and would not de-escalate. Pt. then received a G-52 which is geodon, benadryl, and lorazepam. Pt. became calm and had no behavioral problems thereafter.
[2025-04-29] MEDS: quetiapine XR (24HR) 300 mg Tablet 600 MG PO (17:18)
[2025-04-29 19:15] VITALS: RESP 16
--- NOTE | 2025-04-29 19:16 | PC.NURSE ---
vitals not done due to pt sleeping
[2025-04-30 04:15] VITALS: BP 120/64; PULSE 112; RESP 20; O2SAT 99
[2025-04-30] MEDS: artificial tears Op Soln 15 mL Btl 1 DROP EYE-BOTH (04:39)
[2025-04-30] MEDS: cetylpyridinium Lozenge 1 EACH MUCOUS MEM (04:39)
--- NOTE | 2025-04-30 05:40 | PC.NURSE ---
Patient with c/o sore throat pain with swallowing. Posterior pharynx erythema and post nasal drainage noted. Given PRN throat lozenge for this.
[2025-04-30] MEDS: divalproex ER 500 mg Tablet (24H) 1000 MG PO (08:51)
[2025-04-30] MEDS: divalproex ER 250 mg Tablet (24H) PO (08:52)
[2025-04-30 14:00] VITALS: BP 119/84; PULSE 119; RESP 18; TEMP 36.6; O2SAT 100
--- NOTE | 2025-04-30 15:04 | W.PM.NPUPNS ---
Subjective NPU Subjective: 44-year-old male with a history of bipolar disorder and questionable encephalopathy along with alcohol abuse admitted with decreased need for sleep and disorganized thinking and behavior. The patient was redirectable. He had reported adequate sleep. He had reported that he wished to go home soon. The patient had reported that he was feeling better. He continued to remain intrusive and struggled with sitting still. The patient denied having thoughts of hurting himself or others. He had continued to put earplugs in his ears stating that he felt like something was down in his ears and this had helped him to better manage that sensation. He had appeared at times to be engaging in doing push-ups here on the unit. He had reported that he was bored and referred to having plans with redoing the back of his home including putting up drywall and putting mathieu down for a new room. Mental Status Exam MSE Comments: This is a well-nourished well-developed white male in hospital scrubs with adequate grooming and fair eye contact with limited tattoos on both arms. He was in his room with less pacing noted on interview. He remained hypermotoric and energized. No abnormal involuntary motor movements appreciated. He was mostly cooperative with exam in mild to moderate distress. Speech was increased in rate and normal in volume with mild dysarthria appreciated. Mood described as good. His affect was subdued. Thought process remained tangential with flight of ideas. Thought content: Patient denied suicidal or homicidal ideation. There was evidence of overvalued ideas. He did not report auditory or visual hallucinations. He did not appear to be responding to internal stimuli today. Attention and concentration were limited and his recent and remote memory appeared intact. He is alert and oriented to person, place and time. Insight is limited and judgment is poor. Impulse control is improving. Vitals/I&O/Wt Last Vital Signs Temp 98 F 04/29/25 14:00 Pulse 112 H 04/30/25 04:15 Resp 20 H 04/30/25 04:15 BP 120/64 04/30/25 04:15 Pulse Ox 99 04/30/25 04:15 O2 Del Method Room Air 04/28/25 20:29 Data NPU 04/23/25 12:15 04/23/25 12:15 A&P Assessment and plan 1. Bipolar disorder: 2. Encephalopathy acute: 3. Alcohol use disorder: 4. Lumbar stenosis with neurogenic claudication: 5. Manic behavior: 6. Hx of Wernicke's encephalopathy: 7. Psychosis: 8. Cannabis use disorder: Plan: This is a 44-year-old white male with a reported long history of bipolar disorder with recent discharge 2 weeks prior from NPU with concerns about encephalopathy although not clear about wernieke type. P 1. Increase Seroquel xr 700mg at 6PM. Continue abilify 15mg daily. Continue depakote ER at 1250mg daily. 2. Encourage individual, group and milieu therapy. 3. Continue every 15 minute checks for safety. 4. Encourage sober living treatment after discharge at the highest level of care to which she is willing to commit. 5. Patient needs MRI and LP to complete workup for psychosis and encephalopathy. Will confirm the particular labs to be ordered from LP. OT consult pending. 21 day hold filed today. PDMP PDMP Reviewed: Not Reviewed Involuntary Hold Information Hold Status: Legal Status: 96 Hour Hold Date/Time Hold Expires: 04/29/2025 @ 1201 Attestations NPU Medical Necessity Statement*: Inpatient hospitalization is medically necessary and the clinically appropriate intervention at this time. We will monitor medications and make changes as indicated. The patient's likely length of stay is 7-10 days. Coding Level of Care Code Acute Code for [facility] Diagnoses Bipolar disorder F31.9 Encephalopathy acute G93.40 Alcohol use disorder F10.90 Lumbar stenosis with neurogenic claudication M48.062 Manic behavior F30.10 Hx of Wernicke's encephalopathy Z86.39 Psychosis F29 Cannabis use disorder F12.90
[2025-04-30] MEDS: quetiapine XR (24HR) 300 mg Tablet 600 MG PO (17:43)
[2025-04-30] MEDS: quetiapine XR (24HR) 50 mg Tablet 100 MG PO (17:43)
[2025-04-30 19:40] VITALS: BP 131/78; PULSE 97; RESP 18; TEMP 36.9; O2SAT 100
[2025-04-30] MEDS: HYDROcodone-acetaminophen 5-325 mg Tablet 1 TAB PO (19:57)
[2025-05-01 05:51] VITALS: BP 138/92; PULSE 88; RESP 18; O2SAT 100
[2025-05-01] MEDS: divalproex ER 500 mg Tablet (24H) 1000 MG PO (08:04)
[2025-05-01] MEDS: divalproex ER 250 mg Tablet (24H) PO (08:05)
--- NOTE | 2025-05-01 13:49 | PC.NURSE ---
Dr. Nieves ordered a Trough Depakote level to be drawn tomorrow morning before his am dose of Depakote.
[2025-05-01 13:57] VITALS: BP 125/77; PULSE 99; RESP 16; TEMP 36.4; O2SAT 99
--- NOTE | 2025-05-01 15:13 | W.PM.NPUPNS ---
Subjective NPU Subjective: 44-year-old male with a history of bipolar disorder and questionable encephalopathy along with alcohol abuse admitted with decreased need for sleep and disorganized thinking and behavior. The patient remained redirectable. He had been less intrusive today. He had some improvement in sleep patterns noted. He had stated that he wished to return home and remained his own guardian. The patient had reported no problems currently with balance. He did not endorse any physical symptoms such as weakness. He was redirectable on the milieu. He did not require any as needed medications. He reported normal appetite. He denied having any pain issues. Mental Status Exam MSE Comments: This is a well-nourished well-developed white male in hospital scrubs with adequate grooming and fair eye contact with some tattoos on both arms. There was slight decrease in intensity of pacing. There was no abnormal involuntary motor movements appreciated today except for some limited shuffling. He was cooperative with exam in mild distress. Speech is less pressured with diminished volume, muffled and dysarthria appreciated with significant mumbling. Mood described as allright His affect was restricted. Thought process was linear but appeared to become circumstantial later. Thought content: Patient denied suicidal or homicidal ideation. There were no delusions reported but significant magical thinking and bizarre thinking, he did not report auditory or visual hallucinations. Attention and concentration were limited and his recent and remote memory appeared impaired. He is alert and oriented to person, place. Insight and judgment are impaired. Impulse control is impaired. Vitals/I&O/Wt Last Vital Signs Temp 97.6 F 05/01/25 13:57 Pulse 99 05/01/25 13:57 Resp 16 05/01/25 13:57 BP 125/77 05/01/25 13:57 Pulse Ox 99 05/01/25 13:57 O2 Del Method Room Air 05/01/25 13:57 Data NPU 04/23/25 12:15 04/23/25 12:15 A&P Assessment and plan 1. Bipolar disorder: 2. Encephalopathy acute: 3. Alcohol use disorder: 4. Lumbar stenosis with neurogenic claudication: 5. Manic behavior: 6. Hx of Wernicke's encephalopathy: 7. Psychosis: 8. Cannabis use disorder: Plan: This is a 44-year-old white male with a reported long history of bipolar disorder with recent discharge 2 weeks prior from NPU with concerns about encephalopathy although not clear about wernieke type. P 1. Continue Seroquel xr 700mg at 6PM. Continue abilify 15mg daily. Continue depakote ER at 1250mg daily. Check depakote level in am. 2. Encourage individual, group and milieu therapy. 3. Continue every 15 minute checks for safety. 4. Encourage sober living treatment after discharge at the highest level of care to which she is willing to commit. 5. Patient needs MRI and LP to complete workup for psychosis and encephalopathy. Will confirm the particular labs to be ordered from LP. PDMP PDMP Reviewed: Not Reviewed Involuntary Hold Information Hold Status: Legal Status: 96 Hour Hold Date/Time Hold Expires: 04/29/2025 @ 1201 Attestations NPU Medical Necessity Statement*: Inpatient hospitalization is medically necessary and the clinically appropriate intervention at this time. We will monitor medications and make changes as indicated. The patient's likely length of stay is 7-10 days. Coding Level of Care Code Acute Code for [facility] Diagnoses Bipolar disorder F31.9 Encephalopathy acute G93.40 Alcohol use disorder F10.90 Lumbar stenosis with neurogenic claudication M48.062 Manic behavior F30.10 Hx of Wernicke's encephalopathy Z86.39 Psychosis F29 Cannabis use disorder F12.90
[2025-05-01] MEDS: HYDROcodone-acetaminophen 5-325 mg Tablet 1 TAB PO (15:35)
[2025-05-01] MEDS: quetiapine XR (24HR) 50 mg Tablet 100 MG PO (17:36)
[2025-05-01] MEDS: quetiapine XR (24HR) 300 mg Tablet 600 MG PO (17:37)
[2025-05-01 19:18] VITALS: BP 123/79; PULSE 98; RESP 18; O2SAT 99
[2025-05-02 06:00] VITALS: RESP 18
--- NOTE | 2025-05-02 06:45 | PC.NURSE ---
Patient refused charge nurse notified
[2025-05-02] MEDS: divalproex ER 500 mg Tablet (24H) 1000 MG PO (08:50)
[2025-05-02] MEDS: divalproex ER 250 mg Tablet (24H) PO (08:50)
[2025-05-02] MEDS: HYDROcodone-acetaminophen 5-325 mg Tablet 1 TAB PO ×3 (08:53→20:30)
--- NOTE | 2025-05-02 12:25 | P.NPUPN_ITS ---
Subjective NPU 2 Subjective: 44-year-old male with a history of bipol ar disorder and questionable encephalopathy along with alcohol abuse admitted with decreased need for sleep and disorganized thinking and behavior. The patient had reported that he hurt his arm yesterday and it felt sore as he had been trying to engage in physical exercises to keep himself in shape later at night. He had apparently slept 7 hours last night. He had continued to be present near the nursing station throughout much of the day often wandering and remaining intrusive at times with others. He had reported no side effects from his medication regimen. Mental Status Exam 2 MSE Comments: This is a well-nourished well-developed white male in hospital scrubs with adequate grooming and fair eye contact with some tattoos on both arms. There continued to be increased psychomotor activation. There was no abnormal involuntary motor movements appreciated today with no shuffling gait. He was cooperative with exam in mild distress. Speech is pressured with normal volume but continued evidence of dysarthria. Mood described as okay His affect was flat. Thought process was tangential with evidence of flight of ideas. Thought content: Patient denied suicidal or homicidal ideation. There were no delusions reported with no magical thinking appreciated. He did not appear to be responding to internal stimuli. Attention and concentration were limited and his recent and remote memory appeared impaired. He is alert and oriented to person, place and time. Insight and judgment are impaired. Impulse control is impaired. Vitals/I&O/Wt Last Vital Signs Temp 97.6 F 05/01/25 13:57 Pulse 98 05/01/25 19:18 Resp 18 05/02/25 06:00 BP 123/79 05/01/25 19:18 Pulse Ox 99 05/01/25 19:18 O2 Del Method Room Air 05/01/25 19:18 Data NPU 04/23/25 12:15 04/23/25 12:15 A&P Assessment and plan 1. Bipolar disorder: 2. Encephalopathy acute: 3. Alcohol use disorder: 4. Lumbar stenosis with neurogenic claudication: 5. Manic behavior: 6. Hx of Wernicke's encephalopathy: 7. Psychosis: 8. Cannabis use disorder: Plan: This is a 44-year-old white male with a reported long history of bipolar disorder with recent discharge 2 weeks prior from NPU with concerns about encephalopathy although not clear about wernieke type. P 1. Continue Seroquel xr 700mg at 6PM. Continue abilify 15mg daily. Increase depakote ER at 1500mg daily. Depakote level was 58.5. 2. Encourage individual, group and milieu therapy. 3. Continue every 15 minute checks for safety. 4. Encourage sober living treatment after discharge at the highest level of care to which she is willing to commit. 5. Patient needs MRI and LP to complete workup for psychosis and encephalopathy. Will confirm the particular labs to be ordered from LP. Patient continues to have a fluctuating course of consciousness and illness with periods of increased flight of ideas and increased psychomotor activity in unpredictable manner. Court hearing tommorow for 21 day stay. PDMP PDMP Reviewed: Not Reviewed Involuntary Hold Information 2 Hold Status: Legal Status: 96 Hour Hold Date/Time Hold Expires: 04/29/2025 @ 1201 Attestations NPU 2 Medical Necessity Statement*: Inpatient hospitalization is medically necessary and the clinically appropriate intervention at this time. We will monitor medications and make changes as indicated. The patient's likely length of stay is 7-10 days. Coding Level of Care Code Acute Code for [facility] Diagnoses Bipolar disorder F31.9 Encephalopathy acute G93.40 Alcohol use disorder F10.90 Lumbar stenosis with neurogenic claudication M48.062 Manic behavior F30.10 Hx of Wernicke's encephalopathy Z86.39 Psychosis F29 Cannabis use disorder F12.90
[2025-05-02 13:51] VITALS: BP 118/84; PULSE 105; RESP 17; TEMP 37.1; O2SAT 98
[2025-05-02] MEDS: quetiapine XR (24HR) 50 mg Tablet 100 MG PO (17:38)
[2025-05-02] MEDS: quetiapine XR (24HR) 300 mg Tablet 600 MG PO (17:38)
[2025-05-02 19:11] VITALS: BP 130/88; PULSE 95; RESP 18; TEMP 36.6; O2SAT 99
[2025-05-03 06:00] VITALS: RESP 18
--- NOTE | 2025-05-03 06:46 | PC.NURSE ---
Patient refused charge nurse notified.
[2025-05-03] MEDS: divalproex ER 250 mg Tablet (24H) PO (08:12)
[2025-05-03] MEDS: divalproex ER 500 mg Tablet (24H) 1000 MG PO (08:12)
[2025-05-03] MEDS: HYDROcodone-acetaminophen 5-325 mg Tablet 1 TAB PO ×2 (12:32→20:19)
[2025-05-03 14:00] VITALS: BP 118/86; PULSE 114; RESP 17; O2SAT 100
[2025-05-03] MEDS: quetiapine XR (24HR) 50 mg Tablet 100 MG PO (16:59)
[2025-05-03] MEDS: quetiapine XR (24HR) 300 mg Tablet 600 MG PO (16:59)
--- NOTE | 2025-05-03 18:31 | W.PM.NPUPNS ---
Subjective NPU Subjective: Patient presented today reporting that he is okay. He is behavior in the court continue to be reflective of his encephalopathy. His thoughts about the process in the court room and his processes being here in the hospital continue to show limitations in cognition per staff reports and direct observation. He was talking about discharge and how that could happen but he continues to appear to understand our desire to try to understand why there is dramatic change has happened over the last couple months. He denied any side effects of the medication. Mental Status Exam MSE Comments: This is a well-nourished well-developed white male in hospital scrubs with adequate grooming and fair eye contact with some tattoos on both arms. There continued to be increased psychomotor activation. There was no abnormal involuntary motor movements appreciated today with no shuffling gait. He was cooperative with exam in mild distress. Speech is pressured with normal volume but continued evidence of dysarthria. Mood described as okay His affect was flat. Thought process was tangential with evidence of flight of ideas. Thought content: Patient denied suicidal or homicidal ideation. There were no delusions reported with no magical thinking appreciated. He did not appear to be responding to internal stimuli. Attention and concentration were limited and his recent and remote memory appeared impaired. He is alert and oriented to person, place and time. Insight and judgment are impaired. Impulse control is impaired. Vitals/I&O/Wt Last Vital Signs Temp 97.8 F 05/02/25 19:11 Pulse 114 H 05/03/25 14:00 Resp 17 05/03/25 14:00 BP 118/86 05/03/25 14:00 Pulse Ox 100 05/03/25 14:00 O2 Del Method Room Air 05/02/25 19:11 Data NPU 04/23/25 12:15 04/23/25 12:15 A&P Assessment and plan 1. Bipolar disorder: 2. Encephalopathy acute: 3. Alcohol use disorder: 4. Lumbar stenosis with neurogenic claudication: 5. Manic behavior: 6. Hx of Wernicke's encephalopathy: 7. Psychosis: 8. Cannabis use disorder: Plan: This is a 44-year-old white male with a reported long history of bipolar disorder with recent discharge 2 weeks prior from NPU with concerns about encephalopathy although not clear about wernieke type. P 1. Continue Seroquel xr 700mg at 6PM. Continue abilify 15mg daily. Increase depakote ER at 1500mg daily. Depakote level was 58.5. 2. Encourage individual, group and milieu therapy. 3. Continue every 15 minute checks for safety. 4. Encourage sober living treatment after discharge at the highest level of care to which she is willing to commit. 5. Patient needs MRI and LP to complete workup for psychosis and encephalopathy. Will confirm the particular labs to be ordered from LP. Patient continues to have a fluctuating course of consciousness and illness with periods of increased flight of ideas and increased psychomotor activity in unpredictable manner. Court hearing for 21-day hold earlier today and he was placed on a hold. PDMP PDMP Reviewed: Not Reviewed Involuntary Hold Information Hold Status: Legal Status: 96 Hour Hold Date/Time Hold Expires: 05/24/2025 Attestations NPU Medical Necessity Statement*: Inpatient hospitalization is medically necessary and the clinically appropriate intervention at this time. We will monitor medications and make changes as indicated. The patient's likely length of stay is 7-10 days. Coding Level of Care Code Acute Code for [facility] Fwd Diagnoses Bipolar disorder F31.9 Encephalopathy acute G93.40 Alcohol use disorder F10.90 Lumbar stenosis with neurogenic claudication M48.062 Manic behavior F30.10 Hx of Wernicke's encephalopathy Z86.39 Psychosis F29 Cannabis use disorder F12.90
[2025-05-03 20:03] VITALS: BP 113/74; PULSE 125; RESP 18; TEMP 36.6; O2SAT 100
[2025-05-04] MEDS: HYDROcodone-acetaminophen 5-325 mg Tablet 1 TAB PO ×2 (03:47→19:02)
[2025-05-04] MEDS: cetylpyridinium Lozenge 1 EACH MUCOUS MEM (03:47)
[2025-05-04 06:00] VITALS: BP 110/71; PULSE 108; RESP 16; TEMP 36.5; O2SAT 97
[2025-05-04] MEDS: divalproex ER 500 mg Tablet (24H) 1000 MG PO (08:03)
[2025-05-04] MEDS: divalproex ER 250 mg Tablet (24H) PO (08:04)
--- NOTE | 2025-05-04 09:17 | P.NPUPN_ITS ---
Subjective NPU 2 Subjective: Patient presented today reporting that he is doing fine. Continue to have moments of confusion and aimless speech and behavior per staff reports and direct observation. He denied any side effects of the medication and we continued to discuss the plan which includes hopefully getting an MRI on Tuesday and working with neurology on an LP. He denied any side effects to medication. Mental Status Exam 2 MSE Comments: This is a well-nourished well-developed white male in hospital scrubs with adequate grooming and fair eye contact with some tattoos on both arms. There continued to be increased psychomotor activation. There was no abnormal involuntary motor movements appreciated today with no shuffling gait. He was cooperative with exam in mild distress. Speech is pressured with normal volume but continued evidence of dysarthria. Mood described as okay His affect was flat. Thought process was tangential with evidence of flight of ideas. Thought content: Patient denied suicidal or homicidal ideation. There were no delusions reported with no magical thinking appreciated. He did not appear to be responding to internal stimuli. Attention and concentration were limited and his recent and remote memory appeared impaired. He is alert and oriented to person, place and time. Insight and judgment are impaired. Impulse control is impaired. Vitals/I&O/Wt Last Vital Signs Temp 97.7 F 05/04/25 06:00 Pulse 108 H 05/04/25 06:00 Resp 16 05/04/25 06:00 BP 110/71 05/04/25 06:00 Pulse Ox 97 05/04/25 06:00 O2 Del Method Room Air 05/04/25 06:00 Data NPU 04/23/25 12:15 04/23/25 12:15 A&P Assessment and plan 1. Bipolar disorder: 2. Encephalopathy acute: 3. Alcohol use disorder: 4. Lumbar stenosis with neurogenic claudication: 5. Manic behavior: 6. Hx of Wernicke's encephalopathy: 7. Psychosis: 8. Cannabis use disorder: Plan: This is a 44-year-old white male with a reported long history of bipolar disorder with recent discharge 2 weeks prior from NPU with concerns about encephalopathy although not clear about wernieke type. P 1. Continue Seroquel xr 700mg at 6PM. Continue abilify 15mg daily. Increase depakote ER at 1500mg daily. Depakote level was 58.5. 2. Encourage individual, group and milieu therapy. 3. Continue every 15 minute checks for safety. 4. Encourage sober living treatment after discharge at the highest level of care to which she is willing to commit. 5. Patient needs MRI and LP to complete workup for psychosis and encephalopathy. Will confirm the particular labs to be ordered from LP. Patient continues to have a fluctuating course of consciousness and illness with periods of increased flight of ideas and increased psychomotor activity in unpredictable manner. Court hearing for 21-day hold earlier today and he was placed on a hold. PDMP PDMP Reviewed: Not Reviewed Involuntary Hold Information 2 Hold Status: Legal Status: 96 Hour Hold Date/Time Hold Expires: 05/24/2025 Attestations NPU 2 Medical Necessity Statement*: Inpatient hospitalization is medically necessary and the clinically appropriate intervention at this time. We will monitor medications and make changes as indicated. The patient's likely length of stay is 7-10 days. Coding Level of Care Code Acute Code for [facility]wd Diagnoses Bipolar disorder F31.9 Encephalopathy acute G93.40 Alcohol use disorder F10.90 Lumbar stenosis with neurogenic claudication M48.062 Manic behavior F30.10 Hx of Wernicke's encephalopathy Z86.39 Psychosis F29 Cannabis use disorder F12.90
[2025-05-04 14:00] VITALS: BP 136/98; PULSE 97; RESP 18; TEMP 36.4; O2SAT 100
[2025-05-04] MEDS: quetiapine XR (24HR) 300 mg Tablet 600 MG PO (17:41)
[2025-05-04] MEDS: quetiapine XR (24HR) 50 mg Tablet 100 MG PO (17:41)
[2025-05-04 22:00] VITALS: BP 112/75; PULSE 90; RESP 18; O2SAT 99
[2025-05-05 06:00] VITALS: BP 120/83; PULSE 95; RESP 16; TEMP 36.4; O2SAT 100
[2025-05-05] MEDS: divalproex ER 250 mg Tablet (24H) PO (06:59)
[2025-05-05] MEDS: divalproex ER 500 mg Tablet (24H) 1000 MG PO (06:59)
[2025-05-05] MEDS: HYDROcodone-acetaminophen 5-325 mg Tablet 1 TAB PO ×2 (07:05→19:49)
[2025-05-05 14:00] VITALS: BP 109/76; PULSE 85; RESP 18; TEMP 36.6; O2SAT 100
--- NOTE | 2025-05-05 16:20 | P.NPUPN_ITS ---
Subjective NPU 2 Subjective: Patient presented today continuing to be interested in going home but accepting of the fact that still needs to be here. We talked about going home and returning tomorrow but we discussed that is not how we do that. We discussed the plan to get him an MRI as soon as possible and an LP and he is aware of what those things are but continues to mumble fairly incoherent information per staff reports and direct observation. He denies any side effects with medication. Mental Status Exam 2 MSE Comments: This is a well-nourished well-developed white male in hospital scrubs with adequate grooming and fair eye contact with some tattoos on both arms. There continued to be increased psychomotor activation. There was no abnormal involuntary motor movements appreciated today with no shuffling gait. He was cooperative with exam in mild distress. Speech is pressured with normal volume but continued evidence of dysarthria. Mood described as okay His affect was flat. Thought process was tangential with evidence of flight of ideas. Thought content: Patient denied suicidal or homicidal ideation. There were no delusions reported with no magical thinking appreciated. He did not appear to be responding to internal stimuli. Attention and concentration were limited and his recent and remote memory appeared impaired. He is alert and oriented to person, place and time. Insight and judgment are impaired. Impulse control is impaired. Vitals/I&O/Wt Last Vital Signs Temp 97.9 F 05/05/25 14:00 Pulse 85 05/05/25 14:00 Resp 18 05/05/25 14:00 BP 109/76 05/05/25 14:00 Pulse Ox 100 05/05/25 14:00 O2 Del Method Room Air 05/05/25 06:00 Weight last 48 hrs Weight 80.377 kg Data NPU 04/23/25 12:15 04/23/25 12:15 A&P Assessment and plan 1. Bipolar disorder: 2. Encephalopathy acute: 3. Alcohol use disorder: 4. Lumbar stenosis with neurogenic claudication: 5. Manic behavior: 6. Hx of Wernicke's encephalopathy: 7. Psychosis: 8. Cannabis use disorder: Plan: This is a 44-year-old white male with a reported long history of bipolar disorder with recent discharge 2 weeks prior from NPU with concerns about encephalopathy although not clear about Warnicke type. 1. Continue Seroquel xr 700mg at 6PM. Continue abilify 15mg daily. Increase depakote ER at 1500mg daily. Depakote level was 58.5. 2. Encourage individual, group and milieu therapy. 3. Continue every 15 minute checks for safety. 4. Encourage sober living treatment after discharge at the highest level of care to which she is willing to commit. 5. Patient needs MRI and LP to complete workup for psychosis and encephalopathy. Will confirm the particular labs to be ordered from LP. Patient continues to have a fluctuating course of consciousness and illness with periods of increased flight of ideas and increased psychomotor activity in unpredictable manner. Court hearing for 21-day hold earlier today and he was placed on a hold. PDMP PDMP Reviewed: Not Reviewed Involuntary Hold Information 2 Hold Status: Legal Status: 96 Hour Hold Date/Time Hold Expires: 05/24/2025 Attestations NPU 2 Medical Necessity Statement*: Inpatient hospitalization is medically necessary and the clinically appropriate intervention at this time. We will monitor medications and make changes as indicated. The patient's likely length of stay is 7-10 days. Coding Level of Care Code Acute Code for [facility] Fwd Diagnoses Bipolar disorder F31.9 Encephalopathy acute G93.40 Alcohol use disorder F10.90 Lumbar stenosis with neurogenic claudication M48.062 Manic behavior F30.10 Hx of Wernicke's encephalopathy Z86.39 Psychosis F29 Cannabis use disorder F12.90
[2025-05-05] MEDS: quetiapine XR (24HR) 50 mg Tablet 100 MG PO (17:46)
[2025-05-05] MEDS: quetiapine XR (24HR) 300 mg Tablet 600 MG PO (17:46)
[2025-05-05 20:13] VITALS: BP 123/85; PULSE 102; RESP 17; TEMP 36.4; O2SAT 100
[2025-05-06 06:00] VITALS: BP 115/77; PULSE 89; RESP 18; O2SAT 98
[2025-05-06] MEDS: divalproex ER 250 mg Tablet (24H) PO (08:09)
[2025-05-06] MEDS: divalproex ER 500 mg Tablet (24H) 1000 MG PO (08:09)
[2025-05-06] MEDS: HYDROcodone-acetaminophen 5-325 mg Tablet 1 TAB PO (09:12)
--- NOTE | 2025-05-06 09:30 | MR_ITS ---
WS: [id number] MRA ANGIOGRAPHY [place] HISTORY: neurological symptoms COMPARISON: MRI brain 03/07/2025 TECHNIQUE: 3-D MR angiography is performed of the [place]. All images are reviewed including source images. Distal vertebral arteries were not included on this examination. Imaging started in the basilar artery. Visualized basilar artery is normal. Posterior cerebral arteries are normal. Small caliber but patent posterior communicating arteries. Intracranial portion of the internal carotid arteries are normal course and caliber. No significant atherosclerosis, stenosis or aneurysm identified. Middle and anterior cerebral arteries are both patent with no significant disease. Anterior communicating artery is also normal. MR/MR angio head wo con [id number] IMPRESSION: Normal MRA [place].
[2025-05-06 14:00] VITALS: BP 125/73; PULSE 103; RESP 16; TEMP 36.6; O2SAT 93
[2025-05-06] MEDS: lactulose oral liq 20 gm/30 mL UDC PO (14:08)
--- NOTE | 2025-05-06 16:59 | P.NPUPN_ITS ---
Subjective NPU 2 Subjective: Patient presented today reporting that he is doing fine. No changes in his behavioral pattern per staff reports and direct observation with continued dysarthria and mumbling and without clear direction to his behavior or statements. He is clear that we are working on getting an LP but was continuing to focus on being able to leave. He denied any side effects to his medication. Mental Status Exam 2 MSE Comments: This is a well-nourished well-developed white male in hospital scrubs with adequate grooming and fair eye contact with some tattoos on both arms. There continued to be increased psychomotor activation. There was no abnormal involuntary motor movements appreciated today with no shuffling gait. He was cooperative with exam in mild distress. Speech is pressured with normal volume but continued evidence of dysarthria. Mood described as okay His affect was flat. Thought process was tangential with evidence of flight of ideas. Thought content: Patient denied suicidal or homicidal ideation. There were no delusions reported with no magical thinking appreciated. He did not appear to be responding to internal stimuli. Attention and concentration were limited and his recent and remote memory appeared impaired. He is alert and oriented to person, place and time. Insight and judgment are impaired. Impulse control is impaired. Vitals/I&O/Wt Last Vital Signs Temp 97.6 F 05/05/25 20:13 Pulse 89 05/06/25 06:00 Resp 18 05/06/25 06:00 BP 115/77 05/06/25 06:00 Pulse Ox 98 05/06/25 06:00 O2 Del Method Room Air 05/06/25 06:00 Weight last 48 hrs Weight 80.377 kg Data NPU 04/23/25 12:15 04/23/25 12:15 A&P Assessment and plan 1. Bipolar disorder: 2. Encephalopathy acute: 3. Alcohol use disorder: 4. Lumbar stenosis with neurogenic claudication: 5. Manic behavior: 6. Hx of Wernicke's encephalopathy: 7. Psychosis: 8. Cannabis use disorder: Plan: This is a 44-year-old white male with a reported long history of bipolar disorder with recent discharge 2 weeks prior from NPU with concerns about encephalopathy although not clear about Warnicke type. 1. Continue Seroquel xr 700mg at 6PM. Continue abilify 15mg daily. Increase depakote ER at 1500mg daily. Depakote level was 58.5. 2. Encourage individual, group and milieu therapy. 3. Continue every 15 minute checks for safety. 4. Encourage sober living treatment after discharge at the highest level of care to which she is willing to commit. 5. Patient needs MRI and LP to complete workup for psychosis and encephalopathy. Will confirm the particular labs to be ordered from LP. Patient continues to have a fluctuating course of consciousness and illness with periods of increased flight of ideas and increased psychomotor activity in unpredictable manner. Court hearing for 21-day hold earlier today and he was placed on a hold. Had MRI this morning 05/06/2025. PDMP PDMP Reviewed: Not Reviewed Involuntary Hold Information 2 Hold Status: Legal Status: 96 Hour Hold Date/Time Hold Expires: 05/24/2025 Attestations NPU 2 Medical Necessity Statement*: Inpatient hospitalization is medically necessary and the clinically appropriate intervention at this time. We will monitor medications and make changes as indicated. The patient's likely length of stay is 6-9 days. Coding Level of Care Code Acute Code for [facility] Fwd Diagnoses Bipolar disorder F31.9 Encephalopathy acute G93.40 Alcohol use disorder F10.90 Lumbar stenosis with neurogenic claudication M48.062 Manic behavior F30.10 Hx of Wernicke's encephalopathy Z86.39 Psychosis F29 Cannabis use disorder F12.90
[2025-05-06 19:39] VITALS: BP 121/82; PULSE 105; RESP 18; TEMP 36.5; O2SAT 99
[2025-05-06] MEDS: quetiapine XR (24HR) 50 mg Tablet 100 MG PO (19:46)
[2025-05-06] MEDS: quetiapine XR (24HR) 300 mg Tablet 600 MG PO (19:48)
[2025-05-07 06:00] VITALS: BP 121/74; PULSE 77; RESP 16; O2SAT 98
[2025-05-07] MEDS: divalproex ER 500 mg Tablet (24H) 1000 MG PO (08:20)
[2025-05-07] MEDS: divalproex ER 250 mg Tablet (24H) PO (08:20)
[2025-05-07] MEDS: HYDROcodone-acetaminophen 5-325 mg Tablet 1 TAB PO ×2 (08:23→18:21)
[2025-05-07 14:00] VITALS: BP 138/74; PULSE 84; RESP 18; TEMP 36.4; O2SAT 99
[2025-05-07] MEDS: quetiapine XR (24HR) 300 mg Tablet 600 MG PO (17:34)
[2025-05-07] MEDS: quetiapine XR (24HR) 50 mg Tablet 100 MG PO (17:34)
--- NOTE | 2025-05-07 17:50 | P.NPUPN_ITS ---
Subjective NPU 2 Subjective: Patient presented today reporting that he is fine. Continue to wander and moderate things aimlessly without real direction. We discussed we are working on getting his LP and waiting the and was hoping to find out additional results. He denied any side effects of medication. Mental Status Exam 2 MSE Comments: This is a well-nourished well-developed white male in hospital scrubs with adequate grooming and fair eye contact with some tattoos on both arms. There continued to be increased psychomotor activation. There was no abnormal involuntary motor movements appreciated today with no shuffling gait. He was cooperative with exam in mild distress. Speech is pressured with normal volume but continued evidence of dysarthria. Mood described as okay His affect was flat. Thought process was tangential with evidence of flight of ideas. Thought content: Patient denied suicidal or homicidal ideation. There were no delusions reported with no magical thinking appreciated. He did not appear to be responding to internal stimuli. Attention and concentration were limited and his recent and remote memory appeared impaired. He is alert and oriented to person, place and time. Insight and judgment are impaired. Impulse control is impaired. Vitals/I&O/Wt Last Vital Signs Temp 98.0 F 05/07/25 19:17 Pulse 102 H 05/07/25 19:17 Resp 16 05/07/25 19:17 BP 121/86 05/07/25 19:17 Pulse Ox 97 05/07/25 19:17 O2 Del Method Room Air 05/07/25 19:17 Data NPU 04/23/25 12:15 04/23/25 12:15 A&P Assessment and plan 1. Bipolar disorder: 2. Encephalopathy acute: 3. Alcohol use disorder: 4. Lumbar stenosis with neurogenic claudication: 5. Manic behavior: 6. Hx of Wernicke's encephalopathy: 7. Psychosis: 8. Cannabis use disorder: Plan: This is a 44-year-old white male with a reported long history of bipolar disorder with recent discharge 2 weeks prior from NPU with concerns about encephalopathy although not clear about Warnicke type. 1. Continue Seroquel xr 700mg at 6PM. Continue abilify 15mg daily. Increase depakote ER at 1500mg daily. Depakote level was 58.5. 2. Encourage individual, group and milieu therapy. 3. Continue every 15 minute checks for safety. 4. Encourage sober living treatment after discharge at the highest level of care to which she is willing to commit. 5. Patient needs MRI and LP to complete workup for psychosis and encephalopathy. Will confirm the particular labs to be ordered from LP. Patient continues to have a fluctuating course of consciousness and illness with periods of increased flight of ideas and increased psychomotor activity in unpredictable manner. Court hearing for 21-day hold earlier today and he was placed on a hold. Had MRI this morning 05/06/2025. PDMP PDMP Reviewed: Not Reviewed Involuntary Hold Information 2 Hold Status: Legal Status: 96 Hour Hold Date/Time Hold Expires: 05/24/2025 Attestations NPU 2 Medical Necessity Statement*: Inpatient hospitalization is medically necessary and the clinically appropriate intervention at this time. We will monitor medications and make changes as indicated. The patient's likely length of stay is 5-8 days. Coding Level of Care Code Acute Code for [facility] Fwd Diagnoses Bipolar disorder F31.9 Encephalopathy acute G93.40 Alcohol use disorder F10.90 Lumbar stenosis with neurogenic claudication M48.062 Manic behavior F30.10 Hx of Wernicke's encephalopathy Z86.39 Psychosis F29 Cannabis use disorder F12.90
[2025-05-07 19:17] VITALS: BP 121/76; PULSE 102; RESP 16; TEMP 36.7; O2SAT 97
[2025-05-08 05:02] VITALS: BP 117/86; PULSE 109; RESP 17; O2SAT 100
--- NOTE | 2025-05-08 05:55 | PC.NURSE ---
pt scrubs pt has had to be reminded multiple times last night/ this am to wear his green scrub top out in the hallway.
[2025-05-08] MEDS: divalproex ER 250 mg Tablet (24H) PO (09:24)
[2025-05-08] MEDS: divalproex ER 500 mg Tablet (24H) 1000 MG PO (09:24)
--- NOTE | 2025-05-08 12:54 | P.NPUPN_ITS ---
Subjective NPU 2 Subjective: Patient presented today reporting that things are going okay. He continued to have his struggles per staff reports and direct observation. He continues to demonstrate the findings of the THOMAS which was that he needs significant oversight per staff report and direct observation. He is prepared and open to having the LP and denied any side effects of his medication. Mental Status Exam 2 MSE Comments: This is a well-nourished well-developed white male in hospital scrubs with adequate grooming and fair eye contact with some tattoos on both arms. There continued to be increased psychomotor activation. There was no abnormal involuntary motor movements appreciated today with no shuffling gait. He was cooperative with exam in mild distress. Speech is pressured with normal volume but continued evidence of dysarthria. Mood described as okay His affect was flat. Thought process was tangential with evidence of flight of ideas. Thought content: Patient denied suicidal or homicidal ideation. There were no delusions reported with no magical thinking appreciated. He did not appear to be responding to internal stimuli. Attention and concentration were limited and his recent and remote memory appeared impaired. He is alert and oriented to person, place and time. Insight and judgment are impaired. Impulse control is impaired. Vitals/I&O/Wt Last Vital Signs Temp 98.0 F 05/07/25 19:17 Pulse 109 H 05/08/25 05:02 Resp 17 05/08/25 05:02 BP 117/86 05/08/25 05:02 Pulse Ox 100 05/08/25 05:02 O2 Del Method Room Air 05/08/25 05:02 Data NPU 04/23/25 12:15 04/23/25 12:15 A&P Assessment and plan 1. Bipolar disorder: 2. Encephalopathy acute: 3. Alcohol use disorder: 4. Lumbar stenosis with neurogenic claudication: 5. Manic behavior: 6. Hx of Wernicke's encephalopathy: 7. Psychosis: 8. Cannabis use disorder: Plan: This is a 44-year-old white male with a reported long history of bipolar disorder with recent discharge 2 weeks prior from NPU with concerns about encephalopathy although not clear about Warnicke type. 1. Continue Seroquel xr 700mg at 6PM. Continue abilify 15mg daily. Increase depakote ER at 1500mg daily. Depakote level was 58.5. 2. Encourage individual, group and milieu therapy. 3. Continue every 15 minute checks for safety. 4. Encourage sober living treatment after discharge at the highest level of care to which she is willing to commit. 5. Patient needs MRI and LP to complete workup for psychosis and encephalopathy. Will confirm the particular labs to be ordered from LP. Patient continues to have a fluctuating course of consciousness and illness with periods of increased flight of ideas and increased psychomotor activity in unpredictable manner. Court hearing for 21-day hold earlier today and he was placed on a hold. Had MRI this morning 05/06/2025. Working with radiology for possible LP. PDMP PDMP Reviewed: Not Reviewed Involuntary Hold Information 2 Hold Status: Legal Status: 96 Hour Hold Date/Time Hold Expires: 05/24/2025 Attestations NPU 2 Medical Necessity Statement*: Inpatient hospitalization is medically necessary and the clinically appropriate intervention at this time. We will monitor medications and make changes as indicated. The patient's likely length of stay is 5-8 days. Coding Level of Care Code Acute Code for [facility] Fwd Diagnoses Bipolar disorder F31.9 Encephalopathy acute G93.40 Alcohol use disorder F10.90 Lumbar stenosis with neurogenic claudication M48.062 Manic behavior F30.10 Hx of Wernicke's encephalopathy Z86.39 Psychosis F29 Cannabis use disorder F12.90
[2025-05-08 14:00] VITALS: BP 120/76; PULSE 114; RESP 16; TEMP 36.5; O2SAT 100
[2025-05-08] MEDS: HYDROcodone-acetaminophen 5-325 mg Tablet 1 TAB PO (14:12)
[2025-05-08] MEDS: quetiapine XR (24HR) 50 mg Tablet 100 MG PO (17:47)
[2025-05-08] MEDS: quetiapine XR (24HR) 300 mg Tablet 600 MG PO (17:47)
--- NOTE | 2025-05-08 18:29 | PC.NURSE ---
Dr. Mcghee gave permission for pt's to visit out of the visiting hours. Pt's brought in a medication for the pt and was given permission to sit with her for a moment on the unit.
[2025-05-08] MEDS: NADOLOL 40 MG 40 EACH PO (19:00)
[2025-05-08 19:57] VITALS: BP 118/81; PULSE 96; RESP 18; TEMP 36.8; O2SAT 97
[2025-05-09 06:00] VITALS: BP 110/72; PULSE 71; RESP 16; TEMP 36.4; O2SAT 99
[2025-05-09] MEDS: divalproex ER 250 mg Tablet (24H) PO (08:19)
[2025-05-09] MEDS: divalproex ER 500 mg Tablet (24H) 1000 MG PO (08:19)
[2025-05-09] MEDS: NADOLOL 40 MG 40 EACH PO (08:20)
[2025-05-09] MEDS: HYDROcodone-acetaminophen 5-325 mg Tablet 1 TAB PO ×2 (08:25→20:53)
--- NOTE | 2025-05-09 12:54 | FL_ITS ---
WS: [id number] LUMBAR PUNCTURE UNDER FLUOROSCOPY: OBTAIN CSF FOR ANALYSIS HISTORY: Encephalopathy COMPARISON: None available. FLUOROSCOPY TIME: 1min [id number] # of spot films: 1 Procedure, complications, and risk and benefits explained to the patient. Consent was obtained. Recent laboratory work and medication are reviewed prior to procedure. Skin over the lumbar is cleansed with ChloraPrep and anesthetized with 1% buffered lidocaine. Access into the thecal sac is achieved. CSF is removed in a sterile manner and placed in the sterile tubes. Approximately 10-12 ml are removed without difficulty. No complications are encountered. CSF this into the laboratory for analysis as requested. FL/FL guided lumbarpunc dx* [id number] IMPRESSION: Uncomplicated lumbar puncture for CSF.
--- NOTE | 2025-05-09 13:01 | P.NPUPN_ITS ---
Subjective NPU 2 Subjective: Patient presented today reporting that he is okay. We discussed the fact that he would be getting his LP likely today and we continue to discuss the goals of this procedure and hopes that it might shed some light on what is going on or at least rule out concerning diagnoses on his differential diagnosis list. We discussed that we are continuing to be in communication with neurology about this process and that we will follow-up the labs as they come in. He continued to seem confused and aimless per staff reports and direct observation. Though he denied any side effects to the medication. Mental Status Exam 2 MSE Comments: This is a well-nourished well-developed white male in hospital scrubs with adequate grooming and fair eye contact with some tattoos on both arms. There continued to be increased psychomotor activation. There was no abnormal involuntary motor movements appreciated today with no shuffling gait. He was cooperative with exam in mild distress. Speech is pressured with normal volume but continued evidence of dysarthria. Mood described as okay His affect was flat. Thought process was tangential with evidence of flight of ideas. Thought content: Patient denied suicidal or homicidal ideation. There were no delusions reported with no magical thinking appreciated. He did not appear to be responding to internal stimuli. Attention and concentration were limited and his recent and remote memory appeared impaired. He is alert and oriented to person, place and time. Insight and judgment are impaired. Impulse control is impaired. Vitals/I&O/Wt Last Vital Signs Temp 97.6 F 05/09/25 06:00 Pulse 71 05/09/25 06:00 Resp 16 05/09/25 06:00 BP 110/72 05/09/25 06:00 Pulse Ox 99 05/09/25 06:00 O2 Del Method Room Air 05/09/25 06:00 Data NPU 04/23/25 12:15 04/23/25 12:15 A&P Assessment and plan 1. Bipolar disorder: 2. Encephalopathy acute: 3. Alcohol use disorder: 4. Lumbar stenosis with neurogenic claudication: 5. Manic behavior: 6. Hx of Wernicke's encephalopathy: 7. Psychosis: 8. Cannabis use disorder: Plan: This is a 44-year-old white male with a reported long history of bipolar disorder with recent discharge 2 weeks prior from NPU with concerns about encephalopathy although not clear about Warnicke type. 1. Continue Seroquel xr 700mg at 6PM. Continue abilify 15mg daily. Increase depakote ER at 1500mg daily. Depakote level was 58.5. 2. Encourage individual, group and milieu therapy. 3. Continue every 15 minute checks for safety. 4. Encourage sober living treatment after discharge at the highest level of care to which she is willing to commit. 5. Patient needs MRI and LP to complete workup for psychosis and encephalopathy. Will confirm the particular labs to be ordered from LP. Patient continues to have a fluctuating course of consciousness and illness with periods of increased flight of ideas and increased psychomotor activity in unpredictable manner. Court hearing for 21-day hold earlier today and he was placed on a hold. Had MRI this morning 05/06/2025. Working with radiology with plan for LP hopefully sometime today. PDMP PDMP Reviewed: Not Reviewed Involuntary Hold Information 2 Hold Status: Legal Status: 96 Hour Hold Date/Time Hold Expires: 05/24/2025 Attestations NPU 2 Medical Necessity Statement*: Inpatient hospitalization is medically necessary and the clinically appropriate intervention at this time. We will monitor medications and make changes as indicated. The patient's likely length of stay is 5-8 days. Coding Level of Care Code Acute Code for [facility] Fwd Diagnoses Bipolar disorder F31.9 Encephalopathy acute G93.40 Alcohol use disorder F10.90 Lumbar stenosis with neurogenic claudication M48.062 Manic behavior F30.10 Hx of Wernicke's encephalopathy Z86.39 Psychosis F29 Cannabis use disorder F12.90
[2025-05-09 14:00] VITALS: BP 125/77; PULSE 65; RESP 16; TEMP 37.1; O2SAT 96
[2025-05-09 15:00] LABS: Cyto Order Verification No Order
[2025-05-09 15:05] LABS: CSF Mononuclear # 0.003 10^3/uL (50-90); Mononuclear WBC CSF % 75 % (50-90); Polynuclear Cells ,CSF # 0.001 10^3/uL (0-10); Polynuclear WBC CSF % 25 % (0-10); Red Blood Cell CSF 0 10^3/uL (0-0); White Blood Cell CSF 4 /uL (0-5)
[2025-05-09 15:06] LABS: Pathology Referral Yes
[2025-05-09] MEDS: quetiapine XR (24HR) 300 mg Tablet 600 MG PO (17:23)
[2025-05-09] MEDS: quetiapine XR (24HR) 50 mg Tablet 100 MG PO (17:23)
[2025-05-09 22:00] VITALS: BP 101/69; PULSE 86; RESP 18; TEMP 36.6; O2SAT 98
[2025-05-09] MEDS: cetylpyridinium Lozenge 1 EACH MUCOUS MEM (22:18)
[2025-05-10 06:00] VITALS: BP 106/66; PULSE 62; RESP 18; TEMP 36.4; O2SAT 98
[2025-05-10] MEDS: divalproex ER 250 mg Tablet (24H) PO (08:03)
[2025-05-10] MEDS: NADOLOL 40 MG 40 EACH PO (08:03)
[2025-05-10] MEDS: divalproex ER 500 mg Tablet (24H) 1000 MG PO (08:04)
[2025-05-10] MEDS: HYDROcodone-acetaminophen 5-325 mg Tablet 1 TAB PO ×2 (08:08→21:20)
--- NOTE | 2025-05-10 08:55 | NUR.SHIFT ---
Pt states that he slept good last night. He denies anxiety and depression this am. No reports of SI/HI or hallucinations. He rates his low back pain a 4/10. He is calm and cooperative on assessment. Cont to mumble when he speaks and is very difficult to understand. I watched him eating breakfast as well and he struggles to swallow his food, but does well with taking small bites and taking his time as to not get choked.
[2025-05-10 14:00] VITALS: BP 128/60; PULSE 75; RESP 16; TEMP 36.6; O2SAT 97
--- NOTE | 2025-05-10 15:45 | PC.NURSE ---
Tito called and asked if we had got to weigh him. I let her know that it was 173# She stated that was 4# down from admission. She asked about his CSF studies being back in and I let her know they weren't and likely wouldn't be until the beginning of the week. She asked me if I could mention to Dr. Mcghee if it would be appropriate to have a tick panel ordered. This nurse let Dr. Mcghee know.
--- NOTE | 2025-05-10 16:07 | P.NPUPN_ITS ---
Subjective NPU 2 Subjective: Patient presents today reporting that he is feeling a little better. He discussed that he would come back after visiting his and would let it go. We continued to discussed the plan to get to the bottom of the situation first and if discharge is possible then it might occur. Will continue to discussed and where he is right now would not be safe to discharge him without some situation at his home where there was going to be 24-hour observation. We discussed the fact that some of the labs have come back with no clear indication of where to go at this point. He denied any side effects of the medication Mental Status Exam 2 MSE Comments: This is a well-nourished well-developed white male in hospital scrubs with adequate grooming and fair eye contact with some tattoos on both arms. There continued to be increased psychomotor activation. There was no abnormal involuntary motor movements appreciated today with no shuffling gait. He was cooperative with exam in mild distress. Speech is pressured with normal volume but continued evidence of dysarthria. Mood described as okay His affect was flat. Thought process was tangential with evidence of flight of ideas. Thought content: Patient denied suicidal or homicidal ideation. There were no delusions reported with no magical thinking appreciated. He did not appear to be responding to internal stimuli. Attention and concentration were limited and his recent and remote memory appeared impaired. He is alert and oriented to person, place and time. Insight and judgment are impaired. Impulse control is impaired. Vitals/I&O/Wt Last Vital Signs Temp 97.5 F L 05/10/25 06:00 Pulse 62 05/10/25 06:00 Resp 18 05/10/25 06:00 BP 106/66 05/10/25 06:00 Pulse Ox 98 05/10/25 06:00 O2 Del Method Room Air 05/10/25 06:00 Weight last 48 hrs Weight 78.471 kg Data NPU 04/23/25 12:15 04/23/25 12:15 A&P Assessment and plan 1. Bipolar disorder: 2. Encephalopathy acute: 3. Alcohol use disorder: 4. Lumbar stenosis with neurogenic claudication: 5. Manic behavior: 6. Hx of Wernicke's encephalopathy: 7. Psychosis: 8. Cannabis use disorder: Plan: This is a 44-year-old white male with a reported long history of bipolar disorder with recent discharge 2 weeks prior from NPU with concerns about encephalopathy although not clear about Warnicke type. 1. Continue Seroquel xr 700mg at 6PM. Continue abilify 15mg daily. Increase depakote ER at 1500mg daily. Depakote level was 58.5. 2. Encourage individual, group and milieu therapy. 3. Continue every 15 minute checks for safety. 4. Encourage sober living treatment after discharge at the highest level of care to which she is willing to commit. 5. Patient needs MRI and LP to complete workup for psychosis and encephalopathy. Will confirm the particular labs to be ordered from LP. Patient continues to have a fluctuating course of consciousness and illness with periods of increased flight of ideas and increased psychomotor activity in unpredictable manner. Court hearing for 21-day hold earlier today and he was placed on a hold. Had MRI this morning 05/06/2025. Working with radiology with plan for LP hopefully sometime today. PDMP PDMP Reviewed: Not Reviewed Involuntary Hold Information 2 Hold Status: Legal Status: 96 Hour Hold Date/Time Hold Expires: 05/24/2025 Attestations NPU 2 Medical Necessity Statement*: Inpatient hospitalization is medically necessary and the clinically appropriate intervention at this time. We will monitor medications and make changes as indicated. The patient's likely length of stay is 5-8 days. Coding Level of Care Code Acute Code for [facility] Fwd Diagnoses Bipolar disorder F31.9 Encephalopathy acute G93.40 Alcohol use disorder F10.90 Lumbar stenosis with neurogenic claudication M48.062 Manic behavior F30.10 Hx of Wernicke's encephalopathy Z86.39 Psychosis F29 Cannabis use disorder F12.90
[2025-05-10] MEDS: quetiapine XR (24HR) 300 mg Tablet 600 MG PO (17:10)
[2025-05-10] MEDS: quetiapine XR (24HR) 50 mg Tablet 100 MG PO (17:10)
[2025-05-10 19:36] VITALS: BP 106/63; PULSE 77; RESP 16; TEMP 36.4; O2SAT 96
[2025-05-10] MEDS: cetylpyridinium Lozenge 1 EACH MUCOUS MEM (23:01)
[2025-05-11 06:00] VITALS: BP 108/79; PULSE 72; RESP 16; TEMP 36.5; O2SAT 100
[2025-05-11] MEDS: HYDROcodone-acetaminophen 5-325 mg Tablet 1 TAB PO ×2 (06:26→17:22)
[2025-05-11] MEDS: NADOLOL 40 MG 40 EACH PO (08:42)
[2025-05-11] MEDS: divalproex ER 250 mg Tablet (24H) PO (08:43)
[2025-05-11] MEDS: divalproex ER 500 mg Tablet (24H) 1000 MG PO (08:43)
--- NOTE | 2025-05-11 08:45 | P.NPUPN_ITS ---
Subjective NPU 2 Subjective: Patient presenting today reporting that he tolerated the LP just fine. He did have some difficulty staying prone for the period time they wanted him to but he did much better than staff anticipated per reports. Otherwise he continues to lament over not being able to go home yet but is excepting that he needs to figure out what is going on. He denied any side effects to his medication. Mental Status Exam 2 MSE Comments: This is a well-nourished well-developed white male in hospital scrubs with adequate grooming and fair eye contact with some tattoos on both arms. There continued to be increased psychomotor activation. There was no abnormal involuntary motor movements appreciated today with no shuffling gait. He was cooperative with exam in mild distress. Speech is pressured with normal volume but continued evidence of dysarthria. Mood described as okay His affect was flat. Thought process was tangential with evidence of flight of ideas. Thought content: Patient denied suicidal or homicidal ideation. There were no delusions reported with no magical thinking appreciated. He did not appear to be responding to internal stimuli. Attention and concentration were limited and his recent and remote memory appeared impaired. He is alert and oriented to person, place and time. Insight and judgment are impaired. Impulse control is impaired. Vitals/I&O/Wt Last Vital Signs Temp 97.7 F 05/11/25 06:00 Pulse 72 05/11/25 06:00 Resp 16 05/11/25 06:00 BP 108/79 05/11/25 06:00 Pulse Ox 100 05/11/25 06:00 O2 Del Method Room Air 05/11/25 06:00 Weight last 48 hrs Weight 79.469 kg Weight 78.471 kg Data NPU 04/23/25 12:15 04/23/25 12:15 A&P Assessment and plan 1. Bipolar disorder: 2. Encephalopathy acute: 3. Alcohol use disorder: 4. Lumbar stenosis with neurogenic claudication: 5. Manic behavior: 6. Hx of Wernicke's encephalopathy: 7. Psychosis: 8. Cannabis use disorder: Plan: This is a 44-year-old white male with a reported long history of bipolar disorder with recent discharge 2 weeks prior from NPU with concerns about encephalopathy although not clear about Warnicke type. 1. Continue Seroquel xr 700mg at 6PM. Continue abilify 15mg daily. Increase depakote ER at 1500mg daily. Depakote level was 58.5. 2. Encourage individual, group and milieu therapy. 3. Continue every 15 minute checks for safety. 4. Encourage sober living treatment after discharge at the highest level of care to which she is willing to commit. 5. Patient needs MRI and LP to complete workup for psychosis and encephalopathy. Will confirm the particular labs to be ordered from LP. Patient continues to have a fluctuating course of consciousness and illness with periods of increased flight of ideas and increased psychomotor activity in unpredictable manner. Court hearing for 21-day hold earlier today and he was placed on a hold. Had MRI this morning 05/06/2025. Working with radiology and LP performed 05/09/2025. Elevated PMN in CSF. Awaiting remaining labs. PDMP PDMP Reviewed: Not Reviewed Involuntary Hold Information 2 Hold Status: Legal Status: 21 Day Hold Date/Time Hold Expires: 05/24/25 Attestations NPU 2 Medical Necessity Statement*: Inpatient hospitalization is medically necessary and the clinically appropriate intervention at this time. We will monitor medications and make changes as indicated. The patient's likely length of stay is 5-8 days. Coding Level of Care Code Acute Code for Chg Fwd Diagnoses Bipolar disorder F31.9 Encephalopathy acute G93.40 Alcohol use disorder F10.90 Lumbar stenosis with neurogenic claudication M48.062 Manic behavior F30.10 Hx of Wernicke's encephalopathy Z86.39 Psychosis F29 Cannabis use disorder F12.90
--- NOTE | 2025-05-11 09:15 | NUR.SHIFT ---
Pt states that he slept good last night. He denies anxiety and depression. There are no reports of SI/HI or hallucinations. He rates his back pain a 6/10 even after his medication. He is calm and cooperative on assessment. Pt is cont to be very difficult to understand when he talks. Still very garbled and mumbles.
[2025-05-11 13:59] VITALS: BP 112/75; PULSE 101; RESP 16; TEMP 36.6; O2SAT 100
[2025-05-11] MEDS: quetiapine XR (24HR) 300 mg Tablet 600 MG PO (17:17)
[2025-05-11] MEDS: quetiapine XR (24HR) 50 mg Tablet 100 MG PO (17:18)
[2025-05-11 20:06] VITALS: BP 111/74; PULSE 77; RESP 18; TEMP 36.3; O2SAT 98
[2025-05-12 06:00] VITALS: BP 119/78; PULSE 67; RESP 17; O2SAT 99
[2025-05-12] MEDS: blistex lip oint 7 gm Tube 1 APPLIC TOPICAL (06:42)
[2025-05-12] MEDS: divalproex ER 500 mg Tablet (24H) 1000 MG PO (07:17)
[2025-05-12] MEDS: divalproex ER 250 mg Tablet (24H) PO (07:17)
[2025-05-12] MEDS: NADOLOL 40 MG 40 EACH PO (08:32)
[2025-05-12] MEDS: HYDROcodone-acetaminophen 5-325 mg Tablet 1 TAB PO ×2 (08:40→20:23)
[2025-05-12 14:00] VITALS: BP 111/72; PULSE 78; RESP 17; TEMP 36.6; O2SAT 100
--- NOTE | 2025-05-12 14:30 | P.NPUPN_ITS ---
Subjective NPU 2 Subjective: Patient presented today reporting good mood doing okay. We discussed the risks, benefits and alternatives of initiating a hospitalist consult to see if there are any ideas that they might have in relation to any areas of investigation that might be indicated by the LP findings thus far given his continued odd presentation. And he understood and agreed to proceed as is documented in this note. Will continue to communicate with his about the findings and she inquired about tick illness but without any clear indication of tick infestation or bite. He did not report any side effects to his medication. Mental Status Exam 2 MSE Comments: This is a well-nourished well-developed white male in hospital scrubs with adequate grooming and fair eye contact with some tattoos on both arms. There continued to be increased psychomotor activation. There was no abnormal involuntary motor movements appreciated today with no shuffling gait. He was cooperative with exam in mild distress. Speech is pressured with normal volume but continued evidence of dysarthria. Mood described as okay His affect was flat. Thought process was tangential with evidence of flight of ideas. Thought content: Patient denied suicidal or homicidal ideation. There were no delusions reported with no magical thinking appreciated. He did not appear to be responding to internal stimuli. Attention and concentration were limited and his recent and remote memory appeared impaired. He is alert and oriented to person, place and time. Insight and judgment are impaired. Impulse control is impaired. Vitals/I&O/Wt Last Vital Signs Temp 97.3 F L 05/11/25 20:06 Pulse 67 05/12/25 06:00 Resp 17 05/12/25 06:00 BP 119/78 05/12/25 06:00 Pulse Ox 99 05/12/25 06:00 O2 Del Method Room Air 05/12/25 06:00 Weight last 48 hrs Weight 79.469 kg Data NPU 04/23/25 12:15 04/23/25 12:15 A&P Assessment and plan 1. Bipolar disorder: 2. Encephalopathy acute: 3. Alcohol use disorder: 4. Lumbar stenosis with neurogenic claudication: 5. Manic behavior: 6. Hx of Wernicke's encephalopathy: 7. Psychosis: 8. Cannabis use disorder: Plan: This is a 44-year-old white male with a reported long history of bipolar disorder with recent discharge 2 weeks prior from NPU with concerns about encephalopathy although not clear about Warnicke type. 1. Continue Seroquel xr 700mg at 6PM. Continue abilify 15mg daily. Increase depakote ER at 1500mg daily. Depakote level was 58.5. 2. Encourage individual, group and milieu therapy. 3. Continue every 15 minute checks for safety. 4. Encourage sober living treatment after discharge at the highest level of care to which she is willing to commit. 5. Patient needs MRI and LP to complete workup for psychosis and encephalopathy. Will confirm the particular labs to be ordered from LP. Patient continues to have a fluctuating course of consciousness and illness with periods of increased flight of ideas and increased psychomotor activity in unpredictable manner. Court hearing for 21-day hold earlier today and he was placed on a hold. Had MRI this morning 05/06/2025. Working with radiology and LP performed 05/09/2025. Elevated PMN in CSF. Awaiting remaining labs. 6. Ordered hospitalist consult to take a look at whether there are any other areas of investigation that the current things from the LP might suggest including take disease to her some other rare but possible condition. Will monitor findings and follow recommendations as indicated. PDMP PDMP Reviewed: Not Reviewed Involuntary Hold Information 2 Hold Status: Legal Status: 21 Day Hold Date/Time Hold Expires: 05/24/25 Attestations NPU 2 Medical Necessity Statement*: Inpatient hospitalization is medically necessary and the clinically appropriate intervention at this time. We will monitor medications and make changes as indicated. The patient's likely length of stay is 5-8 days. Coding Level of Care Code Acute Code for [facility] Fwd Diagnoses Bipolar disorder F31.9 Encephalopathy acute G93.40 Alcohol use disorder F10.90 Lumbar stenosis with neurogenic claudication M48.062 Manic behavior F30.10 Hx of Wernicke's encephalopathy Z86.39 Psychosis F29 Cannabis use disorder F12.90
--- NOTE | 2025-05-12 15:31 | P.CONIM_ITS ---
Providers/Reason For Consult 2 Consulting Physician/Specialty*: Psychiatry Reason for Consult*: Encephalopathy Attending Physician: Roque Nieves MD History of Present Illness History of Present Illness Kareem Dunaway is a 44 year old male with a past medical history of alcoholism, concerns for Warnicke's encephalopathy, bipolar disorder, hypertension, who was admitted to [facility], neuropsychiatric unit, for alcohol use disorder, manic behavior, psychosis, just acute encephalopathy. 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, he is , he does have biological kids, he does not know their names, but he is able to name off his 's biological kids, he denies any headache, blurry vision, no nausea, no vomiting, no lightheadedness, no dizziness, does report a family history of pancreatic cancer in his father, mother had metastatic breast cancer, denies any personal history of cancer, no weight loss Review of Systems 2 Card: Denies: chest pain Resp: Denies: dyspnea GI: Denies: abdominal pain : Denies: flank pain Neuro: Denies: headache(s), numbness in extremities or weakness in extremities Medications/Allergies Home Medications ?Medication ?Instructions ?Recorded ?Confirmed ?Last Taken ?Type hydrocodone 5 mg-acetaminophen 325 1 tab PO Q6H PRN Pa in 12/20/24 04/23/25 04/22/25 21:00 History mg tablet aripiprazole 15 mg tablet 15 mg PO DAILY 30 days #30 t abs 04/10/25 04/23/25 04/23/25 Rx benztropine 1 mg tablet 1 mg PO BID 30 days #60 tabs 04/10/25 04/23/25 04/23/25 Rx chlorthalidone 25 mg tablet 25 mg PO DAILY 30 days #30 tabs 04/10/25 04/23/25 04/23/25 Rx clonazepam 1 mg tablet 2 mg (2 x 1 mg) PO BEDTIME 3 0 days 04/10/25 04/23/25 04/23/25 Rx #30 tabs divalproex 500 mg tablet,extended 1,000 mg (2 x 500 mg ) PO 0800 30 04/10/25 04/23/25 04/23/25 08:00 Rx release 24 hr days #60 tabs nadolol 40 mg tablet 40 mg PO DAILY 30 days #30 t abs 04/10/25 04/23/25 Unknown Rx pantoprazole 40 mg tablet,delayed 40 mg PO DAILY 30 da ys #30 tabs 04/10/25 04/23/25 04/23/25 Rx release quetiapine 400 mg tablet,extended 400 mg PO 1800 30 da ys #30 tabs 04/10/25 04/23/25 04/22/25 19:00 Rx release 24 hr thiamine mononitrate (vit B1) 100 200 mg (2 x 100 mg) PO DAILY 30 04/10/25 04/23/25 04/23/25 08:00 Rx mg tablet (Vitamin B-1 days #60 tabs (mononitrate)) Allergies Allergy/AdvReac Type Severity Reaction Status Date / Time haloperidol (From Haldol) Allergy ADR-Seizure Verified 04/17/25 08:38 risperidone (From Risperdal) Allergy ALGY-Anaphy Verified 04/17/25 08:38 laxis Current Medications Generic Name Dose Route Start Last Admin Trade Name Freq PRN Reason Stop Dose Admin Hydrocodone Bitart/Acetaminophen 1 tab 04/23/25 15:48 05/12/25 08:40 Hydrocodone-Acetaminophen 5-325 Mg Tablet PO 1 tab Q6H PRN Administration PAIN Aripiprazole 15 mg 04/24/25 09:00 05/12/25 08:33 Aripiprazole 30 Mg Tablet PO 15 mg DAILY CORRIE Administration Artificial Tears 1 drop 04/30/25 04:27 04/30/25 04:39 Artificial Tears Op Soln 15 Ml Btl EYE-BOTH 1 drop Q4H PRN Administration DRY EYE(S) Benzocaine 1 each 04/29/25 20:19 05/10/25 23:01 Cetylpyridinium Lozenge MUCOUS MEM 1 each Q2H PRN Administration SORE THROAT Benztropine Mesylate 1 mg 04/23/25 13:46 04/24/25 17:18 Benztropine 1 Mg Tablet PO 1 mg BID PRN Administration Mild Extrapyramidal symptoms Benztropine Mesylate 1 mg 04/23/25 18:00 05/12/25 08:32 Benztropine 1 Mg Tablet PO 1 mg BID CORRIE Administration Camphor/Menthol/Phenol 1 applic 04/23/25 13:46 05/12/25 06:42 Blistex Lip Oint 7 Gm Tube TOPICAL 1 applic Q1H PRN Administration DRYNESS Chlorthalidone 25 mg 04/24/25 09:00 05/12/25 08:32 Chlorthalidone 25 Mg Tablet PO 25 mg DAILY CORRIE Administration Clonazepam 2 mg 04/23/25 21:00 05/11/25 21:50 Clonazepam 1 Mg Tablet PO 2 mg BEDTIME CORRIE Administration Diphenhydramine HCl 50 mg 04/23/25 13:46 04/29/25 16:31 Diphenhydramine 50 Mg/Ml Sdv 1ml IM 50 mg ONCE PRN Administration Severe Extrapyramidal Symptoms Diphenhydramine HCl 50 mg 04/23/25 13:46 04/26/25 20:19 Diphenhydramine 50 Mg/Ml Sdv 1ml IM 50 mg Q4H PRN Administration Severe Aggression Divalproex Sodium 1,000 mg 04/28/25 08:00 05/12/25 07:17 Divalproex Er 500 Mg Tablet (24h) PO 1,000 mg 0800 CORRIE Administration Divalproex Sodium 250 mg 04/28/25 08:00 05/12/25 07:17 Divalproex Er 250 Mg Tablet (24h) PO 250 mg 0800 CORRIE Administration Docusate Sodium 200 mg 05/02/25 18:44 05/07/25 20:27 Docusate Sodium 100 Mg Capsule PO 200 mg PRN PRN Administration CONSTIPATION Hydroxyzine Pamoate 50 mg 04/23/25 13:46 05/11/25 21:50 Hydroxyzine 25 Mg Capsule PO 50 mg Q6H PRN Administration ANXIETY Ibuprofen 600 mg 04/23/25 13:47 05/11/25 21:51 Ibuprofen 600 Mg Tablet PO 600 mg Q6H PRN Administration MODERATE PAIN Lactulose 20 gm 05/04/25 19:10 05/06/25 14:08 Lactulose Oral Liq 20 Gm/30 Ml Udc PO 20 gm BID PRN Administration CONSTIPATION Lorazepam 2 mg 04/23/25 13:46 04/29/25 16:31 Lorazepam 1 Mg/0.5 Ml Injection IM 2 mg Q4H PRN Administration Severe Aggression Nicotine 1 patch 04/23/25 13:46 05/12/25 10:25 Nicotine 21 Mg Patch TRANSDERMA 1 patch DAILY PRN Administration NICOTINE WITHDRAWAL Nicotine Polacrilex 2 mg 04/23/25 13:46 05/12/25 12:58 Nicotine 2 Mg Gum BUCCAL 2 mg Q2H PRN Administration NICOTINE WITHDRAWAL Nicotine Polacrilex 4 mg 04/23/25 13:47 05/12/25 08:00 Nicotine 4 Mg Lozenge MUCOUS MEM 4 mg Q2H PRN Administration NICOTINE CRAVINGS Non-Formulary Medication 40 mg 05/08/25 19:00 05/12/25 08:32 Nadolol PO 40 mg DAILY CORRIE Administration Olanzapine 5 mg 04/23/25 13:46 05/11/25 21:51 Olanzapine 5 Mg Odt PO 5 mg Q4H PRN Administration Agitation/Psychosis Pantoprazole Sodium 40 mg 04/24/25 09:00 05/12/25 08:[address] 40 Mg Tablet PO 40 mg DAILY CORRIE Administration Quetiapine Fumarate 600 mg 04/30/25 18:00 05/11/25 17:17 Quetiapine Xr (24hr) 300 Mg Tablet PO 600 mg 1800 CORRIE Administration Quetiapine Fumarate 100 mg 04/30/25 18:00 05/11/25 17:18 Quetiapine Xr (24hr) 50 Mg Tablet PO 100 mg 1800 CORRIE Administration Thiamine Mononitrate 200 mg 04/24/25 09:00 05/12/25 08:33 Thiamine 100 Mg Tablet PO 200 mg DAILY CORRIE Administration Trazodone HCl 50 mg 04/23/25 13:46 05/11/25 21:50 Trazodone 50 Mg Tablet PO 50 mg BEDTIME PRN Administration SLEEP PFSH Acute 2 PFSH: Medical History (Updated 04/23/25 @ 12:35 by NIKHIL Finley) Psychiatric care Social History Smoking and tobacco/nicotine status: never used tobacco/nicotine Vitals/I&O/Wt Last Vital Signs Temp 97.9 F 05/12/25 14:00 Pulse 78 05/12/25 14:00 Resp 17 05/12/25 14:00 BP 111/72 05/12/25 14:00 Pulse Ox 100 05/12/25 14:00 O2 Del Method Room Air 05/12/25 06:00 Weight last 48 hrs Weight 79.469 kg Physical Exam 2 Const: COMMON NORMALS: no acute distress ORIENTATION/CONSCIOUSNESS: Yes awake, Yes oriented to person and Yes oriented to place HENMT: COMMON NORMALS: normocephalic HEAD & SCALP: normocephalic Eye: COMMON NORMALS: Equal, round and reactive pupils present PUPIL: Yes Equal, round and reactive pupils present Lymph: LYMPHATIC: no lymphadenopathy noted Resp: COMMON NORMALS: normal respiratory effort, No retractions, No use of accessory muscles and clear to auscultation bilaterally AUSCULTATION: clear to auscultation bilaterally Cardio: COMMON NORMALS: regular rate, regular rhythm, S1 normal heart sound present and S2 normal heart sound present RATE: regular rate RHYTHM: r egular rhythm HEART SOUNDS: S1 normal heart sound present and S2 normal heart sound present GI: COMMON NORMALS: Normal to inspection, nondistended, normoactive bowel sounds present and non-tender Extremity: COMMON NORMALS: no calf tenderness and no pedal edema Neuro: COMMON NORMALS: CN's II-XII intact bilaterally, moves all extremities and no focal motor deficits SENSORIUM/ORIENTATION: Yes oriented to person and Yes oriented to place Psych: COMMON NORMALS: mental status grossly normal Data 04/23/25 12:15 04/23/25 12:15 A&P Assessment and plan 1. Encephalopathy acute: Plan: Acute encephalopathy - History of Wernicke's encephalopathy -Dr. Mcghee reports that he has received high-dose thiamine for concerns for Warnicke's encephalopathy - MRI brain from [facility] report negative exam - MRA brain within normal limits - CSF clear, colorless, 4 WBCs, 61 glucose, total protein 35 - Will order Gram stain and culture - Repeat CBC, CRP, sed rate, TSH, CRP, RPR - Monitor mentation PDMP PDMP Reviewed: Not Reviewed Consult Attestations 2 Medical Necessity Statement: Patient requires hospitalization for acute encephalopathy Diagnoses Encephalopathy acute G93.40
[2025-05-12 15:59] LABS: Hematocrit 45.0 % (37-53); Hemoglobin 15.10 g/dL (11.27-16.99); Mean Corpuscular HGB Conc 33.6 g/dL (30-55); Mean Corpuscular Hemoglobin 29.7 pg (27-33); Mean Corpuscular Volume 88.6 fl (82-101); Nucleated Red Blood Cells % 0 %; Platelet Count 194 10^3/cmm (157-399); Red Blood Count 5.08 10^6/uL (3.85-5.65); White Blood Count 8.23 10^3/uL (3.29-11.43)
[2025-05-12 16:22] LABS: Ammonia 33 umol/L (16-60)
[2025-05-12 16:27] LABS: Procalcitonin 0.03 ng/mL (0-0.5); Thyroid Stimulating Hormone 2.42 uIU/mL (0.27-4.20)
[2025-05-12 16:29] LABS: HIV 1 & 2 Antigen Non-Reactive (Non-Reactiv)
[2025-05-12 16:38] LABS: Alanine Aminotransferase 13 U/L (0-41); Albumin Level 4.6 g/dL (3.5-5.2); Alkaline Phosphatase 92 U/L (40-130); Anion Gap 14.9 (5-19); Aspartate Amino Transferase 18 U/L (0-40); Blood Urea Nitrogen 16 mg/dL (6-20); Calcium 9.8 mg/dL (8.5-10.5); Carbon Dioxide 30 mmol/L (22-29); Chloride 96 mmol/L (98-107); Creatinine Clr Calc Pharmacy 137.9956; Globulin 3.2 g/dL (1.3-4.6); Glucose 95 mg/dL (65-115); Osmolality Calculated 285 mOsm/kg (285-295); Potassium 3.9 mmol/L (3.5-5.1); Sodium 137 mmol/L (136-145); Total Protein 7.8 g/dL (6.6-8.7)
[2025-05-12 16:40] LABS: Rapid Plasma Reagin Syphilis Nonreactive (Nonreactive)
[2025-05-12] MEDS: quetiapine XR (24HR) 50 mg Tablet 100 MG PO (17:21)
[2025-05-12] MEDS: quetiapine XR (24HR) 300 mg Tablet 600 MG PO (17:21)
[2025-05-12 20:10] VITALS: BP 109/68; PULSE 71; RESP 18; TEMP 36.7; O2SAT 96
--- NOTE | 2025-05-13 06:38 | PC.NURSE ---
vs not collected resp 18 charge notified
[2025-05-13] MEDS: divalproex ER 500 mg Tablet (24H) 1000 MG PO (08:12)
[2025-05-13] MEDS: divalproex ER 250 mg Tablet (24H) PO (08:12)
[2025-05-13] MEDS: NADOLOL 40 MG 40 EACH PO (08:16)
[2025-05-13] MEDS: HYDROcodone-acetaminophen 5-325 mg Tablet 1 TAB PO ×2 (08:37→17:40)
--- NOTE | 2025-05-13 13:07 | P.NPUPN_ITS ---
Subjective NPU 2 Subjective: Patient presented today reporting he is doing fine. He continues to bring up possible hopes of discharge. Otherwise he denied any issues. He continues to await laboratory studies returning and we discussed needing those results to make further conclusions. We discussed the Dr. Gasca and neurology will be heading this week to evaluate him and the results. He denied any side effects of his medication. Mental Status Exam 2 MSE Comments: This is a well-nourished well-developed white male in hospital scrubs with adequate grooming and fair eye contact with some tattoos on both arms. There continued to be increased psychomotor activation. There was no abnormal involuntary motor movements appreciated today with no shuffling gait. He was cooperative with exam in mild distress. Speech is pressured with normal volume but continued evidence of dysarthria. Mood described as okay His affect was flat. Thought process was tangential with evidence of flight of ideas. Thought content: Patient denied suicidal or homicidal ideation. There were no delusions reported with no magical thinking appreciated. He did not appear to be responding to internal stimuli. Attention and concentration were limited and his recent and remote memory appeared impaired. He is alert and oriented to person, place and time. Insight and judgment are impaired. Impulse control is impaired. Vitals/I&O/Wt Last Vital Signs Temp 98.1 F 05/12/25 20:10 Pulse 71 05/12/25 20:10 Resp 18 05/12/25 20:10 BP 109/68 05/12/25 20:10 Pulse Ox 96 05/12/25 20:10 O2 Del Method Room Air 05/12/25 20:10 Weight last 48 hrs Weight 79.469 kg Data NPU 05/12/25 15:48 05/12/25 15:48 Micro: Microbiology 05/09/25 13:49 Gram Stain - Final Cerebrospinal Fluid 05/09/25 13:48 Cryptococcal Antigen (CSF) - Final Cerebrospinal Fluid Microbiology 05/09/25 13:49 Cerebrospinal Fluid Gram Stain - Final 05/09/25 13:48 Cerebrospinal Fluid Cryptococcal Antigen (CSF) - Final A&P Assessment and plan 1. Bipolar disorder: 2. Encephalopathy acute: 3. Alcohol use disorder: 4. Lumbar stenosis with neurogenic claudication: 5. Manic behavior: 6. Hx of Wernicke's encephalopathy: 7. Psychosis: 8. Cannabis use disorder: Plan: This is a 44-year-old white male with a reported long history of bipolar disorder with recent discharge 2 weeks prior from NPU with concerns about encephalopathy although not clear about Warnicke type. 1. Continue Seroquel xr 700mg at 6PM. Continue abilify 15mg daily. Increase depakote ER at 1500mg daily. Depakote level was 58.5. 2. Encourage individual, group and milieu therapy. 3. Continue every 15 minute checks for safety. 4. Encourage sober living treatment after discharge at the highest level of care to which she is willing to commit. 5. Patient needs MRI and LP to complete workup for psychosis and encephalopathy. Will confirm the particular labs to be ordered from LP. Patient continues to have a fluctuating course of consciousness and illness with periods of increased flight of ideas and increased psychomotor activity in unpredictable manner. Court hearing for 21-day hold earlier today and he was placed on a hold. Had MRI this morning 05/06/2025. Working with radiology and LP performed 05/09/2025. Elevated PMN in CSF. Awaiting remaining labs. 6. Ordered hospitalist consult to take a look at whether there are any other areas of investigation that the current things from the LP might suggest including take disease to her some other rare but possible condition. Will monitor findings and follow recommendations as indicated. PDMP PDMP Reviewed: Not Reviewed Involuntary Hold Information 2 Hold Status: Legal Status: 21 Day Hold Date/Time Hold Expires: 05/24/25 Attestations NPU 2 Medical Necessity Statement*: Inpatient hospitalization is medically necessary and the clinically appropriate intervention at this time. We will monitor medications and make changes as indicated. The patient's likely length of stay is 5-8 days. Coding Level of Care Code Acute Code for Chg Fwd Diagnoses Bipolar disorder F31.9 Encephalopathy acute G93.40 Alcohol use disorder F10.90 Lumbar stenosis with neurogenic claudication M48.062 Manic behavior F30.10 Hx of Wernicke's encephalopathy Z86.39 Psychosis F29 Cannabis use disorder F12.90
[2025-05-13 14:00] VITALS: BP 116/72; PULSE 76; RESP 16; TEMP 36.6; O2SAT 100
[2025-05-13] MEDS: quetiapine XR (24HR) 50 mg Tablet 100 MG PO (17:33)
[2025-05-13] MEDS: quetiapine XR (24HR) 300 mg Tablet 600 MG PO (17:33)
[2025-05-13 20:41] VITALS: BP 115/74; PULSE 81; RESP 18; TEMP 36.7; O2SAT 95
[2025-05-14 06:00] VITALS: BP 99/61; PULSE 56; RESP 16; TEMP 36.4; O2SAT 96
[2025-05-14] MEDS: divalproex ER 250 mg Tablet (24H) PO (07:57)
[2025-05-14] MEDS: divalproex ER 500 mg Tablet (24H) 1000 MG PO (07:58)
[2025-05-14] MEDS: HYDROcodone-acetaminophen 5-325 mg Tablet 1 TAB PO ×2 (08:10→18:46)
[2025-05-14] MEDS: NADOLOL 40 MG 40 EACH PO (08:11)
--- NOTE | 2025-05-14 08:13 | P.CONIM_ITS ---
Providers/Reason For Consult 2 Consulting Physician/Specialty*: Susana Gasca MD Reason for Consult*: Persistent encephalopathy Requesting Physician: Dr. Mcghee Attending Physician: Roque Nieves MD History of Present Illness History of Present Illness Dr. Mcghee asked me to take another look at this 44-year-old man with persistent encephalopathy. There was some debate about whether he might have been consuming quite a lot of shots of whiskey before he first became confused on February 14. He was hospitalized at [facility]. he was transferred from [facility] to [facility] because he was so agitated that they had to sedate him. He had an MRI of the brain 03/14/2025 at [facility] that was reported to be normal. He had an EEG in my office on 04/17/2025 that was normal (45 minutes). I had planned outpatient connective tissue workup and CSF evaluation but the patient was readmitted to this hospital only a week after I saw him in the office on 04/24/2025 because he was unable to sleep for 3 days, was walking naked in front of children outside the house, making physical threats toward his and covering things in the house with electrical tape. Antipsychotics seem not to had a big effect on his mental status. Neurologically he is fully intact, walking, eating, drinking and with no signs of seizure activity but he has persistent slurred speech and confusion. Since he has been hospitalized here for the last almost 3 weeks, he has remained disorganized. He is currently looking at it 21-day hold. I am asked to make sure that we have eliminated any chance of organic neuropathology. I reviewed 44 pages of records from [facility]. He was so agitated that he required violent restraints at [facility] and for that he was transferred to [facility]. He was oriented to 2 out of 3 items. His described that the patient suddenly became psychotic on 02/09, was found riding an electric bicycle and was taken to [facility]. He had been on Librium in the past. After hospitalization at [facility] he required 4-point restraints due to severe agitation. CBC was remarkable for mild anemia. Electrolytes were unremarkable. CT head was negative without contrast 03/05/2025 and subsequent MRI was normal 03/07/2025. He was started on high-dose thiamine at [facility]. His diagnosis was presumed to be bipolar disorder. His serum ammonia was not elevated. His thyroid was unremarkable. B12 280. HIV and RPR negative. Hepatitis serology negative. Urine drug screen was negative. MR angiogram brain looking for cerebral arteritis - 04/23/2025. Spinal fluid examination was entirely unremarkable on 05/09/2025 with only 4 white blood cells. Immunoglobulins pending. NMDA pending. Dr. Clemente keller [place] ordered encephalitis and Lyme studies and those are pending. Glucose and protein were normal making [employer] infection or paraneoplastic syndrome very unlikely. Review of Systems 2 Eyes: Denies: change in vision, blurry vision or eye redness ENMT: Denies: change in hearing Neuro: Reports: confusion, behavioral changes, Slurred speech present and difficulty communicating thoughts; Denies: headache(s), lack of coordination, difficulty walking, frequent falls, seizure-like activity or involuntary movements Psych: Reports: sleeping less, change in appetite (He has lost quite a lot of weight), irritability, paranoia and difficulty concentrating; Denies: visual hallucinations or auditory hallucinations Medications/Allergies Home Medications ?Medication ?Instructions ?Recorded ?Confirmed ?Last Taken ?Type hydrocodone 5 mg-acetaminophen 325 1 tab PO Q6H PRN Pa in 12/20/24 04/23/25 04/22/25 21:00 History mg tablet aripiprazole 15 mg tablet 15 mg PO DAILY 30 days #30 t abs 04/10/25 04/23/25 04/23/25 Rx benztropine 1 mg tablet 1 mg PO BID 30 days #60 tabs 04/10/25 04/23/25 04/23/25 Rx chlorthalidone 25 mg tablet 25 mg PO DAILY 30 days #30 tabs 04/10/25 04/23/25 04/23/25 Rx clonazepam 1 mg tablet 2 mg (2 x 1 mg) PO BEDTIME 3 0 days 04/10/25 04/23/25 04/23/25 Rx #30 tabs divalproex 500 mg tablet,extended 1,000 mg (2 x 500 mg ) PO 0800 30 04/10/25 04/23/25 04/23/25 08:00 Rx release 24 hr days #60 tabs nadolol 40 mg tablet 40 mg PO DAILY 30 days #30 t abs 04/10/25 04/23/25 Unknown Rx pantoprazole 40 mg tablet,delayed 40 mg PO DAILY 30 da ys #30 tabs 04/10/25 04/23/25 04/23/25 Rx release quetiapine 400 mg tablet,extended 400 mg PO 1800 30 da ys #30 tabs 04/10/25 04/23/25 04/22/25 19:00 Rx release 24 hr thiamine mononitrate (vit B1) 100 200 mg (2 x 100 mg) PO DAILY 30 04/10/25 04/23/25 04/23/25 08:00 Rx mg tablet (Vitamin B-1 days #60 tabs (mononitrate)) Allergies Allergy/AdvReac Type Severity Reaction Status Date / Time haloperidol (From Haldol) Allergy ADR-Seizure Verified 04/17/25 08:38 risperidone (From Risperdal) Allergy ALGY-Anaphy Verified 04/17/25 08:38 laxis Current Medications Generic Name Dose Route Start Last Admin Trade Name Freq PRN Reason Stop Dose Admin Hydrocodone Bitart/Acetaminophen 1 tab 04/23/25 15:48 05/14/25 08:10 Hydrocodone-Acetaminophen 5-325 Mg Tablet PO 1 tab Q6H PRN Administration PAIN Aripiprazole 15 mg 04/24/25 09:00 05/14/25 07:58 Aripiprazole 30 Mg Tablet PO 15 mg DAILY CORRIE Administration Artificial Tears 1 drop 04/30/25 04:27 04/30/25 04:39 Artificial Tears Op Soln 15 Ml Btl EYE-BOTH 1 drop Q4H PRN Administration DRY EYE(S) Benzocaine 1 each 04/29/25 20:19 05/10/25 23:01 Cetylpyridinium Lozenge MUCOUS MEM 1 each Q2H PRN Administration SORE THROAT Benztropine Mesylate 1 mg 04/23/25 13:46 04/24/25 17:18 Benztropine 1 Mg Tablet PO 1 mg BID PRN Administration Mild Extrapyramidal symptoms Benztropine Mesylate 1 mg 04/23/25 18:00 05/14/25 07:58 Benztropine 1 Mg Tablet PO 1 mg BID CORRIE Administration Camphor/Menthol/Phenol 1 applic 04/23/25 13:46 05/12/25 06:42 Blistex Lip Oint 7 Gm Tube TOPICAL 1 applic Q1H PRN Administration DRYNESS Chlorthalidone 25 mg 04/24/25 09:00 05/14/25 07:58 Chlorthalidone 25 Mg Tablet PO 25 mg DAILY CORRIE Administration Clonazepam 2 mg 04/23/25 21:00 05/13/25 22:10 Clonazepam 1 Mg Tablet PO 2 mg BEDTIME CORRIE Administration Diphenhydramine HCl 50 mg 04/23/25 13:46 04/29/25 16:31 Diphenhydramine 50 Mg/Ml Sdv 1ml IM 50 mg ONCE PRN Administration Severe Extrapyramidal Symptoms Diphenhydramine HCl 50 mg 04/23/25 13:46 04/26/25 20:19 Diphenhydramine 50 Mg/Ml Sdv 1ml IM 50 mg Q4H PRN Administration Severe Aggression Divalproex Sodium 1,000 mg 04/28/25 08:00 05/14/25 07:58 Divalproex Er 500 Mg Tablet (24h) PO 1,000 mg 0800 CORRIE Administration Divalproex Sodium 250 mg 04/28/25 08:00 05/14/25 07:57 Divalproex Er 250 Mg Tablet (24h) PO 250 mg 0800 CORRIE Administration Docusate Sodium 200 mg 05/02/25 18:44 05/13/25 08:12 Docusate Sodium 100 Mg Capsule PO 200 mg PRN PRN Administration CONSTIPATION Hydroxyzine Pamoate 50 mg 04/23/25 13:46 05/13/25 22:10 Hydroxyzine 25 Mg Capsule PO 50 mg Q6H PRN Administration ANXIETY Ibuprofen 600 mg 04/23/25 13:47 05/11/25 21:51 Ibuprofen 600 Mg Tablet PO 600 mg Q6H PRN Administration MODERATE PAIN Lactulose 20 gm 05/04/25 19:10 05/06/25 14:08 Lactulose Oral Liq 20 Gm/30 Ml Udc PO 20 gm BID PRN Administration CONSTIPATION Lorazepam 2 mg 04/23/25 13:46 04/29/25 16:31 Lorazepam 1 Mg/0.5 Ml Injection IM 2 mg Q4H PRN Administration Severe Aggression Nicotine 1 patch 04/23/25 13:46 05/13/25 19:38 Nicotine 21 Mg Patch TRANSDERMA 1 patch DAILY PRN Administration NICOTINE WITHDRAWAL Nicotine Polacrilex 2 mg 04/23/25 13:46 05/13/25 09:58 Nicotine 2 Mg Gum BUCCAL 2 mg Q2H PRN Administration NICOTINE WITHDRAWAL Nicotine Polacrilex 4 mg 04/23/25 13:47 05/13/25 21:59 Nicotine 4 Mg Lozenge MUCOUS MEM 4 mg Q2H PRN Administration NICOTINE CRAVINGS Non-Formulary Medication 40 mg 05/08/25 19:00 05/14/25 08:11 Nadolol PO 40 mg DAILY CORRIE Administration Olanzapine 5 mg 04/23/25 13:46 05/12/25 20:23 Olanzapine 5 Mg Odt PO 5 mg Q4H PRN Administration Agitation/Psychosis Pantoprazole Sodium 40 mg 04/24/25 09:00 05/14/25 07:[address] 40 Mg Tablet PO 40 mg DAILY CORRIE Administration Quetiapine Fumarate 600 mg 04/30/25 18:00 05/13/25 17:33 Quetiapine Xr (24hr) 300 Mg Tablet PO 600 mg 1800 CORRIE Administration Quetiapine Fumarate 100 mg 04/30/25 18:00 05/13/25 17:33 Quetiapine Xr (24hr) 50 Mg Tablet PO 100 mg 1800 CORRIE Administration Thiamine Mononitrate 200 mg 04/24/25 09:00 05/14/25 07:58 Thiamine 100 Mg Tablet PO 200 mg DAILY CORRIE Administration Trazodone HCl 50 mg 04/23/25 13:46 05/13/25 22:10 Trazodone 50 Mg Tablet PO 50 mg BEDTIME PRN Administration SLEEP PFSH Acute 2 PFSH: Medical History (Updated 05/14/25 @ 08:34 by Susana Gasca MD) Hx of Wernicke's encephalopathy Psychiatric care Social History Smoking and tobacco/nicotine status: never used tobacco/nicotine Vitals/I&O/Wt Last Vital Signs Temp 97.5 F L 05/14/25 06:00 Pulse 56 L 05/14/25 06:00 Resp 16 05/14/25 06:00 BP 99/61 05/14/25 06:00 Pulse Ox 96 05/14/25 06:00 O2 Del Method Room Air 05/14/25 06:00 Physical Exam 2 Narrative: GENERAL: He remains thin. MENTAL STATUS: He seemed to recognize me as he approached the nurses station but he did not remember my name or where he had seen me before. He knew the month was April and that he is in the hospital. His speech remains so soft, hypophonic and slurred that it is often difficult to understand him. He was able to register and remember 3 objects after several minutes of distraction. He could not perform serial sevens beyond 93 despite being reoriented to the task. He spelled the word world backward with a letter reversal. He does not appear to be responding to internal stimuli. He makes good eye contact. He can tell me how long he has been and where he met his . CRANIAL NERVES: Visual plummer were full to confrontation. Full eye movements. Normal facial movements. MOTOR: No myoclonic jerks. 5 out of 5 strength throughout. He can walk a straight line. SENSATION: He perceives touch in all 4 extremities. COORDINATION: No appendicular ataxia on [id number]-[id number]-[id number] or [id number]-gilc. Tandem gait normal. DEEP TENDON REFLEXES: 2/4 throughout. GAIT: Normal HEENT: Normocephalic without dysmorphic features. Conjunctivae were not injected and sclerae were nonicteric. NECK: Carotid upstroke was strong bilaterally without bruits. The thyroid was not enlarged and there were no palpable lymph nodes. CHEST: Clear to auscultation. CARDIOVASCULAR: The heart sounds were normal without murmur or gallop. Regular rate and rhythm. EXTREMITIES: Thin Data 05/12/25 15:48 05/12/25 15:48 Micro: Microbiology 05/09/25 13:49 Gram Stain - Final Cerebrospinal Fluid CSF Culture - Preliminary A&P Assessment and plan 1. Encephalopathy acute: 44-year-old man with overnight development of acute encephalopathy several months ago. He is now actually been 3 months since he became acutely psychotic. He had extensive workup at [facility]. The cause of his slurred speech and resistance to antipsychotic medication Dr. Mcghee is appropriately anxious to rule out organic pathology. Infectious disease has been ruled out by his bland CSF profile. Slow virus disease ruled out by his relatively normal neurologic exam and normal EEG performed several weeks ago. Repeat MRI is appropriate to rule out limbic encephalitis although considering his benign exam again that is unlikely. It is appropriate to perform inflammatory studies but lupus cerebritis should have been apparent on his previous MRI. Thanks for asking me to participate in his care. 2. Bipolar disorder: 3. Manic behavior: PDMP PDMP Reviewed: Not Reviewed Consult Attestations 2 Medical Necessity Statement: Persistent psychosis patient unable to return home. Coding Level of Care Code Acute Code for [facility] Fwd Diagnoses Encephalopathy acute G93.40 Bipolar disorder F31.9 Manic behavior F30.10
[2025-05-14] MEDS: gadobenate dimeglumine 20 mL vial IV (09:01)
[2025-05-14 12:49] LABS: COMPLEMENT COMPONENT C3C 116 mg/dL (82-185); COMPLEMENT COMPONENT C4C 30 mg/dL (15-53)
[2025-05-14 14:00] VITALS: BP 133/75; PULSE 76; RESP 18; TEMP 36.3; O2SAT 98
[2025-05-14 15:55] LABS: COMPLEMENT, TOTAL (CH50) >60 U/mL (31-60)
--- NOTE | 2025-05-14 17:38 | MR_ITS ---
WS: [id number] MRI HEAD WITH CONTRAST TECHNIQUE: Sagittal T1, T2 axial, T2 axial FLAIR, axial susceptibility weighted imaging, axial diffusion weighted images, and coronal T2 images were obtained. Pre and post-T1 axial and post T1 coronal images. ADC and FSPGR images. CLINICAL INFORMATION: encephalopathy COMPARISON: Outside MRI 03/07/2025 FINDINGS: No evidence of restricted diffusion to suggest acute ischemia. Ventricular system and basilar cisterns are patent. No suspicious intracranial signal abnormalities. Normal posterior fossa. Normal vascular flow voids at the skull base. No extra-axial fluid collections. Paranasal sinuses and mastoid air cells are well aerated. Small retention cyst LEFT maxillary sinus. No hemosiderin on the susceptibly weighted images. Normal optic chiasm and pituitary infundibulum. Temporal lobes and hippocampal formations are normal in appearance. No abnormal gadolinium enhancement. MR/MR head wo/w con [id number] IMPRESSION: 1. No evidence of restricted diffusion to suggest acute ischemia. 2. No suspicious intracranial signal abnormalities. 3. No hemosiderin on susceptibly weighted images. 4. No abnormal gadolinium enhancement. 5. No acute intracranial findings.
--- NOTE | 2025-05-14 18:27 | W.PM.NPUPNS ---
Subjective NPU Subjective: Patient presented today reporting that he is doing fine. We discussed the fact that the neurologist would see him today and he was happy about that. We discussed that we continue to have no real leads on work explaining this dramatic change in his personality and ability to articulate words and make some fairly common fine motor skill behaviors. There are still labs that are outstanding and will be for some days but they continue to be no clear signs as to why we discussed that. We discussed the fact that we may need to be focused on where he might go next and how he and his family will the challenge of him needing so much assistance. He denied any side effects to medications. Mental Status Exam MSE Comments: This is a well-nourished well-developed white male in hospital scrubs with adequate grooming and fair eye contact with some tattoos on both arms. There continued to be increased psychomotor activation. There was no abnormal involuntary motor movements appreciated today with no shuffling gait. He was cooperative with exam in mild distress. Speech is pressured with normal volume but continued evidence of dysarthria. Mood described as okay His affect was flat. Thought process was tangential with evidence of flight of ideas. Thought content: Patient denied suicidal or homicidal ideation. There were no delusions reported with no magical thinking appreciated. He did not appear to be responding to internal stimuli. Attention and concentration were limited and his recent and remote memory appeared impaired. He is alert and oriented to person, place and time. Insight and judgment are impaired. Impulse control is impaired. Vitals/I&O/Wt Last Vital Signs Temp 97.5 F L 05/14/25 19:17 Pulse 82 05/14/25 19:17 Resp 18 05/14/25 19:17 BP 129/74 05/14/25 19:17 Pulse Ox 99 05/14/25 19:17 O2 Del Method Room Air 05/14/25 19:17 Data NPU 05/12/25 15:48 05/12/25 15:48 Micro: Microbiology 05/09/25 13:49 Gram Stain - Final Cerebrospinal Fluid CSF Culture - Preliminary 05/09/25 13:48 Cryptococcal Antigen (CSF) - Final Cerebrospinal Fluid Microbiology 05/09/25 13:49 Cerebrospinal Fluid Gram Stain - Final 05/09/25 13:49 Cerebrospinal Fluid CSF Culture - Preliminary 05/09/25 13:48 Cerebrospinal Fluid Cryptococcal Antigen (CSF) - Final A&P Assessment and plan 1. Encephalopathy acute: 2. Bipolar disorder: 3. Manic behavior: 4. Alcohol use disorder: 5. Lumbar stenosis with neurogenic claudication: 6. Hx of Wernicke's encephalopathy: 7. Psychosis: 8. Cannabis use disorder: Plan: This is a 44-year-old white male with a reported long history of bipolar disorder with recent discharge 2 weeks prior from NPU with concerns about encephalopathy although not clear about Warnicke type. 1. Continue Seroquel xr 700mg at 6PM. Continue abilify 15mg daily. Increase depakote ER at 1500mg daily. Depakote level was 58.5. 2. Encourage individual, group and milieu therapy. 3. Continue every 15 minute checks for safety. 4. Encourage sober living treatment after discharge at the highest level of care to which she is willing to commit. 5. Patient needs MRI and LP to complete workup for psychosis and encephalopathy. Will confirm the particular labs to be ordered from LP. Patient continues to have a fluctuating course of consciousness and illness with periods of increased flight of ideas and increased psychomotor activity in unpredictable manner. Court hearing for 21-day hold earlier today and he was placed on a hold. Had MRI this morning 05/06/2025. Working with radiology and LP performed 05/09/2025. Elevated PMN in CSF. Awaiting remaining labs. 6. Ordered hospitalist consult to take a look at whether there are any other areas of investigation that the current things from the LP might suggest including take disease to her some other rare but possible condition. Will monitor findings and follow recommendations as indicated. PDMP PDMP Reviewed: Not Reviewed Involuntary Hold Information Hold Status: Legal Status: 21 Day Hold Date/Time Hold Expires: 05/24/25 Attestations NPU Medical Necessity Statement*: Inpatient hospitalization is medically necessary and the clinically appropriate intervention at this time. We will monitor medications and make changes as indicated. The patient's likely length of stay is 5-8 days. Coding Level of Care Code Acute Code for [facility] Fwd Diagnoses Encephalopathy acute G93.40 Bipolar disorder F31.9 Manic behavior F30.10 Alcohol use disorder F10.90 Lumbar stenosis with neurogenic claudication M48.062 Hx of Wernicke's encephalopathy Z86.39 Psychosis F29 Cannabis use disorder F12.90
[2025-05-14] MEDS: quetiapine XR (24HR) 300 mg Tablet 600 MG PO (18:38)
[2025-05-14] MEDS: quetiapine XR (24HR) 50 mg Tablet 100 MG PO (18:38)
[2025-05-14 19:17] VITALS: BP 129/74; PULSE 82; RESP 18; TEMP 36.4; O2SAT 99
[2025-05-14] MEDS: artificial tears Op Soln 15 mL Btl 1 DROP EYE-BOTH (23:33)
[2025-05-15 06:00] VITALS: BP 112/72; PULSE 64; RESP 16; TEMP 36.4; O2SAT 100
[2025-05-15] MEDS: divalproex ER 500 mg Tablet (24H) 1000 MG PO (07:57)
[2025-05-15] MEDS: divalproex ER 250 mg Tablet (24H) PO (07:58)
[2025-05-15] MEDS: NADOLOL 40 MG 40 EACH PO (07:59)
[2025-05-15] MEDS: HYDROcodone-acetaminophen 5-325 mg Tablet 1 TAB PO ×2 (08:48→20:54)
[2025-05-15 12:15] LABS: THYROID PEROXIDASE ANTIBODIES <1 IU/mL (<9)
[2025-05-15 13:26] VITALS: BP 108/72; PULSE 69; RESP 17; TEMP 36.3; O2SAT 100
--- NOTE | 2025-05-15 13:30 | P.NPUPN_ITS ---
Subjective NPU 2 Subjective: Patient presented today with no noteworthy changes per staff reports and direct observation. He continues to have aimless and purposeless thought and continues to mumble with speech. He has occasional statements that are goal-directed but often is limited in these moments. He clearly is interested in going home as soon as that is possible but does not get worked up or agitated about those thoughts. He appears to have excepted his situation of having to be here until we determine what the problem is or that we will send him he hopes home but somewhere other than the hospital. We discussed having to talk to his about how she wants to handle this. He denied any side effects of his medication. Mental Status Exam 2 MSE Comments: This is a well-nourished well-developed white male in hospital scrubs with adequate grooming and fair eye contact with some tattoos on both arms. There continued to be increased psychomotor activation. There was no abnormal involuntary motor movements appreciated today with no shuffling gait. He was cooperative with exam in mild distress. Speech is pressured with normal volume but continued evidence of dysarthria. Mood described as okay His affect was flat. Thought process was tangential with evidence of flight of ideas. Thought content: Patient denied suicidal or homicidal ideation. There were no delusions reported with no magical thinking appreciated. He did not appear to be responding to internal stimuli. Attention and concentration were limited and his recent and remote memory appeared impaired. He is alert and oriented to person, place and time. Insight and judgment are impaired. Impulse control is impaired. Vitals/I&O/Wt Last Vital Signs Temp 97.4 F L 05/15/25 13:26 Pulse 69 05/15/25 13:26 Resp 17 05/15/25 13:26 BP 108/72 05/15/25 13:26 Pulse Ox 100 05/15/25 13:26 O2 Del Method Room Air 05/15/25 06:00 Data NPU 05/12/25 15:48 05/12/25 15:48 Micro: Microbiology 05/09/25 13:49 Gram Stain - Final Cerebrospinal Fluid CSF Culture - Final 05/09/25 13:48 Cryptococcal Antigen (CSF) - Final Cerebrospinal Fluid Microbiology 05/09/25 13:49 Cerebrospinal Fluid Gram Stain - Final 05/09/25 13:49 Cerebrospinal Fluid CSF Culture - Final 05/09/25 13:48 Cerebrospinal Fluid Cryptococcal Antigen (CSF) - Final A&P Assessment and plan 1. Encephalopathy acute: 2. Bipolar disorder: 3. Manic behavior: 4. Alcohol use disorder: 5. Lumbar stenosis with neurogenic claudication: 6. Hx of Wernicke's encephalopathy: 7. Psychosis: 8. Cannabis use disorder: Plan: This is a 44-year-old white male with a reported long history of bipolar disorder with recent discharge 2 weeks prior from NPU with concerns about encephalopathy although not clear about Warnicke type. 1. Continue Seroquel xr 700mg at 6PM. Continue abilify 15mg daily. Increase depakote ER at 1500mg daily. Depakote level was 58.5. 2. Encourage individual, group and milieu therapy. 3. Continue every 15 minute checks for safety. 4. Encourage sober living treatment after discharge at the highest level of care to which she is willing to commit. 5. Patient needs MRI and LP to complete workup for psychosis and encephalopathy. Will confirm the particular labs to be ordered from LP. Patient continues to have a fluctuating course of consciousness and illness with periods of increased flight of ideas and increased psychomotor activity in unpredictable manner. Court hearing for 21-day hold earlier today and he was placed on a hold. Had MRI this morning 05/06/2025. Working with radiology and LP performed 05/09/2025. Awaiting remaining labs. 6. Ordered hospitalist consult to take a look at whether there are any other areas of investigation that the current things from the LP might suggest including take disease to her some other rare but possible condition. Will monitor findings and follow recommendations as indicated. 7. There are several studies that are send outs that are pending but otherwise everything is come back essentially normal with no explanation for his acute changes. We will await those final results and likely will need to move towards supportive treatment of his new abnormal normal. PDMP PDMP Reviewed: Not Reviewed Involuntary Hold Information 2 Hold Status: Legal Status: 21 Day Hold Date/Time Hold Expires: 05/24/25 Attestations NPU 2 Medical Necessity Statement*: Inpatient hospitalization is medically necessary and the clinically appropriate intervention at this time. We will monitor medications and make changes as indicated. The patient's likely length of stay is 5-8 days. Coding Level of Care Code Acute Code for [facility] Fw Diagnoses Encephalopathy acute G93.40 Bipolar disorder F31.9 Manic behavior F30.10 Alcohol use disorder F10.90 Lumbar stenosis with neurogenic claudication M48.062 Hx of Wernicke's encephalopathy Z86.39 Psychosis F29 Cannabis use disorder F12.90
[2025-05-15] MEDS: quetiapine XR (24HR) 300 mg Tablet 600 MG PO (17:10)
[2025-05-15] MEDS: quetiapine XR (24HR) 50 mg Tablet 100 MG PO (17:10)
[2025-05-15 19:42] VITALS: BP 106/73; PULSE 77; RESP 17; O2SAT 96
[2025-05-16 06:00] VITALS: BP 95/63; PULSE 64; RESP 16; TEMP 36.4; O2SAT 100
[2025-05-16 06:15] LABS: CENTROMERE B ANTIBODY <1.0 NEG AI (<1.0 NEG); JO-1 ANTIBODY <1.0 NEG AI (<1.0 NEG); RNP ANTIBODY <1.0 NEG AI (<1.0 NEG); SCL-70 ANTIBODY <1.0 NEG AI (<1.0 NEG); SS-B <1.0 NEG AI (<1.0 NEG)
--- NOTE | 2025-05-16 08:19 | NUR.SHIFT ---
Pt states that he slept good last night. No reports of anxiety and depression. Denies SI/HI and hallucinations. 5/10 low back pain. He is calm and cooperative on assessment.
[2025-05-16] MEDS: divalproex ER 500 mg Tablet (24H) 1000 MG PO (08:44)
[2025-05-16] MEDS: NADOLOL 40 MG 40 EACH PO (08:44)
[2025-05-16] MEDS: divalproex ER 250 mg Tablet (24H) PO (08:44)
[2025-05-16] MEDS: HYDROcodone-acetaminophen 5-325 mg Tablet 1 TAB PO ×2 (09:23→21:07)
[2025-05-16 12:48] LABS: DNA AB (DS) CRITHIDIA,IFA NEGATIVE (NEGATIVE)
[2025-05-16 13:55] VITALS: BP 103/67; PULSE 75; RESP 16; TEMP 36.6; O2SAT 98
--- NOTE | 2025-05-16 15:34 | P.NPUPN_ITS ---
Subjective NPU 2 Subjective: Patient presented today reporting that he is feeling fine in general. He reports that there is a desire to discharge but he seems to be accepting of his current situation and the fact that we are still waiting many labs because they are mostly send outs. We continue to keep him abreast of any new findings and discussed working with his on possibilities for discharge when the time comes. He denies any side effects of the medications. Mental Status Exam 2 MSE Comments: This is a well-nourished well-developed white male in hospital scrubs with adequate grooming and fair eye contact with some tattoos on both arms. There continued to be increased psychomotor activation. There was no abnormal involuntary motor movements appreciated today with no shuffling gait. He was cooperative with exam in mild distress. Speech is pressured with normal volume but continued evidence of dysarthria. Mood described as okay His affect was flat. Thought process was tangential with evidence of flight of ideas. Thought content: Patient denied suicidal or homicidal ideation. There were no delusions reported with no magical thinking appreciated. He did not appear to be responding to internal stimuli. Attention and concentration were limited and his recent and remote memory appeared impaired. He is alert and oriented to person, place and time. Insight and judgment are impaired. Impulse control is impaired. Vitals/I&O/Wt Last Vital Signs Temp 97.8 F 05/16/25 13:55 Pulse 75 05/16/25 13:55 Resp 16 05/16/25 13:55 BP 103/67 05/16/25 13:55 Pulse Ox 98 05/16/25 13:55 O2 Del Method Room Air 05/16/25 13:55 Data NPU 05/12/25 15:48 05/12/25 15:48 Micro: Microbiology 05/09/25 13:49 Gram Stain - Final Cerebrospinal Fluid CSF Culture - Final Microbiology 05/09/25 13:49 Cerebrospinal Fluid Gram Stain - Final 05/09/25 13:49 Cerebrospinal Fluid CSF Culture - Final A&P Assessment and plan 1. Encephalopathy acute: 2. Bipolar disorder: 3. Manic behavior: 4. Alcohol use disorder: 5. Lumbar stenosis with neurogenic claudication: 6. Hx of Wernicke's encephalopathy: 7. Psychosis: 8. Cannabis use disorder: Plan: This is a 44-year-old white male with a reported long history of bipolar disorder with recent discharge 2 weeks prior from NPU with concerns about encephalopathy although not clear about Warnicke type. 1. Continue Seroquel xr 700mg at 6PM. Continue abilify 15mg daily. Increase depakote ER at 1500mg daily. Depakote level was 58.5. 2. Encourage individual, group and milieu therapy. 3. Continue every 15 minute checks for safety. 4. Encourage sober living treatment after discharge at the highest level of care to which she is willing to commit. 5. Patient needs MRI and LP to complete workup for psychosis and encephalopathy. Will confirm the particular labs to be ordered from LP. Patient continues to have a fluctuating course of consciousness and illness with periods of increased flight of ideas and increased psychomotor activity in unpredictable manner. Court hearing for 21-day hold earlier today and he was placed on a hold. Had MRI this morning 05/06/2025. Working with radiology and LP performed 05/09/2025. Awaiting remaining labs. 6. Ordered hospitalist consult to take a look at whether there are any other areas of investigation that the current things from the LP might suggest including take disease to her some other rare but possible condition. Will monitor findings and follow recommendations as indicated. 7. There are several studies that are send outs that are pending but otherwise everything is come back essentially normal with no explanation for his acute changes. We will await those final results and likely will need to move towards supportive treatment of his new abnormal normal. PDMP PDMP Reviewed: Not Reviewed Involuntary Hold Information 2 Hold Status: Legal Status: 21 Day Hold Date/Time Hold Expires: 05/24/25 Attestations NPU 2 Medical Necessity Statement*: Inpatient hospitalization is medically necessary and the clinically appropriate intervention at this time. We will monitor medications and make changes as indicated. The patient's likely length of stay is 4-7 days. Coding Level of Care Code Acute Code for [facility] Fwd Diagnoses Encephalopathy acute G93.40 Bipolar disorder F31.9 Manic behavior F30.10 Alcohol use disorder F10.90 Lumbar stenosis with neurogenic claudication M48.062 Hx of Wernicke's encephalopathy Z86.39 Psychosis F29 Cannabis use disorder F12.90
[2025-05-16] MEDS: quetiapine XR (24HR) 300 mg Tablet 600 MG PO (17:31)
[2025-05-16] MEDS: quetiapine XR (24HR) 50 mg Tablet 100 MG PO (17:31)
[2025-05-16 19:21] VITALS: BP 105/71; PULSE 78; RESP 18; TEMP 36.5; O2SAT 98
[2025-05-16 22:50] LABS: VDRL on CSF NON-REACTIVE
[2025-05-17 06:00] VITALS: BP 105/70; PULSE 73; RESP 18; O2SAT 97
[2025-05-17] MEDS: NADOLOL 40 MG 40 EACH PO (08:03)
[2025-05-17] MEDS: divalproex ER 250 mg Tablet (24H) PO (08:04)
[2025-05-17] MEDS: divalproex ER 500 mg Tablet (24H) 1000 MG PO (08:04)
--- NOTE | 2025-05-17 08:53 | NUR.SHIFT ---
Pt states that he slept pretty good last night. He denies anxiety and depression. No reports of SI/HI or hallucinations. He rates his chronic back pain a 6/10. He is calm and cooperative on assessment.
[2025-05-17] MEDS: artificial tears Op Soln 15 mL Btl 1 DROP EYE-BOTH (09:36)
[2025-05-17] MEDS: HYDROcodone-acetaminophen 5-325 mg Tablet 1 TAB PO ×2 (09:36→20:57)
--- NOTE | 2025-05-17 13:46 | P.NPUPN_ITS ---
Subjective NPU 2 Subjective: Patient presented today reporting that things are okay. He was more focused today on discharge than he had before even seeming to report that if he would have known of his going to be here this long he would have come and that he came for his . We discussed the fact that we did talk to his about the living arrangement and what her plans are regarding him possibility for the need for guardianship even if all of short-term basis and the possibilities of discharge. We continue to follow his labs we discussed those and he denied any side effects to his medication. Mental Status Exam 2 MSE Comments: This is a well-nourished well-developed white male in hospital scrubs with adequate grooming and fair eye contact with some tattoos on both arms. There continued to be increased psychomotor activation. There was no abnormal involuntary motor movements appreciated today with no shuffling gait. He was cooperative with exam in mild distress. Speech is pressured with normal volume but continued evidence of dysarthria. Mood described as okay His affect was flat. Thought process was tangential with evidence of flight of ideas. Thought content: Patient denied suicidal or homicidal ideation. There were no delusions reported with no magical thinking appreciated. He did not appear to be responding to internal stimuli. Attention and concentration were limited and his recent and remote memory appeared impaired. He is alert and oriented to person, place and time. Insight and judgment are impaired. Impulse control is impaired. Vitals/I&O/Wt Last Vital Signs Temp 97.7 F 05/16/25 19:21 Pulse 73 05/17/25 06:00 Resp 18 05/17/25 06:00 BP 105/70 05/17/25 06:00 Pulse Ox 97 05/17/25 06:00 O2 Del Method Room Air 05/17/25 06:00 Data NPU 05/12/25 15:48 05/12/25 15:48 A&P Assessment and plan 1. Encephalopathy acute: 2. Bipolar disorder: 3. Manic behavior: 4. Alcohol use disorder: 5. Lumbar stenosis with neurogenic claudication: 6. Hx of Wernicke's encephalopathy: 7. Psychosis: 8. Cannabis use disorder: Plan: This is a 44-year-old white male with a reported long history of bipolar disorder with recent discharge 2 weeks prior from NPU with concerns about encephalopathy although not clear about Warnicke type. 1. Continue Seroquel xr 700mg at 6PM. Continue abilify 15mg daily. Increase depakote ER at 1500mg daily. Depakote level was 58.5. 2. Encourage individual, group and milieu therapy. 3. Continue every 15 minute checks for safety. 4. Encourage sober living treatment after discharge at the highest level of care to which she is willing to commit. 5. Patient needs MRI and LP to complete workup for psychosis and encephalopathy. Will confirm the particular labs to be ordered from LP. Patient continues to have a fluctuating course of consciousness and illness with periods of increased flight of ideas and increased psychomotor activity in unpredictable manner. Court hearing for 21-day hold earlier today and he was placed on a hold. Had MRI this morning 05/06/2025. Working with radiology and LP performed 05/09/2025. Awaiting remaining labs. 6. Ordered hospitalist consult to take a look at whether there are any other areas of investigation that the current things from the LP might suggest including take disease to her some other rare but possible condition. Will monitor findings and follow recommendations as indicated. 7. There are several studies that are send outs that are pending but otherwise everything is come back essentially normal with no explanation for his acute changes. We will await those final results and likely will need to move towards supportive treatment of his new abnormal normal. PDMP PDMP Reviewed: Not Reviewed Involuntary Hold Information 2 Hold Status: Legal Status: 21 Day Hold Date/Time Hold Expires: 05/24/25 Attestations NPU 2 Medical Necessity Statement*: Inpatient hospitalization is medically necessary and the clinically appropriate intervention at this time. We will monitor medications and make changes as indicated. The patient's likely length of stay is 4-7 days. Coding Level of Care Code Acute Code for [facility] Fwd Diagnoses Encephalopathy acute G93.40 Bipolar disorder F31.9 Manic behavior F30.10 Alcohol use disorder F10.90 Lumbar stenosis with neurogenic claudication M48.062 Hx of Wernicke's encephalopathy Z86.39 Psychosis F29 Cannabis use disorder F12.90
[2025-05-17 14:00] VITALS: BP 106/64; PULSE 76; RESP 18; TEMP 36.4; O2SAT 96
[2025-05-17] MEDS: quetiapine XR (24HR) 300 mg Tablet 600 MG PO (17:30)
[2025-05-17] MEDS: quetiapine XR (24HR) 50 mg Tablet 100 MG PO (17:31)
[2025-05-17 19:25] VITALS: BP 120/81; PULSE 79; RESP 18; TEMP 36.4; O2SAT 92
[2025-05-17 19:34] LABS: IGG CSF 1.8 mg/dL (0.8-7.7); IGG Serum Test 884 mg/dL (600-1640); Oligoclonal Bands (IGG) CSF ABSENT (ABSENT)
[2025-05-18 06:00] VITALS: BP 122/88; PULSE 84; RESP 18; TEMP 36.6; O2SAT 98
[2025-05-18] MEDS: divalproex ER 500 mg Tablet (24H) 1000 MG PO (08:20)
[2025-05-18] MEDS: divalproex ER 250 mg Tablet (24H) PO (08:21)
[2025-05-18] MEDS: NADOLOL 40 MG 40 EACH PO (08:22)
[2025-05-18] MEDS: HYDROcodone-acetaminophen 5-325 mg Tablet 1 TAB PO ×2 (08:26→20:35)
--- NOTE | 2025-05-18 10:21 | NUR.SHIFT ---
Pt states that he slept like a baby last night. He denies anxiety and depression. No reports of SI/HI or hallucinations. He rates his back pain a 7/10 and has already used his PRN pain med (see MAR). He is calm and cooperative on assessment.
[2025-05-18 14:00] VITALS: BP 118/72; PULSE 71; RESP 18; TEMP 36.5; O2SAT 95
--- NOTE | 2025-05-18 17:20 | P.NPUPN_ITS ---
Subjective NPU 2 Subjective: Patient presents today reporting that he is doing okay. He continues to be frustrated at the fact that he is still here and some of the reports have not come in. He is awaiting those labs. We continue to discuss the situation and is trying to figure out how to get him to a safe reality at home or an alternative to home depending on the situation. He denied any side effects of the medication Mental Status Exam 2 MSE Comments: This is a well-nourished well-developed white male in hospital scrubs with adequate grooming and fair eye contact with some tattoos on both arms. There continued to be increased psychomotor activation. There was no abnormal involuntary motor movements appreciated today with no shuffling gait. He was cooperative with exam in mild distress. Speech is pressured with normal volume but continued evidence of dysarthria. Mood described as okay His affect was flat. Thought process was tangential with evidence of flight of ideas. Thought content: Patient denied suicidal or homicidal ideation. There were no delusions reported with no magical thinking appreciated. He did not appear to be responding to internal stimuli. Attention and concentration were limited and his recent and remote memory appeared impaired. He is alert and oriented to person, place and time. Insight and judgment are impaired. Impulse control is impaired. Vitals/I&O/Wt Last Vital Signs Temp 97.7 F 05/18/25 14:00 Pulse 71 05/18/25 14:00 Resp 18 05/18/25 14:00 BP 118/72 05/18/25 14:00 Pulse Ox 95 05/18/25 14:00 O2 Del Method Room Air 05/18/25 06:00 Data NPU 05/12/25 15:48 05/12/25 15:48 A&P Assessment and plan 1. Encephalopathy acute: 2. Bipolar disorder: 3. Manic behavior: 4. Alcohol use disorder: 5. Lumbar stenosis with neurogenic claudication: 6. Hx of Wernicke's encephalopathy: 7. Psychosis: 8. Cannabis use disorder: Plan: This is a 44-year-old white male with a reported long history of bipolar disorder with recent discharge 2 weeks prior from NPU with concerns about encephalopathy although not clear about Warnicke type. 1. Continue Seroquel xr 700mg at 6PM. Continue abilify 15mg daily. Increase depakote ER at 1500mg daily. Depakote level was 58.5. 2. Encourage individual, group and milieu therapy. 3. Continue every 15 minute checks for safety. 4. Encourage sober living treatment after discharge at the highest level of care to which she is willing to commit. 5. Patient needs MRI and LP to complete workup for psychosis and encephalopathy. Will confirm the particular labs to be ordered from LP. Patient continues to have a fluctuating course of consciousness and illness with periods of increased flight of ideas and increased psychomotor activity in unpredictable manner. Court hearing for 21-day hold earlier today and he was placed on a hold. Had MRI this morning 05/06/2025. Working with radiology and LP performed 05/09/2025. Awaiting remaining labs. 6. Ordered hospitalist consult to take a look at whether there are any other areas of investigation that the current things from the LP might suggest including take disease to her some other rare but possible condition. Will monitor findings and follow recommendations as indicated. 7. There are several studies that are send outs that are pending but otherwise everything is come back essentially normal with no explanation for his acute changes. We will await those final results and likely will need to move towards supportive treatment of his new abnormal normal. PDMP PDMP Reviewed: Not Reviewed Involuntary Hold Information 2 Hold Status: Legal Status: 21 Day Hold Date/Time Hold Expires: 05/24/25 Attestations NPU 2 Medical Necessity Statement*: Inpatient hospitalization is medically necessary and the clinically appropriate intervention at this time. We will monitor medications and make changes as indicated. The patient's likely length of stay is 4-7 days. Coding Level of Care Code Acute Code for [facility] Fwd Diagnoses Encephalopathy acute G93.40 Bipolar disorder F31.9 Manic behavior F30.10 Alcohol use disorder F10.90 Lumbar stenosis with neurogenic claudication M48.062 Hx of Wernicke's encephalopathy Z86.39 Psychosis F29 Cannabis use disorder F12.90
[2025-05-18] MEDS: quetiapine XR (24HR) 50 mg Tablet 100 MG PO (17:27)
[2025-05-18] MEDS: quetiapine XR (24HR) 300 mg Tablet 600 MG PO (17:27)
[2025-05-18 18:59] LABS: RMSF IGG NOT DETECTED; RMSF IGM NOT DETECTED
[2025-05-18 19:36] VITALS: BP 122/71; PULSE 96; RESP 18; TEMP 36.5; O2SAT 99
[2025-05-18 19:50] LABS: St. Louis Enceph.Virus IGG CSF <1:1; St. Louis Enceph.Virus IGM CSF <1:1
[2025-05-19 06:00] VITALS: BP 122/82; PULSE 77; RESP 18; O2SAT 97
[2025-05-19] MEDS: divalproex ER 500 mg Tablet (24H) 1000 MG PO (08:13)
[2025-05-19] MEDS: HYDROcodone-acetaminophen 5-325 mg Tablet 1 TAB PO ×2 (08:13→15:16)
[2025-05-19] MEDS: divalproex ER 250 mg Tablet (24H) PO (08:13)
[2025-05-19] MEDS: NADOLOL 40 MG 40 EACH PO (09:12)
[2025-05-19 14:00] VITALS: BP 132/83; PULSE 73; RESP 18; TEMP 35.9; O2SAT 97
--- NOTE | 2025-05-19 17:24 | W.PM.NPUPNS ---
Subjective NPU Subjective: Patient presented today reporting that he is feeling okay. He continues to await laboratory studies that have not returned but many have returned and been unremarkable. We discussed that we have been discussing his aftercare plan with his and she is trying to make a long-term plan that has him at home somewhat regardless of his condition. He is eager to be able to return home but we continue to discuss the importance of him being able to be safe at home and have some level of assistance given his behavior patterns. We discussed that we hope that he will be able to have some home time but his safety is paramount and with his THOMAS score we will still need to see improvement for discharge home without 24-hour surveillance to happen. He denied any side effects of medication. Mental Status Exam MSE Comments: This is a well-nourished well-developed white male in hospital scrubs with adequate grooming and fair eye contact with some tattoos on both arms. There continued to be increased psychomotor activation. There was no abnormal involuntary motor movements appreciated today with no shuffling gait. He was cooperative with exam in mild distress. Speech is pressured with normal volume but continued evidence of dysarthria. Mood described as okay His affect was flat. Thought process was tangential with evidence of flight of ideas. Thought content: Patient denied suicidal or homicidal ideation. There were no delusions reported with no magical thinking appreciated. He did not appear to be responding to internal stimuli. Attention and concentration were limited and his recent and remote memory appeared impaired. He is alert and oriented to person, place and time. Insight and judgment are impaired. Impulse control is impaired. Vitals/I&O/Wt Last Vital Signs Temp 96.6 F L 05/19/25 14:00 Pulse 73 05/19/25 14:00 Resp 18 05/19/25 14:00 BP 132/83 05/19/25 14:00 Pulse Ox 97 05/19/25 14:00 O2 Del Method Room Air 05/19/25 06:00 Weight last 48 hrs Weight 77.292 kg Data NPU 05/12/25 15:48 05/12/25 15:48 A&P Assessment and plan 1. Encephalopathy acute: 2. Bipolar disorder: 3. Manic behavior: 4. Alcohol use disorder: 5. Lumbar stenosis with neurogenic claudication: 6. Hx of Wernicke's encephalopathy: 7. Psychosis: 8. Cannabis use disorder: Plan: This is a 44-year-old white male with a reported long history of bipolar disorder with recent discharge 2 weeks prior from NPU with concerns about encephalopathy although not clear about Warnicke type. 1. Continue Seroquel xr 700mg at 6PM. Continue abilify 15mg daily. Increase depakote ER at 1500mg daily. Depakote level was 58.5. 2. Encourage individual, group and milieu therapy. 3. Continue every 15 minute checks for safety. 4. Encourage sober living treatment after discharge at the highest level of care to which she is willing to commit. 5. Patient needs MRI and LP to complete workup for psychosis and encephalopathy. Will confirm the particular labs to be ordered from LP. Patient continues to have a fluctuating course of consciousness and illness with periods of increased flight of ideas and increased psychomotor activity in unpredictable manner. Court hearing for 21-day hold earlier today and he was placed on a hold. Had MRI this morning 05/06/2025. Working with radiology and LP performed 05/09/2025. Awaiting remaining labs. 6. Ordered hospitalist consult to take a look at whether there are any other areas of investigation that the current things from the LP might suggest including take disease to her some other rare but possible condition. Will monitor findings and follow recommendations as indicated. 7. There are several studies that are send outs that are pending but otherwise everything is come back essentially normal with no explanation for his acute changes. We will await those final results and likely will need to move towards supportive treatment of his new abnormal normal. PDMP PDMP Reviewed: Not Reviewed Involuntary Hold Information Hold Status: Legal Status: 21 Day Hold Date/Time Hold Expires: 05/24/25 Attestations NPU Medical Necessity Statement*: Inpatient hospitalization is medically necessary and the clinically appropriate intervention at this time. We will monitor medications and make changes as indicated. The patient's likely length of stay is 4-7 days. Coding Level of Care Code Acute Code for [facility] Fwd Diagnoses Encephalopathy acute G93.40 Bipolar disorder F31.9 Manic behavior F30.10 Alcohol use disorder F10.90 Lumbar stenosis with neurogenic claudication M48.062 Hx of Wernicke's encephalopathy Z86.39 Psychosis F29 Cannabis use disorder F12.90
[2025-05-19] MEDS: quetiapine XR (24HR) 50 mg Tablet 100 MG PO (17:42)
[2025-05-19] MEDS: quetiapine XR (24HR) 300 mg Tablet 600 MG PO (17:42)
[2025-05-19] MEDS: artificial tears Op Soln 15 mL Btl 1 DROP EYE-BOTH (21:34)
[2025-05-19 22:00] VITALS: BP 107/63; PULSE 106; RESP 16; O2SAT 98
--- NOTE | 2025-05-20 03:55 | PC.NURSE ---
pt pill this nurse was speaking with pt roommate about his pain and pt took a pill off of his person and gave it to this nurse to give to roommate. pill confiscated. and destroyed with jennifer duke.
[2025-05-20 06:00] VITALS: BP 119/75; PULSE 79; RESP 16; TEMP 36.4; O2SAT 95
[2025-05-20] MEDS: divalproex ER 500 mg Tablet (24H) 1000 MG PO (07:51)
[2025-05-20] MEDS: divalproex ER 250 mg Tablet (24H) PO (07:52)
[2025-05-20] MEDS: NADOLOL 40 MG 40 EACH PO (07:52)
[2025-05-20] MEDS: HYDROcodone-acetaminophen 5-325 mg Tablet 1 TAB PO ×2 (07:52→14:55)
[2025-05-20 14:00] VITALS: BP 113/75; PULSE 74; RESP 18; TEMP 37; O2SAT 99
[2025-05-20 14:09] LABS: Lyme Disease AB (IGG),IBL NO BANDS DETECTED; Lyme Disease AB (IGM), IBL NO BANDS DETECTED
[2025-05-20] MEDS: quetiapine XR (24HR) 300 mg Tablet 600 MG PO (17:17)
[2025-05-20] MEDS: quetiapine XR (24HR) 50 mg Tablet 100 MG PO (17:17)
--- NOTE | 2025-05-20 17:32 | W.PM.NPUPNS ---
Subjective NPU Subjective: 44-year-old male with psychosis currently reporting that he feels okay. 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 He reported desire to return to live with his . He had reported no side effects from his medications at this time. He reported that he had been sleeping well. Staff notes the patient had remained at times intrusive but was redirectable. He reports that he continued to wait for any results from his lumbar puncture. He had reported relief that he found out that it was likely not cancer. He denied any suicidal thoughts at this time. Mental Status Exam MSE Comments: This is a well-nourished well-developed white male in hospital scrubs with adequate grooming and fair eye contact with some tattoos on both arms. There continued to be increased psychomotor activation. There was no abnormal involuntary motor movements appreciated today with no shuffling gait. He was cooperative with exam in mild distress. Speech is pressured with normal volume but continued evidence of mild dysarthria. Mood described as okay His affect was somewhat restricted. Thought process was linear still. Thought content: Patient denied suicidal or homicidal ideation. There were no delusions reported with no magical thinking appreciated. He did not appear to be responding to internal stimuli. Attention and concentration were limited and his recent and remote memory appeared impaired. He is alert and oriented to person, place and time. Insight and judgment are impaired. Impulse control is impaired. Vitals/I&O/Wt Last Vital Signs Temp 98.6 F 05/20/25 14:00 Pulse 74 05/20/25 14:00 Resp 18 05/20/25 14:00 BP 113/75 05/20/25 14:00 Pulse Ox 99 05/20/25 14:00 O2 Del Method Room Air 05/20/25 06:00 Weight last 48 hrs Weight 77.292 kg Data NPU 05/12/25 15:48 05/12/25 15:48 A&P Assessment and plan 1. Encephalopathy acute: 2. Bipolar disorder: 3. Manic behavior: 4. Alcohol use disorder: 5. Lumbar stenosis with neurogenic claudication: 6. Hx of Wernicke's encephalopathy: 7. Psychosis: 8. Cannabis use disorder: Plan: This is a 44-year-old white male with a reported long history of bipolar disorder with recent discharge 2 weeks prior from NPU with concerns about encephalopathy although not clear about Warnicke type. 1. Continue Seroquel xr 700mg at 6PM. Continue abilify 15mg daily. Continue depakote ER at 1500mg daily. Depakote level was 58.5. 2. Encourage individual, group and milieu therapy. 3. Continue every 15 minute checks for safety. 4. Encourage sober living treatment after discharge at the highest level of care to which she is willing to commit. 5. Patient needs MRI and LP to complete workup for psychosis and encephalopathy. Will confirm the particular labs to be ordered from LP. Patient continues to have a fluctuating course of consciousness and illness with periods of increased flight of ideas and increased psychomotor activity in unpredictable manner. Court hearing for 21-day hold earlier today and he was placed on a hold. Had MRI this morning 05/06/2025. Working with radiology and LP performed 05/09/2025. Awaiting remaining labs. 6. Ordered hospitalist consult to take a look at whether there are any other areas of investigation that the current things from the LP might suggest including take disease to her some other rare but possible condition. Will monitor findings and follow recommendations as indicated. 7. There are several studies that are send outs that are pending but otherwise everything is come back essentially normal with no explanation for his acute changes. We will await those final results and likely will need to move towards supportive treatment of his new abnormal normal. PDMP PDMP Reviewed: Not Reviewed Involuntary Hold Information Hold Status: Legal Status: 90 Day Hold Date/Time Hold Expires: 90 day hold Attestations NPU Medical Necessity Statement*: Inpatient hospitalization is medically necessary and the clinically appropriate intervention at this time. We will monitor medications and make changes as indicated. The patient's likely length of stay is 4-7 days. Coding Level of Care Code Acute Code for [facility] Fwd Diagnoses Encephalopathy acute G93.40 Bipolar disorder F31.9 Manic behavior F30.10 Alcohol use disorder F10.90 Lumbar stenosis with neurogenic claudication M48.062 Hx of Wernicke's encephalopathy Z86.39 Psychosis F29 Cannabis use disorder F12.90
[2025-05-20] MEDS: artificial tears Op Soln 15 mL Btl 1 DROP EYE-BOTH (19:40)
[2025-05-20 21:55] VITALS: BP 115/81; PULSE 89; RESP 16; TEMP 36.6; O2SAT 99
[2025-05-21 06:00] VITALS: BP 110/78; PULSE 91; RESP 16; TEMP 34.6; O2SAT 97
[2025-05-21] MEDS: NADOLOL 40 MG 40 EACH PO (08:34)
[2025-05-21] MEDS: HYDROcodone-acetaminophen 5-325 mg Tablet 1 TAB PO ×2 (08:34→20:10)
[2025-05-21] MEDS: divalproex ER 250 mg Tablet (24H) 500 MG PO (08:34)
[2025-05-21] MEDS: divalproex ER 500 mg Tablet (24H) 1000 MG PO (08:34)
[2025-05-21 13:28] VITALS: BP 111/66; PULSE 69; RESP 16; TEMP 37.1; O2SAT 100
--- NOTE | 2025-05-21 15:11 | PC.NURSE ---
off unit for court
--- NOTE | 2025-05-21 16:03 | PC.NURSE ---
Pt back from court - on unit.
--- NOTE | 2025-05-21 16:06 | PC.NURSE ---
Pt. returned from court hearing.
--- NOTE | 2025-05-21 17:24 | W.PM.NPUPNS ---
Subjective NPU Subjective: 44-year-old male with bipolar disorder currently reporting no significant changes. He reports that he was able to sleep. Patient's continued to indicate that she did not feel comfortable with the patient returning home. Patient's labs remained pending regarding causes of encephalopathy. He had been able to sleep at night. There have been no significant side effects reported from the medication regimen. The patient reported no suicidal or homicidal thoughts. Mental Status Exam MSE Comments: This is a well-nourished well-developed white male in hospital scrubs with adequate grooming and fair eye contact with some tattoos on both arms. There continued to be increased psychomotor activation. There was no abnormal involuntary motor movements appreciated today with no shuffling gait. He was cooperative with exam in mild distress. Speech is normal in rate with diminished volume but continued evidence of mild dysarthria. Mood described as good His affect was somewhat restricted. Thought process was linear still. Thought content: Patient denied suicidal or homicidal ideation. There were no delusions reported with no magical thinking appreciated. He did not appear to be responding to internal stimuli. Attention and concentration were limited and his recent and remote memory appeared impaired. He is alert and oriented to person, place and time. Insight and judgment are impaired. Impulse control is impaired. Vitals/I&O/Wt Last Vital Signs Temp 98.8 F 05/21/25 13:28 Pulse 69 05/21/25 13:28 Resp 16 05/21/25 13:28 BP 111/66 05/21/25 13:28 Pulse Ox 100 05/21/25 13:28 O2 Del Method Room Air 05/21/25 13:28 Data NPU 05/12/25 15:48 05/12/25 15:48 A&P Assessment and plan 1. Encephalopathy acute: 2. Bipolar disorder: 3. Manic behavior: 4. Alcohol use disorder: 5. Lumbar stenosis with neurogenic claudication: 6. Hx of Wernicke's encephalopathy: 7. Psychosis: 8. Cannabis use disorder: Plan: This is a 44-year-old white male with a reported long history of bipolar disorder with recent discharge 2 weeks prior from NPU with concerns about encephalopathy although not clear about Warnicke type. 1. Continue Seroquel xr 700mg at 6PM. Continue abilify 15mg daily. Continue depakote ER at 1500mg daily. Depakote level was 58.5. 2. Encourage individual, group and milieu therapy. 3. Continue every 15 minute checks for safety. 4. Encourage sober living treatment after discharge at the highest level of care to which she is willing to commit. 5. Patient needs MRI and LP to complete workup for psychosis and encephalopathy. Will confirm the particular labs to be ordered from LP. Patient continues to have a fluctuating course of consciousness and illness with periods of increased flight of ideas and increased psychomotor activity in unpredictable manner. Court hearing for 21-day hold earlier today and he was placed on a hold. Had MRI this morning 05/06/2025. Working with radiology and LP performed 05/09/2025. Awaiting remaining labs. 6. Ordered hospitalist consult to take a look at whether there are any other areas of investigation that the current things from the LP might suggest including take disease to her some other rare but possible condition. Will monitor findings and follow recommendations as indicated. 7. There are several studies that are send outs that are pending but otherwise everything is come back essentially normal with no explanation for his acute changes. We will await those final results and likely will need to move towards supportive treatment of his new abnormal normal. 8. Patient now on [address] hearing today. PDMP PDMP Reviewed: Not Reviewed Involuntary Hold Information Hold Status: Legal Status: 90 Day Hold Date/Time Hold Expires: 08/19/2025 Attestations NPU Medical Necessity Statement*: Inpatient hospitalization is medically necessary and the clinically appropriate intervention at this time. We will monitor medications and make changes as indicated. The patient's likely length of stay is 4-7 days. Coding Level of Care Code Acute Code for [facility] Fwd Diagnoses Encephalopathy acute G93.40 Bipolar disorder F31.9 Manic behavior F30.10 Alcohol use disorder F10.90 Lumbar stenosis with neurogenic claudication M48.062 Hx of Wernicke's encephalopathy Z86.39 Psychosis F29 Cannabis use disorder F12.90
[2025-05-21] MEDS: quetiapine XR (24HR) 300 mg Tablet 600 MG PO (18:15)
[2025-05-21] MEDS: quetiapine XR (24HR) 50 mg Tablet 100 MG PO (18:16)
[2025-05-21 19:46] VITALS: BP 116/77; PULSE 84; RESP 18; TEMP 36.6; O2SAT 97
[2025-05-22 06:00] VITALS: BP 101/66; PULSE 81; RESP 16; TEMP 36.7; O2SAT 97
[2025-05-22] MEDS: divalproex ER 250 mg Tablet (24H) 500 MG PO (08:49)
[2025-05-22] MEDS: divalproex ER 500 mg Tablet (24H) 1000 MG PO (08:50)
[2025-05-22] MEDS: NADOLOL 40 MG 40 EACH PO (09:47)
--- NOTE | 2025-05-22 09:56 | NUR.SHIFT ---
Pt states that she slept good. Pt reports anxiety and depression a 7/10. No reports of SI/HI or hallucinations. He rates his pain a 6/10 in his back and uses PRN medications for that. He is calm and cooperative on assessment.
[2025-05-22] MEDS: HYDROcodone-acetaminophen 5-325 mg Tablet 1 TAB PO ×2 (11:42→19:19)
[2025-05-22 14:00] VITALS: BP 106/73; PULSE 74; RESP 21; TEMP 37; O2SAT 99
--- NOTE | 2025-05-22 16:00 | P.NPUPN_ITS ---
Subjective NPU 2 Subjective: 44-year-old male with bipolar disorder c urrently reporting no significant changes. Results of the lumbar puncture had returned and showed no significant pathology including any infectious causes or the presence of any inflammatory related issues. The patient reported his mood is good. He reported no side effects from his medication regimen. He had reported adequate sleep. He had appeared less intrusive. Mental Status Exam 2 MSE Comments: This is a well-nourished well-developed white male in hospital scrubs with adequate grooming and fair eye contact with some tattoos on both arms. There continued to be increased psychomotor activation. There was no abnormal involuntary motor movements appreciated today with no shuffling gait. He was cooperative with exam in mild distress. Speech is normal in rate with diminished volume but continued evidence of mild dysarthria. Mood described as good His affect was somewhat restricted. Thought process was linear still. Thought content: Patient denied suicidal or homicidal ideation. There were no delusions reported with no magical thinking appreciated. He did not appear to be responding to internal stimuli. Attention and concentration were limited and his recent and remote memory appeared impaired. He is alert and oriented to person, place and time. Insight was poor. His judgment is improving. Impulse control is limited but improving. Vitals/I&O/Wt Last Vital Signs Temp 98.6 F 05/22/25 14:00 Pulse 74 05/22/25 14:00 Resp 21 H 05/22/25 14:00 BP 106/73 05/22/25 14:00 Pulse Ox 99 05/22/25 14:00 O2 Del Method Room Air 05/22/25 14:00 Data NPU 05/12/25 15:48 05/12/25 15:48 A&P Assessment and plan 1. Encephalopathy acute: 2. Bipolar disorder: 3. Manic behavior: 4. Alcohol use disorder: 5. Lumbar stenosis with neurogenic claudication: 6. Hx of Wernicke's encephalopathy: 7. Psychosis: 8. Cannabis use disorder: Plan: This is a 44-year-old white male with a reported long history of bipolar disorder with recent discharge 2 weeks prior from NPU with concerns about encephalopathy although not clear about Warnicke type. 1. Continue Seroquel xr 700mg at 6PM. Continue abilify 15mg daily. Continue depakote ER at 1500mg daily. Depakote level was 58.5 on last check on 05/02/25. 2. Encourage individual, group and milieu therapy. 3. Continue every 15 minute checks for safety. 4. Encourage sober living treatment after discharge at the highest level of care to which she is willing to commit. 5. Patient needs MRI and LP to complete workup for psychosis and encephalopathy. Will confirm the particular labs to be ordered from LP. Patient continues to have a fluctuating course of consciousness and illness with periods of increased flight of ideas and increased psychomotor activity in unpredictable manner. Court hearing for 21-day hold earlier today and he was placed on a hold. Had MRI this morning 05/06/2025. Working with radiology and LP performed 05/09/2025. Awaiting remaining labs. 6. Ordered hospitalist consult to take a look at whether there are any other areas of investigation that the current things from the LP might suggest including take disease to her some other rare but possible condition. Will monitor findings and follow recommendations as indicated. 7. There are several studies that are send outs that are pending but otherwise everything is come back essentially normal with no explanation for his acute changes. We will await those final results and likely will need to move towards supportive treatment of his new abnormal normal. 8. Patient now on [address] hearing today. Patient may be ready to return home soon, with LP studies essentially not supportive of a clear cause of encephalopathy. Consider high dose steroids, IVIG, or Plasma exchange if autoimmune encephalitis considered. PDMP PDMP Reviewed: Not Reviewed Involuntary Hold Information 2 Hold Status: Legal Status: 90 Day Hold Date/Time Hold Expires: 08/19/2025 Attestations NPU 2 Medical Necessity Statement*: Inpatient hospitalization is medically necessary and the clinically appropriate intervention at this time. We will monitor medications and make changes as indicated. The patient's likely length of stay is 4-7 days. Coding Level of Care Code Acute Code for [facility] Fwd Diagnoses Encephalopathy acute G93.40 Bipolar disorder F31.9 Manic behavior F30.10 Alcohol use disorder F10.90 Lumbar stenosis with neurogenic claudication M48.062 Hx of Wernicke's encephalopathy Z86.39 Psychosis F29 Cannabis use disorder F12.90
[2025-05-22] MEDS: quetiapine XR (24HR) 300 mg Tablet 600 MG PO (17:12)
[2025-05-22] MEDS: quetiapine XR (24HR) 50 mg Tablet 100 MG PO (17:13)
[2025-05-22 19:55] VITALS: BP 135/90; PULSE 83; RESP 18; O2SAT 98
[2025-05-23 06:00] VITALS: BP 96/63; PULSE 67; RESP 17; TEMP 36.4; O2SAT 99
[2025-05-23] MEDS: NADOLOL 40 MG 40 EACH PO (08:31)
[2025-05-23] MEDS: HYDROcodone-acetaminophen 5-325 mg Tablet 1 TAB PO ×2 (08:32→21:00)
[2025-05-23] MEDS: divalproex ER 250 mg Tablet (24H) 500 MG PO (08:32)
[2025-05-23] MEDS: divalproex ER 500 mg Tablet (24H) 1000 MG PO (08:32)
--- NOTE | 2025-05-23 11:43 | NUR.SHIFT ---
Pt states that he slept good last night. He is denying anxiety and depression. No reports of SI/HI or hallucinations. He rates his low back pain a 6/10 and requested his PRN Vicodin for some relief this morning. He is calm and cooperative on assessment.
[2025-05-23 14:00] VITALS: BP 119/82; PULSE 82; RESP 16; TEMP 36.6; O2SAT 94
--- NOTE | 2025-05-23 14:59 | P.NPUPN_ITS ---
Subjective NPU 2 Subjective: 44-year-old male with bipolar disorder c urrently admitted on 90 day hold. The patient has been compliant here on the unit. He reported no side effects. He has been less intrusive. He continues to engage in his own self-care. The patient had reported adequate sleep. He continued to show evidence of improvement in regards to socializing and appeared to be more redirectable. The patient had reported that he had problems with his balance and continue to keep a ear plug in his right ear only. Mental Status Exam 2 MSE Comments: This is a well-nourished well-developed white male in hospital scrubs with adequate grooming and fair eye contact with some tattoos on both arms. There was mild psychomotor retardation. There was no abnormal involuntary motor movements appreciated today with no shuffling gait. He was cooperative with exam in mild distress. Speech is normal in rate with diminished volume but continued evidence of mild dysarthria. Mood described as okay. His affect was somewhat restricted. Thought process was linear. Thought content: Patient denied suicidal or homicidal ideation. There were no delusions reported with no magical thinking appreciated. He did not appear to be responding to internal stimuli. Attention and concentration were limited and his recent and remote memory appeared impaired. He is alert and oriented to person, place and time. Insight was poor. His judgment is improving. Impulse control is limited but improving. Vitals/I&O/Wt Last Vital Signs Temp 97.8 F 05/23/25 14:00 Pulse 82 05/23/25 14:00 Resp 16 05/23/25 14:00 BP 119/82 05/23/25 14:00 Pulse Ox 94 05/23/25 14:00 O2 Del Method Room Air 05/23/25 14:00 Data NPU 05/12/25 15:48 05/12/25 15:48 A&P Assessment and plan 1. Encephalopathy acute: 2. Bipolar disorder: 3. Manic behavior: 4. Alcohol use disorder: 5. Lumbar stenosis with neurogenic claudication: 6. Hx of Wernicke's encephalopathy: 7. Psychosis: 8. Cannabis use disorder: Plan: This is a 44-year-old white male with a reported long history of bipolar disorder with recent discharge 2 weeks prior from NPU with concerns about encephalopathy although not clear about Warnicke type. 1. Continue Seroquel xr 700mg at 6PM. Continue abilify 15mg daily. Continue depakote ER at 1500mg daily. Depakote level was 58.5 on last check on 05/02/25. 2. Encourage individual, group and milieu therapy. 3. Continue every 15 minute checks for safety. 4. Encourage sober living treatment after discharge at the highest level of care to which she is willing to commit. 5. Patient needs MRI and LP to complete workup for psychosis and encephalopathy. Will confirm the particular labs to be ordered from LP. Patient continues to have a fluctuating course of consciousness and illness with periods of increased flight of ideas and increased psychomotor activity in unpredictable manner. Court hearing for 21-day hold earlier today and he was placed on a hold. Had MRI this morning 05/06/2025. Working with radiology and LP performed 05/09/2025. Awaiting remaining labs. 6. Ordered hospitalist consult to take a look at whether there are any other areas of investigation that the current things from the LP might suggest including take disease to her some other rare but possible condition. Will monitor findings and follow recommendations as indicated. 7. There are several studies that are send outs that are pending but otherwise everything is come back essentially normal with no explanation for his acute changes. We will await those final results and likely will need to move towards supportive treatment of his new abnormal normal. 8. Patient now on [address] hearing today. Patient may be ready to return home soon, with LP studies essentially not supportive of a clear cause of encephalopathy. Consider high dose steroids, IVIG, or Plasma exchange if autoimmune encephalitis considered. Level 2 to be completed with planning to file for guardianship. PDMP PDMP Reviewed: Not Reviewed Involuntary Hold Information 2 Hold Status: Legal Status: 90 Day Hold Date/Time Hold Expires: 08/19/2025 Attestations NPU 2 Medical Necessity Statement*: Inpatient hospitalization is medically necessary and the clinically appropriate intervention at this time. We will monitor medications and make changes as indicated. The patient's likely length of stay is 4-7 days. Coding Level of Care Code Acute Code for [facility] Fwd Diagnoses Encephalopathy acute G93.40 Bipolar disorder F31.9 Manic behavior F30.10 Alcohol use disorder F10.90 Lumbar stenosis with neurogenic claudication M48.062 Hx of Wernicke's encephalopathy Z86.39 Psychosis F29 Cannabis use disorder F12.90
[2025-05-23] MEDS: artificial tears Op Soln 15 mL Btl 1 DROP EYE-BOTH (17:58)
[2025-05-23] MEDS: quetiapine XR (24HR) 50 mg Tablet 100 MG PO (17:58)
[2025-05-23] MEDS: quetiapine XR (24HR) 300 mg Tablet 600 MG PO (17:58)
[2025-05-23 19:55] VITALS: BP 124/80; PULSE 74; RESP 18; TEMP 36.6; O2SAT 96
[2025-05-24 06:00] VITALS: BP 97/62; PULSE 65; RESP 16; O2SAT 100
[2025-05-24] MEDS: divalproex ER 500 mg Tablet (24H) 1000 MG PO (07:32)
[2025-05-24] MEDS: divalproex ER 250 mg Tablet (24H) 500 MG PO (07:33)
[2025-05-24] MEDS: HYDROcodone-acetaminophen 5-325 mg Tablet 1 TAB PO ×3 (08:00→20:44)
[2025-05-24] MEDS: NADOLOL 40 MG 40 EACH PO (08:01)
--- NOTE | 2025-05-24 13:35 | P.NPUPN_ITS ---
Subjective NPU 2 Subjective: 44-year-old male with bipolar disorder c urrently admitted on 90 day hold. No substantial changes were appreciated in behavior on the unit. He continues to sleep well. The patient had a visit with his today that appeared to go well. There was a continued plan for the mother to file guardianship. He stated that he was hopeful at being able to go home soon. No behavioral problems were noted. The patient had been less intrusive on the unit. He had no problems with redirection and appeared to be engaging in self-care without any issue. Mental Status Exam 2 MSE Comments: This is a well-nourished well-developed white male in hospital scrubs with adequate grooming and fair eye contact with some tattoos on both arms. There was mild psychomotor slowing. There was no abnormal involuntary motor movements appreciated today with no shuffling gait. He was cooperative with exam in no acute distress. Speech is normal in rate with diminished volume but continued evidence of mild dysarthria. Mood described as pretty good His affect remained flat. Thought process was linear. Thought content: Patient denied suicidal or homicidal ideation. There were no delusions reported with no magical thinking appreciated. He did not appear to be responding to internal stimuli. Attention and concentration were limited and his recent and remote memory appeared impaired. He is alert and oriented to person, place and time. Insight was limited. His judgment is limited. Impulse control is limited but improving. Vitals/I&O/Wt Last Vital Signs Temp 97.9 F 05/23/25 19:55 Pulse 65 05/24/25 06:00 Resp 16 05/24/25 06:00 BP 97/62 05/24/25 06:00 Pulse Ox 100 05/24/25 06:00 O2 Del Method Room Air 05/24/25 06:00 Data NPU 05/12/25 15:48 05/12/25 15:48 A&P Assessment and plan 1. Encephalopathy acute: 2. Bipolar disorder: 3. Manic behavior: 4. Alcohol use disorder: 5. Lumbar stenosis with neurogenic claudication: 6. Hx of Wernicke's encephalopathy: 7. Psychosis: 8. Cannabis use disorder: Plan: This is a 44-year-old white male with a reported long history of bipolar disorder with recent discharge 2 weeks prior from NPU with concerns about encephalopathy although not clear about Warnicke type. 1. Continue Seroquel xr 700mg at 6PM. Continue abilify 15mg daily. Continue depakote ER at 1500mg daily. Depakote level was 58.5 on last check on 05/02/25. 2. Encourage individual, group and milieu therapy. 3. Continue every 15 minute checks for safety. 4. Encourage sober living treatment after discharge at the highest level of care to which she is willing to commit. 5. Patient needs MRI and LP to complete workup for psychosis and encephalopathy. Will confirm the particular labs to be ordered from LP. Patient continues to have a fluctuating course of consciousness and illness with periods of increased flight of ideas and increased psychomotor activity in unpredictable manner. Court hearing for 21-day hold earlier today and he was placed on a hold. Had MRI this morning 05/06/2025. Working with radiology and LP performed 05/09/2025. Awaiting remaining labs. 6. Ordered hospitalist consult to take a look at whether there are any other areas of investigation that the current things from the LP might suggest including take disease to her some other rare but possible condition. Will monitor findings and follow recommendations as indicated. 7. There are several studies that are send outs that are pending but otherwise everything is come back essentially normal with no explanation for his acute changes. We will await those final results and likely will need to move towards supportive treatment of his new abnormal normal. 8. Patient now on [address] hearing today. Patient may be ready to return home soon, with LP studies essentially not supportive of a clear cause of encephalopathy. Consider high dose steroids, IVIG, or Plasma exchange if autoimmune encephalitis considered. Level 2 to be completed with planning to file for guardianship. Letter of support for guardianship completed today. PDMP PDMP Reviewed: Not Reviewed Involuntary Hold Information 2 Hold Status: Legal Status: 90 Day Hold Date/Time Hold Expires: 08/19/2025 Attestations NPU 2 Medical Necessity Statement*: Inpatient hospitalization is medically necessary and the clinically appropriate intervention at this time. We will monitor medications and make changes as indicated. The patient's likely length of stay is 4-7 days. Coding Level of Care Code Acute Code for [facility] Fwd Diagnoses Encephalopathy acute G93.40 Bipolar disorder F31.9 Manic behavior F30.10 Alcohol use disorder F10.90 Lumbar stenosis with neurogenic claudication M48.062 Hx of Wernicke's encephalopathy Z86.39 Psychosis F29 Cannabis use disorder F12.90
[2025-05-24 14:00] VITALS: BP 112/78; PULSE 76; RESP 16; TEMP 36.6; O2SAT 100
[2025-05-24] MEDS: quetiapine XR (24HR) 50 mg Tablet 100 MG PO (17:42)
[2025-05-24] MEDS: quetiapine XR (24HR) 300 mg Tablet 600 MG PO (17:42)
[2025-05-24 20:51] VITALS: BP 123/79; PULSE 88; RESP 18; TEMP 36.9; O2SAT 98
[2025-05-25 06:00] VITALS: BP 121/78; PULSE 86; RESP 18; TEMP 37.1; O2SAT 98
[2025-05-25] MEDS: divalproex ER 500 mg Tablet (24H) 1000 MG PO (08:20)
[2025-05-25] MEDS: divalproex ER 250 mg Tablet (24H) 500 MG PO (08:20)
[2025-05-25] MEDS: NADOLOL 40 MG 40 EACH PO (08:25)
[2025-05-25 12:13] VITALS: BP 109/69; PULSE 88; RESP 18; TEMP 37.2; O2SAT 97
[2025-05-25 13:47] VITALS: BP 115/75; PULSE 86; RESP 15; TEMP 38.1; O2SAT 96
--- NOTE | 2025-05-25 14:37 | P.NPUPN_ITS ---
Subjective NPU 2 Subjective: 44-year-old male with bipolar disorder c urrently admitted on 90 day hold. Patient reported no side effects from his medications. He reports that he has been feeling somewhat sick and reported some nausea today. He was lying in bed. He reported no worsening mood. He reported a good visit with his 2 days ago. He reported adequate sleep. He had been less intrusive. He had reported having significant boredom. Patient complaining of some diarrhea today. Mental Status Exam 2 MSE Comments: This is a well-nourished well-developed white male in hospital scrubs with adequate grooming and fair eye contact with some tattoos on both arms. There was mild psychomotor slowing. There was no abnormal involuntary motor movements appreciated today with no shuffling gait. He was cooperative with exam in moderate distress lying in bed. Speech is normal in rate with diminished volume but continued evidence of mild dysarthria. Mood described as not good His affect remained flat. Thought process was linear. Thought content: Patient denied suicidal or homicidal ideation. There were no delusions reported with no magical thinking appreciated. He did not appear to be responding to internal stimuli. Attention and concentration were limited and his recent and remote memory appeared impaired. He is alert and oriented to person, place and time. Insight was limited. His judgment is limited. Impulse control is limited but improving. Vitals/I&O/Wt Last Vital Signs Temp 100.5 F H 05/25/25 13:47 Pulse 86 05/25/25 13:47 Resp 15 05/25/25 13:47 BP 115/75 05/25/25 13:47 Pulse Ox 96 05/25/25 13:47 O2 Del Method Room Air 05/25/25 12:13 Data NPU 05/12/25 15:48 05/12/25 15:48 A&P Assessment and plan 1. Encephalopathy acute: 2. Bipolar disorder: 3. Manic behavior: 4. Alcohol use disorder: 5. Lumbar stenosis with neurogenic claudication: 6. Hx of Wernicke's encephalopathy: 7. Psychosis: 8. Cannabis use disorder: Plan: This is a 44-year-old white male with a reported long history of bipolar disorder with recent discharge 2 weeks prior from NPU with concerns about encephalopathy although not clear about Warnicke type. 1. Continue Seroquel xr 700mg at 6PM. Continue abilify 15mg daily. Continue depakote ER at 1500mg daily. Depakote level was 58.5 on last check on 05/02/25. CHECK depakote level in am on 05/26/25. 2. Encourage individual, group and milieu therapy. 3. Continue every 15 minute checks for safety. 4. Encourage sober living treatment after discharge at the highest level of care to which she is willing to commit. 5. Patient needs MRI and LP to complete workup for psychosis and encephalopathy. Will confirm the particular labs to be ordered from LP. Patient continues to have a fluctuating course of consciousness and illness with periods of increased flight of ideas and increased psychomotor activity in unpredictable manner. Court hearing for 21-day hold earlier today and he was placed on a hold. Had MRI this morning 05/06/2025. Working with radiology and LP performed 05/09/2025. Awaiting remaining labs. 6. Ordered hospitalist consult to take a look at whether there are any other areas of investigation that the current things from the LP might suggest including take disease to her some other rare but possible condition. Will monitor findings and follow recommendations as indicated. 7. There are several studies that are send outs that are pending but otherwise everything is come back essentially normal with no explanation for his acute changes. We will await those final results and likely will need to move towards supportive treatment of his new abnormal normal. 8. Patient now on [address] hearing today. Patient may be ready to return home soon, with LP studies essentially not supportive of a clear cause of encephalopathy. Consider high dose steroids, IVIG, or Plasma exchange if autoimmune encephalitis considered. Level 2 to be completed with planning to file for guardianship. Letter of support for guardianship completed today. PDMP PDMP Reviewed: Not Reviewed Involuntary Hold Information 2 Hold Status: Legal Status: 90 Day Hold Date/Time Hold Expires: 08/19/2025 Attestations NPU 2 Medical Necessity Statement*: Inpatient hospitalization is medically necessary and the clinically appropriate intervention at this time. We will monitor medications and make changes as indicated. The patient's likely length of stay is 4-7 days. Coding Level of Care Code Acute Code for [facility] Fwd Diagnoses Encephalopathy acute G93.40 Bipolar disorder F31.9 Manic behavior F30.10 Alcohol use disorder F10.90 Lumbar stenosis with neurogenic claudication M48.062 Hx of Wernicke's encephalopathy Z86.39 Psychosis F29 Cannabis use disorder F12.90
[2025-05-25] MEDS: HYDROcodone-acetaminophen 5-325 mg Tablet 1 TAB PO (15:31)
[2025-05-25] MEDS: quetiapine XR (24HR) 300 mg Tablet 600 MG PO (17:01)
[2025-05-25] MEDS: quetiapine XR (24HR) 50 mg Tablet 100 MG PO (17:01)
[2025-05-25 19:59] VITALS: BMI 23.1
[2025-05-25 20:05] VITALS: BP 107/66; PULSE 89; RESP 17; TEMP 37; O2SAT 94
[2025-05-26 06:00] VITALS: BP 117/75; PULSE 81; RESP 16; TEMP 37; O2SAT 93
[2025-05-26] MEDS: divalproex ER 500 mg Tablet (24H) 1000 MG PO (07:08)
[2025-05-26] MEDS: divalproex ER 250 mg Tablet (24H) 500 MG PO (07:09)
[2025-05-26] MEDS: NADOLOL 40 MG 40 EACH PO (08:19)
[2025-05-26] MEDS: HYDROcodone-acetaminophen 5-325 mg Tablet 1 TAB PO (08:50)
--- NOTE | 2025-05-26 13:34 | P.NPUPN_ITS ---
Subjective NPU 2 Subjective: 44-year-old male with bipolar disorder c urrently admitted on 90 day hold. Patient reported no side effects from his medications. He was pleasant and cooperative on the unit. He reported that his stomach was feeling better. He reported adequate sleep. He required no as needed medications. He continued to show evidence of decreased intrusiveness on the unit. Mental Status Exam 2 MSE Comments: This is a well-nourished well-developed white male in hospital scrubs with adequate grooming and fair eye contact with some tattoos on both arms. There was mild psychomotor slowing. There was no abnormal involuntary motor movements appreciated today with no shuffling gait. He was cooperative with exam in no acute distress today. Speech is decreased in rate with diminished volume but continued evidence of mild dysarthria. Mood described as better His affect was restricted. Thought process was linear. Thought content: Patient denied suicidal or homicidal ideation. There were no delusions reported with no magical thinking appreciated. He did not appear to be responding to internal stimuli. Attention and concentration were limited and his recent and remote memory appeared impaired. He is alert and oriented to person, place and time. Insight was limited. His judgment is limited. Impulse control is limited but improving. Vitals/I&O/Wt Last Vital Signs Temp 98.6 F 05/26/25 06:00 Pulse 81 05/26/25 06:00 Resp 16 05/26/25 06:00 BP 117/75 05/26/25 06:00 Pulse Ox 93 05/26/25 06:00 O2 Del Method Room Air 05/26/25 06:00 Weight last 48 hrs Weight 81.817 kg Data NPU 05/12/25 15:48 05/12/25 15:48 A&P Assessment and plan 1. Encephalopathy acute: 2. Bipolar disorder: 3. Manic behavior: 4. Alcohol use disorder: 5. Lumbar stenosis with neurogenic claudication: 6. Hx of Wernicke's encephalopathy: 7. Psychosis: 8. Cannabis use disorder: Plan: This is a 44-year-old white male with a reported long history of bipolar disorder with recent discharge 2 weeks prior from NPU with concerns about encephalopathy although not clear about Warnicke type. 1. Continue Seroquel xr 700mg at 6PM. Decrease abilify to 10mg daily. Continue depakote ER at 1500mg daily. Depakote level was 58.5 on last check on 05/02/25. Depakote level was 78.9 on 05/25/25. 2. Encourage individual, group and milieu therapy. 3. Continue every 15 minute checks for safety. 4. Encourage sober living treatment after discharge at the highest level of care to which she is willing to commit. 5. Patient needs MRI and LP to complete workup for psychosis and encephalopathy. Will confirm the particular labs to be ordered from LP. Patient continues to have a fluctuating course of consciousness and illness with periods of increased flight of ideas and increased psychomotor activity in unpredictable manner. Court hearing for 21-day hold earlier today and he was placed on a hold. Had MRI this morning 05/06/2025. Working with radiology and LP performed 05/09/2025. Awaiting remaining labs. 6. Ordered hospitalist consult to take a look at whether there are any other areas of investigation that the current things from the LP might suggest including take disease to her some other rare but possible condition. Will monitor findings and follow recommendations as indicated. 7. There are several studies that are send outs that are pending but otherwise everything is come back essentially normal with no explanation for his acute changes. We will await those final results and likely will need to move towards supportive treatment of his new abnormal normal. 8. Patient now on [address] hearing today. Patient may be ready to return home soon, with LP studies essentially not supportive of a clear cause of encephalopathy. Consider high dose steroids, IVIG, or Plasma exchange if autoimmune encephalitis considered. Level 2 to be completed with planning to file for guardianship. Letter of support for guardianship completed today. PDMP PDMP Reviewed: Not Reviewed Involuntary Hold Information 2 Hold Status: Legal Status: 90 Day Hold Date/Time Hold Expires: 08/19/2025 Attestations NPU 2 Medical Necessity Statement*: Inpatient hospitalization is medically necessary and the clinically appropriate intervention at this time. We will monitor medications and make changes as indicated. The patient's likely length of stay is 4-7 days. Coding Level of Care Code Acute Code for [facility] Fwd Diagnoses Encephalopathy acute G93.40 Bipolar disorder F31.9 Manic behavior F30.10 Alcohol use disorder F10.90 Lumbar stenosis with neurogenic claudication M48.062 Hx of Wernicke's encephalopathy Z86.39 Psychosis F29 Cannabis use disorder F12.90
[2025-05-26 13:52] VITALS: BP 116/77; PULSE 72; RESP 15; TEMP 36.8; O2SAT 99
[2025-05-26] MEDS: quetiapine XR (24HR) 50 mg Tablet 100 MG PO (17:07)
[2025-05-26] MEDS: quetiapine XR (24HR) 300 mg Tablet 600 MG PO (17:07)
[2025-05-26 19:55] VITALS: BP 111/71; PULSE 75; RESP 18; TEMP 37.2; O2SAT 97
[2025-05-27 06:00] VITALS: BP 102/69; PULSE 62; RESP 16; TEMP 36.9; O2SAT 99
[2025-05-27] MEDS: divalproex ER 500 mg Tablet (24H) 1000 MG PO (07:51)
[2025-05-27] MEDS: HYDROcodone-acetaminophen 5-325 mg Tablet 1 TAB PO ×2 (07:53→20:34)
[2025-05-27] MEDS: NADOLOL 40 MG 40 EACH PO (07:53)
[2025-05-27] MEDS: divalproex ER 250 mg Tablet (24H) 500 MG PO (07:53)
--- NOTE | 2025-05-27 12:08 | P.NPUPN_ITS ---
Subjective NPU 2 Subjective: 44-year-old male with bipolar disorder c urrently admitted on 90 day hold. The patient had slept well. He reported no side effects from his medications. He reported no abdominal discomfort. He had received some Benadryl for an apparent rash yesterday. He reports that he has continued pain in his heels and his sole of his feet describing electrical shooting pain particularly. The patient reported no struggles with concentration. He had endorsed a past history of significant alcohol use but reported no cravings for alcohol currently. Patient reported no side effects from his medications. He was pleasant and cooperative on the unit. Mental Status Exam 2 MSE Comments: This is a well-nourished well-developed white male in hospital scrubs with adequate grooming and fair eye contact with some tattoos on both arms. There was mild psychomotor slowing. There was no abnormal involuntary motor movements appreciated today with no shuffling gait. His gait still appeared antalgic. He was cooperative with exam in no acute distress today. Speech is decreased in rate with diminished volume but continued evidence of mild dysarthria. Mood described as okay His affect was restricted. Thought process was linear. Thought content: Patient denied suicidal or homicidal ideation. There were no delusions reported with no magical thinking appreciated. He did not appear to be responding to internal stimuli. Attention and concentration were limited and his recent and remote memory appeared impaired. He is alert and oriented to person, place and time. Insight was limited. His judgment is limited. Impulse control was better. Vitals/I&O/Wt Last Vital Signs Temp 98.4 F 05/27/25 06:00 Pulse 62 05/27/25 06:00 Resp 16 05/27/25 06:00 BP 102/69 05/27/25 06:00 Pulse Ox 99 05/27/25 06:00 O2 Del Method Room Air 05/27/25 06:00 Weight last 48 hrs Weight 81.817 kg Data NPU 05/12/25 15:48 05/12/25 15:48 A&P Assessment and plan 1. Encephalopathy acute: 2. Bipolar disorder: 3. Manic behavior: 4. Alcohol use disorder: 5. Lumbar stenosis with neurogenic claudication: 6. Hx of Wernicke's encephalopathy: 7. Psychosis: 8. Cannabis use disorder: Plan: This is a 44-year-old white male with a reported long history of bipolar disorder with recent discharge 2 weeks prior from NPU with concerns about encephalopathy although not clear about Warnicke type. 1. Continue Seroquel xr 700mg at 6PM. Continue abilify at 10mg daily. Continue depakote ER at 1500mg daily. Depakote level was 58.5 on last check on 05/02/25. Depakote level was 78.9 on 05/25/25. 2. Encourage individual, group and milieu therapy. 3. Continue every 15 minute checks for safety. 4. Encourage sober living treatment after discharge at the highest level of care to which she is willing to commit. 5. Patient needs MRI and LP to complete workup for psychosis and encephalopathy. Will confirm the particular labs to be ordered from LP. Patient continues to have a fluctuating course of consciousness and illness with periods of increased flight of ideas and increased psychomotor activity in unpredictable manner. Court hearing for 21-day hold earlier today and he was placed on a hold. Had MRI this morning 05/06/2025. Working with radiology and LP performed 05/09/2025. Awaiting remaining labs. 6. Ordered hospitalist consult to take a look at whether there are any other areas of investigation that the current things from the LP might suggest including take disease to her some other rare but possible condition. Will monitor findings and follow recommendations as indicated. 7. There are several studies that are send outs that are pending but otherwise everything is come back essentially normal with no explanation for his acute changes. We will await those final results and likely will need to move towards supportive treatment of his new abnormal normal. 8. Patient now on [address] hearing today. Patient may be ready to return home soon, with LP studies essentially not supportive of a clear cause of encephalopathy. Consider high dose steroids, IVIG, or Plasma exchange if autoimmune encephalitis considered. Level 2 to be completed with planning to file for guardianship. Letter of support for guardianship completed today. PDMP PDMP Reviewed: Not Reviewed Involuntary Hold Information 2 Hold Status: Legal Status: 90 Day Hold Date/Time Hold Expires: 08/19/2025 Attestations NPU 2 Medical Necessity Statement*: Inpatient hospitalization is medically necessary and the clinically appropriate intervention at this time. We will monitor medications and make changes as indicated. The patient's likely length of stay is 4-7 days. Coding Level of Care Code Acute Code for Chg Fwd Diagnoses Encephalopathy acute G93.40 Bipolar disorder F31.9 Manic behavior F30.10 Alcohol use disorder F10.90 Lumbar stenosis with neurogenic claudication M48.062 Hx of Wernicke's encephalopathy Z86.39 Psychosis F29 Cannabis use disorder F12.90
[2025-05-27 13:50] VITALS: BP 111/75; PULSE 73; RESP 16; TEMP 36.6; O2SAT 98
[2025-05-27] MEDS: quetiapine XR (24HR) 300 mg Tablet 600 MG PO (17:36)
[2025-05-27] MEDS: quetiapine XR (24HR) 50 mg Tablet 100 MG PO (17:37)
[2025-05-27 20:01] VITALS: BP 109/69; PULSE 76; RESP 16; TEMP 36.7; O2SAT 99
[2025-05-28 06:00] VITALS: BP 104/67; PULSE 68; RESP 16; TEMP 36.6; O2SAT 97
[2025-05-28] MEDS: HYDROcodone-acetaminophen 5-325 mg Tablet 1 TAB PO ×2 (08:07→20:20)
[2025-05-28] MEDS: NADOLOL 40 MG 40 EACH PO (08:07)
[2025-05-28] MEDS: divalproex ER 500 mg Tablet (24H) 1000 MG PO (08:07)
[2025-05-28] MEDS: divalproex ER 250 mg Tablet (24H) 500 MG PO (08:08)
[2025-05-28 14:00] VITALS: BP 113/74; PULSE 66; RESP 18; TEMP 36.8; O2SAT 95
--- NOTE | 2025-05-28 15:58 | W.PM.NPUPNS ---
Subjective NPU Subjective: 44-year-old male with bipolar disorder currently admitted on 90 day hold. Patient was cooperative and redirectable on the milieu. He had expressed desire to return home soon. The patient had an apparent date for his guardianship hearing set up for June 11, 2025 as the was pursuing guardianship. The patient had expressed hope that he would be able to manage his medications. He had appeared redirectable and compliant here on the milieu. He had been less intrusive and reported sleeping throughout the whole night. Mental Status Exam MSE Comments: This is a well-nourished well-developed white male in hospital scrubs with adequate grooming and fair eye contact with some tattoos on both arms. There was mild psychomotor slowing. There was no abnormal involuntary motor movements appreciated today with no shuffling gait. His gait was slow and steady. He was cooperative with exam in no acute distress today. Speech is decreased in rate with diminished volume but continued evidence of mild dysarthria. Mood described as okay His affect was restricted. Thought process was linear and logical. Thought content: Patient denied suicidal or homicidal ideation. There were no delusions reported with no magical thinking appreciated. He did not appear to be responding to internal stimuli. Attention and concentration were limited and his recent and remote memory appeared impaired. He is alert and oriented to person, place and time. Insight was limited. His judgment is limited. Impulse control was improved. Vitals/I&O/Wt Last Vital Signs Temp 98.2 F 05/28/25 14:00 Pulse 66 05/28/25 14:00 Resp 18 05/28/25 14:00 BP 113/74 05/28/25 14:00 Pulse Ox 95 05/28/25 14:00 O2 Del Method Room Air 05/28/25 06:00 Data NPU 05/12/25 15:48 05/12/25 15:48 A&P Assessment and plan 1. Encephalopathy acute: 2. Bipolar disorder: 3. Manic behavior: 4. Alcohol use disorder: 5. Lumbar stenosis with neurogenic claudication: 6. Hx of Wernicke's encephalopathy: 7. Psychosis: 8. Cannabis use disorder: Plan: This is a 44-year-old white male with a reported long history of bipolar disorder with recent discharge 2 weeks prior from NPU with concerns about encephalopathy although not clear about Warnicke type. 1. Continue Seroquel xr 700mg at 6PM. Continue abilify at 10mg daily. Continue depakote ER at 1500mg daily. Depakote level was 58.5 on last check on 05/02/25. Depakote level was 78.9 on 05/25/25. 2. Encourage individual, group and milieu therapy. 3. Continue every 15 minute checks for safety. 4. Encourage sober living treatment after discharge at the highest level of care to which she is willing to commit. 5. Patient needs MRI and LP to complete workup for psychosis and encephalopathy. Will confirm the particular labs to be ordered from LP. Patient continues to have a fluctuating course of consciousness and illness with periods of increased flight of ideas and increased psychomotor activity in unpredictable manner. Court hearing for 21-day hold earlier today and he was placed on a hold. Had MRI this morning 05/06/2025. Working with radiology and LP performed 05/09/2025. Awaiting remaining labs. 6. Ordered hospitalist consult to take a look at whether there are any other areas of investigation that the current things from the LP might suggest including take disease to her some other rare but possible condition. Will monitor findings and follow recommendations as indicated. 7. There are several studies that are send outs that are pending but otherwise everything is come back essentially normal with no explanation for his acute changes. We will await those final results and likely will need to move towards supportive treatment of his new abnormal normal. 8. Patient now on [address] hearing today. Patient may be ready to return home soon, with LP studies essentially not supportive of a clear cause of encephalopathy. Consider high dose steroids, IVIG, or Plasma exchange if autoimmune encephalitis considered. Level 2 to be completed with planning to file for guardianship. Letter of support for guardianship completed today. PDMP PDMP Reviewed: Not Reviewed Involuntary Hold Information Hold Status: Legal Status: 90 Day Hold Date/Time Hold Expires: 08/19/2025 Attestations NPU Medical Necessity Statement*: Inpatient hospitalization is medically necessary and the clinically appropriate intervention at this time. We will monitor medications and make changes as indicated. The patient's likely length of stay is 3-4 days. Coding Level of Care Code Acute Code for [facility] Fwd Diagnoses Encephalopathy acute G93.40 Bipolar disorder F31.9 Manic behavior F30.10 Alcohol use disorder F10.90 Lumbar stenosis with neurogenic claudication M48.062 Hx of Wernicke's encephalopathy Z86.39 Psychosis F29 Cannabis use disorder F12.90
[2025-05-28] MEDS: quetiapine XR (24HR) 300 mg Tablet 600 MG PO (17:20)
[2025-05-28] MEDS: quetiapine XR (24HR) 50 mg Tablet 100 MG PO (17:20)
[2025-05-28 19:32] VITALS: BP 125/85; PULSE 70; RESP 16; TEMP 36.5; O2SAT 97
[2025-05-29 06:00] VITALS: BP 107/67; PULSE 66; RESP 16; O2SAT 99
[2025-05-29] MEDS: divalproex ER 250 mg Tablet (24H) 500 MG PO (08:08)
[2025-05-29] MEDS: divalproex ER 500 mg Tablet (24H) 1000 MG PO (08:08)
[2025-05-29] MEDS: NADOLOL 40 MG 40 EACH PO (08:10)
[2025-05-29 13:56] VITALS: BP 121/76; PULSE 81; RESP 19; TEMP 36.4; O2SAT 100
[2025-05-29] MEDS: HYDROcodone-acetaminophen 5-325 mg Tablet 1 TAB PO (15:32)
--- NOTE | 2025-05-29 16:51 | P.NPUPN_ITS ---
Subjective NPU 2 Subjective: 44-year-old male with bipolar disorder c urrently admitted on 90 day hold. Patient continues to sleep well. There are no substantial changes appreciated. The patient had reported adequate energy and remained hopeful about being able to go home soon to see his daughter and . He had appeared redirectable on the milieu. He had appeared less intrusive. He had denied any thoughts of hurting himself or others and denied any sleep disturbance at this time. Mental Status Exam 2 MSE Comments: This is a well-nourished well-developed white male in hospital scrubs with adequate grooming and fair eye contact with some tattoos on both arms. There was mild psychomotor slowing. There was no abnormal involuntary motor movements appreciated today with no shuffling gait. His gait was slow and steady. He was cooperative with exam in no acute distress today. Speech is decreased in rate with diminished volume but continued evidence of mild dysarthria. Mood described as good. His affect was restricted. Thought process was linear and logical. Thought content: Patient denied suicidal or homicidal ideation. There were no delusions reported with no magical thinking appreciated. He did not appear to be responding to internal stimuli. Attention and concentration were limited and his recent and remote memory appeared impaired. He is alert and oriented to person, place and time. Insight was limited. His judgment is improving. Impulse control was improved. Vitals/I&O/Wt Last Vital Signs Temp 97.5 F L 05/29/25 13:56 Pulse 81 05/29/25 13:56 Resp 19 H 05/29/25 13:56 BP 121/76 05/29/25 13:56 Pulse Ox 100 05/29/25 13:56 O2 Del Method Room Air 05/29/25 13:56 Data NPU 05/12/25 15:48 05/12/25 15:48 A&P Assessment and plan 1. Encephalopathy acute: 2. Bipolar disorder: 3. Manic behavior: 4. Alcohol use disorder: 5. Lumbar stenosis with neurogenic claudication: 6. Hx of Wernicke's encephalopathy: 7. Psychosis: 8. Cannabis use disorder: Plan: This is a 44-year-old white male with a reported long history of bipolar disorder with recent discharge 2 weeks prior from NPU with concerns about encephalopathy although not clear about Warnicke type. 1. Continue Seroquel xr 700mg at 6PM. Continue abilify at 10mg daily. Continue depakote ER at 1500mg daily. Depakote level was 58.5 on last check on 05/02/25. Depakote level was 78.9 on 05/25/25. ADDED B6 50mg daily. 2. Encourage individual, group and milieu therapy. 3. Continue every 15 minute checks for safety. 4. Encourage sober living treatment after discharge at the highest level of care to which she is willing to commit. 5. Patient needs MRI and LP to complete workup for psychosis and encephalopathy. Will confirm the particular labs to be ordered from LP. Patient continues to have a fluctuating course of consciousness and illness with periods of increased flight of ideas and increased psychomotor activity in unpredictable manner. Court hearing for 21-day hold earlier today and he was placed on a hold. Had MRI this morning 05/06/2025. Working with radiology and LP performed 05/09/2025. Awaiting remaining labs. 6. Ordered hospitalist consult to take a look at whether there are any other areas of investigation that the current things from the LP might suggest including take disease to her some other rare but possible condition. Will monitor findings and follow recommendations as indicated. 7. There are several studies that are send outs that are pending but otherwise everything is come back essentially normal with no explanation for his acute changes. We will await those final results and likely will need to move towards supportive treatment of his new abnormal normal. 8. Patient now on [address] hearing today. Patient may be ready to return home soon, with LP studies essentially not supportive of a clear cause of encephalopathy. Consider high dose steroids, IVIG, or Plasma exchange if autoimmune encephalitis considered. Level 2 to be completed with planning to file for guardianship. Letter of support for guardianship completed today. PDMP PDMP Reviewed: Not Reviewed Involuntary Hold Information 2 Hold Status: Legal Status: 90 Day Hold Date/Time Hold Expires: 08/19/2025 Attestations NPU 2 Medical Necessity Statement*: Inpatient hospitalization is medically necessary and the clinically appropriate intervention at this time. We will monitor medications and make changes as indicated. The patient's likely length of stay is 2-3 days. Coding Level of Care Code Acute Code for [facility] Fwd Diagnoses Encephalopathy acute G93.40 Bipolar disorder F31.9 Manic behavior F30.10 Alcohol use disorder F10.90 Lumbar stenosis with neurogenic claudication M48.062 Hx of Wernicke's encephalopathy Z86.39 Psychosis F29 Cannabis use disorder F12.90
[2025-05-29] MEDS: quetiapine XR (24HR) 300 mg Tablet 600 MG PO (17:10)
[2025-05-29] MEDS: quetiapine XR (24HR) 50 mg Tablet 100 MG PO (17:10)
[2025-05-29 20:52] VITALS: BP 115/81; PULSE 84; RESP 18; TEMP 36.4; O2SAT 100
[2025-05-30 06:00] VITALS: BP 129/83; PULSE 67; RESP 16; O2SAT 97
--- NOTE | 2025-05-30 06:45 | PC.NURSE ---
vital signs patient refused to allow his temp to be taken
[2025-05-30] MEDS: divalproex ER 250 mg Tablet (24H) 500 MG PO (07:56)
[2025-05-30] MEDS: divalproex ER 500 mg Tablet (24H) 1000 MG PO (07:56)
[2025-05-30] MEDS: NADOLOL 40 MG 40 EACH PO (08:03)
[2025-05-30] MEDS: HYDROcodone-acetaminophen 5-325 mg Tablet 1 TAB PO ×2 (08:37→20:36)
[2025-05-30 14:00] VITALS: BP 122/84; PULSE 74; RESP 16; TEMP 36.8; O2SAT 98
--- NOTE | 2025-05-30 16:58 | W.PM.NPUPNS ---
Subjective NPU Subjective: 44-year-old male with bipolar disorder currently admitted on 90 day hold. Patient reported no side effects from his medication regimen. He had reported improved energy. He continued to report adequate sleep. Patient reported feeling optimistic about being able to return home soon. He reported his mood is good. He reported having no thoughts of hurting himself or others. Mental Status Exam MSE Comments: This is a well-nourished well-developed white male in hospital scrubs with adequate grooming and fair eye contact with some tattoos on both arms. There was mild psychomotor slowing. There was no abnormal involuntary motor movements appreciated today with no shuffling gait. His gait was slow and steady. He was cooperative with exam in no acute distress today. Speech is decreased in rate with diminished volume but continued evidence of mild dysarthria. Mood described as allright His affect was restricted. Thought process was linear and logical. Thought content: Patient denied suicidal or homicidal ideation. There were no delusions reported with no magical thinking appreciated. He did not appear to be responding to internal stimuli. Attention and concentration were limited and his recent and remote memory appeared impaired. He is alert and oriented to person, place and time. Insight was limited. His judgment is improving. Impulse control was improved. The patient scored 23 out of 30 on the Mini-Mental status exam today which is indicative of some cognitive impairment. Vitals/I&O/Wt Last Vital Signs Temp 98.2 F 05/30/25 14:00 Pulse 74 05/30/25 14:00 Resp 16 05/30/25 14:00 BP 122/84 05/30/25 14:00 Pulse Ox 98 05/30/25 14:00 O2 Del Method Room Air 05/30/25 14:00 Data NPU 05/12/25 15:48 05/12/25 15:48 A&P Assessment and plan 1. Encephalopathy acute: 2. Bipolar disorder: 3. Manic behavior: 4. Alcohol use disorder: 5. Lumbar stenosis with neurogenic claudication: 6. Hx of Wernicke's encephalopathy: 7. Psychosis: 8. Cannabis use disorder: Plan: This is a 44-year-old white male with a reported long history of bipolar disorder with recent discharge 2 weeks prior from NPU with concerns about encephalopathy although not clear about Warnicke type. 1. Continue Seroquel xr 700mg at 6PM. Continue abilify at 10mg daily. Continue depakote ER at 1500mg daily. Depakote level was 58.5 on last check on 05/02/25. Depakote level was 78.9 on 05/25/25. ADDED B6 50mg daily. 2. Encourage individual, group and milieu therapy. 3. Continue every 15 minute checks for safety. 4. Encourage sober living treatment after discharge at the highest level of care to which she is willing to commit. 5. Patient needs MRI and LP to complete workup for psychosis and encephalopathy. Will confirm the particular labs to be ordered from LP. Patient continues to have a fluctuating course of consciousness and illness with periods of increased flight of ideas and increased psychomotor activity in unpredictable manner. Court hearing for 21-day hold earlier today and he was placed on a hold. Had MRI this morning 05/06/2025. Working with radiology and LP performed 05/09/2025. Awaiting remaining labs. 6. Ordered hospitalist consult to take a look at whether there are any other areas of investigation that the current things from the LP might suggest including take disease to her some other rare but possible condition. Will monitor findings and follow recommendations as indicated. 7. There are several studies that are send outs that are pending but otherwise everything is come back essentially normal with no explanation for his acute changes. We will await those final results and likely will need to move towards supportive treatment of his new abnormal normal. 8. Patient now on [address] hearing today. Patient may be ready to return home soon, with LP studies essentially not supportive of a clear cause of encephalopathy. Consider high dose steroids, IVIG, or Plasma exchange if autoimmune encephalitis considered. Level 2 to be completed with planning to file for guardianship. Letter of support for guardianship completed. Patient to have repeat THOMAS and speech evaluation as patient may need additional services at home. PDMP PDMP Reviewed: Not Reviewed Involuntary Hold Information Hold Status: Legal Status: 90 Day Hold Date/Time Hold Expires: 08/19/2025 Attestations NPU Medical Necessity Statement*: Inpatient hospitalization is medically necessary and the clinically appropriate intervention at this time. We will monitor medications and make changes as indicated. The patient's likely length of stay is 1-2 days. Coding Level of Care Code Acute Code for [facility] Fwd Diagnoses Encephalopathy acute G93.40 Bipolar disorder F31.9 Manic behavior F30.10 Alcohol use disorder F10.90 Lumbar stenosis with neurogenic claudication M48.062 Hx of Wernicke's encephalopathy Z86.39 Psychosis F29 Cannabis use disorder F12.90
[2025-05-30] MEDS: quetiapine XR (24HR) 300 mg Tablet 600 MG PO (17:25)
[2025-05-30] MEDS: quetiapine XR (24HR) 50 mg Tablet 100 MG PO (17:25)
[2025-05-30 19:58] VITALS: BP 128/80; PULSE 70; RESP 17; TEMP 36.4; O2SAT 96
[2025-05-31 06:00] VITALS: BP 111/64; PULSE 71; RESP 16; TEMP 36.5; O2SAT 97
[2025-05-31] MEDS: divalproex ER 500 mg Tablet (24H) 1000 MG PO (08:19)
[2025-05-31] MEDS: divalproex ER 250 mg Tablet (24H) 500 MG PO (08:19)
[2025-05-31] MEDS: NADOLOL 40 MG 40 EACH PO (08:20)
[2025-05-31] MEDS: HYDROcodone-acetaminophen 5-325 mg Tablet 1 TAB PO ×3 (08:34→20:22)
--- NOTE | 2025-05-31 09:12 | NUR.SHIFT ---
Pt states that he slept good last night. He rates his anxiety a 4/10 and depression a 0/10. No reports of SI/HI or hallucinations. He rates his low back pain a 6/10 and requested [place] with his morning meds. He is calm and cooperative on assessment. His speech and thoughts are more clear. There is no rapid speech.
[2025-05-31 14:00] VITALS: RESP 18
--- NOTE | 2025-05-31 14:58 | P.NPUPN_ITS ---
Subjective NPU 2 Subjective: Patient presented today reporting that things are going okay. He is excited about discharge tomorrow. We discussed that we feel he has made some progress over the last few days and are very hopeful that this continues after discharge. He does understand and his is pursuing guardianship. He denies any side effects with medications. Mental Status Exam 2 MSE Comments: This is a well-nourished well-developed white male in hospital scrubs with adequate grooming and fair eye contact with some tattoos on both arms. There was mild psychomotor slowing. There was no abnormal involuntary motor movements appreciated today with no shuffling gait. His gait was slow and steady. He was cooperative with exam in no acute distress today. Speech is decreased in rate with diminished volume but continued evidence of mild dysarthria. Mood described as pretty good His affect was restricted. Thought process was linear and logical. Thought content: Patient denied suicidal or homicidal ideation. There were no delusions reported with no magical thinking appreciated. He did not appear to be responding to internal stimuli. Attention and concentration were limited and his recent and remote memory appeared impaired. He is alert and oriented to person, place and time. Insight was limited. His judgment is improving. Impulse control was improved. The patient scored 23 out of 30 on the Mini-Mental status exam today which is indicative of some cognitive impairment. Vitals/I&O/Wt Last Vital Signs Temp 97.7 F 05/31/25 06:00 Pulse 71 05/31/25 06:00 Resp 16 05/31/25 06:00 BP 111/64 05/31/25 06:00 Pulse Ox 97 05/31/25 06:00 O2 Del Method Room Air 05/31/25 06:00 Data NPU 05/12/25 15:48 05/12/25 15:48 A&P Assessment and plan 1. Encephalopathy acute: 2. Bipolar disorder: 3. Manic behavior: 4. Alcohol use disorder: 5. Lumbar stenosis with neurogenic claudication: 6. Hx of Wernicke's encephalopathy: 7. Psychosis: 8. Cannabis use disorder: Plan: This is a 44-year-old white male with a reported long history of bipolar disorder with recent discharge 2 weeks prior from NPU with concerns about encephalopathy although not clear about Warnicke type. 1. Continue Seroquel xr 700mg at 6PM. Continue abilify at 10mg daily. Continue depakote ER at 1500mg daily. Depakote level was 58.5 on last check on 05/02/25. Depakote level was 78.9 on 05/25/25. ADDED B6 50mg daily. 2. Encourage individual, group and milieu therapy. 3. Continue every 15 minute checks for safety. 4. Encourage sober living treatment after discharge at the highest level of care to which she is willing to commit. 5. Patient needs MRI and LP to complete workup for psychosis and encephalopathy. Will confirm the particular labs to be ordered from LP. Patient continues to have a fluctuating course of consciousness and illness with periods of increased flight of ideas and increased psychomotor activity in unpredictable manner. Court hearing for 21-day hold earlier today and he was placed on a hold. Had MRI this morning 05/06/2025. Working with radiology and LP performed 05/09/2025. Awaiting remaining labs. 6. Ordered hospitalist consult to take a look at whether there are any other areas of investigation that the current things from the LP might suggest including take disease to her some other rare but possible condition. Will monitor findings and follow recommendations as indicated. 7. There are several studies that are send outs that are pending but otherwise everything is come back essentially normal with no explanation for his acute changes. We will await those final results and likely will need to move towards supportive treatment of his new abnormal normal. 8. Patient now on [address] hearing today. Patient may be ready to return home soon, with LP studies essentially not supportive of a clear cause of encephalopathy. Consider high dose steroids, IVIG, or Plasma exchange if autoimmune encephalitis considered. Level 2 to be completed with planning to file for guardianship. Letter of support for guardianship completed. Patient to have repeat THOMAS and speech evaluation as patient may need additional services at home. PDMP PDMP Reviewed: Last Reviewed 06/01/25 12:22 EDT by Arthur Mcghee MD Involuntary Hold Information 2 Hold Status: Legal Status: 90 Day Hold Date/Time Hold Expires: 08/19/2025 Attestations NPU 2 Medical Necessity Statement*: Inpatient hospitalization is medically necessary and the clinically appropriate intervention at this time. We will monitor medications and make changes as indicated. The patient's likely length of stay is 1-2 days. Coding Level of Care Code Acute Code for [facility] Fwd Diagnoses Encephalopathy acute G93.40 Bipolar disorder F31.9 Manic behavior F30.10 Alcohol use disorder F10.90 Lumbar stenosis with neurogenic claudication M48.062 Hx of Wernicke's encephalopathy Z86.39 Psychosis F29 Cannabis use disorder F12.90
[2025-05-31] MEDS: quetiapine XR (24HR) 300 mg Tablet 600 MG PO (17:18)
[2025-05-31] MEDS: quetiapine XR (24HR) 50 mg Tablet 100 MG PO (17:19)
[2025-05-31 20:18] VITALS: BP 112/77; PULSE 91; RESP 18; TEMP 36.4; O2SAT 96
[2025-06-01 06:00] VITALS: BP 112/68; PULSE 74; RESP 17; TEMP 36.6; O2SAT 98
[2025-06-01] MEDS: NADOLOL 40 MG 40 EACH PO (08:19)
[2025-06-01] MEDS: divalproex ER 250 mg Tablet (24H) 500 MG PO (08:20)
[2025-06-01] MEDS: divalproex ER 500 mg Tablet (24H) 1000 MG PO (08:20)
[2025-06-01] MEDS: HYDROcodone-acetaminophen 5-325 mg Tablet 1 TAB PO (08:30)
[2025-06-01] MEDS: artificial tears Op Soln 15 mL Btl 1 DROP EYE-BOTH (08:58)
--- NOTE | 2025-06-01 09:47 | NUR.SHIFT ---
Pt states he slept good last night. He rates his anxiety a 3/10 and depression a 0/10. No reports of SI/HI or hallucinations. He rates his low back pain a 6/10 and requested to have his [place] with his morning meds.
[2025-06-01 13:05] VITALS: BP 112/68; PULSE 74; RESP 17; TEMP 36.6; O2SAT 98
== END 2025-06-01 13:25 | disposition home or self-care (01) | DRG 876 ==
LOC: ER 12:55 → NP 13:34
PROVIDERS: Family Medicine; Student in an Organized Health Care Education/Training Program; Admitting Provider Psychiatry & Neurology Psychiatry; Emergency Provider Physician Assistant; Visit Provider Psychiatry & Neurology Psychiatry
DX: F23 Brief psychotic disorder (principal); R45.851 Suicidal ideations; G93.40 Encephalopathy, unspecified; R45.850 Homicidal ideations; Z91.81 History of falling; F31.9 Bipolar disorder, unspecified; M48.062 Spinal stenosis, lumbar region with neurogenic claudication; F10.90 Alcohol use, unspecified, uncomplicated; F12.90 Cannabis use, unspecified, uncomplicated; R21 Rash and other nonspecific skin eruption
CPT/HCPCS: 36415; 62328; 70544; 70553; 80053; 80164; 80306; 80307; 80503; 82040; 82042; 82140; 82390; 82784; 82945; 83873; 83916; 84145; 84157; 84443; 85025; 85651; 86140; 86160; 86162; 86235; 86255; 86376; 86592; 86617; 86618; 86653; 86666; 86757; 87070; 87075; 87205; 87327; 87806; 89050; 90935; 92610; 96372; 97150; 97165; 97167; 99285; J1200; J2060; J3486; J9999; Q0162; Q0163; Q0169

== ENCOUNTER → 2025-06-06 17:35 | Outpatient (BNVA) | payer BC, MEDICAID, SELFPAY | PROVIDERS: Visit Provider Specialist | DX: G93.40 Encephalopathy, unspecified (principal); R29.90 Unspecified symptoms and signs involving the nervous system | CPT/HCPCS: 36415; 80164; 82542; 83520 ==

== ENCOUNTER 2025-09-03 08:23 | Day surgery (SDC) | payer BC, MEDICAID, SELFPAY ==
[2025-09-03 08:49] VITALS: BP 120/78; PULSE 61; RESP 18; TEMP 36.5; O2SAT 98; BMI 25.1
--- NOTE | 2025-09-03 09:41 | ANES.PREANE2 ---
Pre-Anesthetic Assessment Height/Weight: Height 1.88 m Weight 88.904 kg Temp Pulse Resp BP Pulse Ox O2 Del Method 97.7 F 61 18 120/78 98 Room Air 09/03/25 08:49 09/03/25 08:49 09/03/25 08:49 09/03/25 08:49 09/03/25 08:49 09/03/25 08:49 Operation Date: 09/03/25 10:00 Proposed Procedures p EGD EGD with Biopsy [id number] G0105 K21.9 K92.1(Not Applicable) - Kervin Harris MD s Colonoscopy(Not Applicable) - Kervin Harris MD Familial anesthetic complications: none Was Beta Gloria taken within 24 hours: Yes Last intake: Intake Last Liquid Date 09/02/25 Last Liquid Time 21:00 Last Solid Date 09/01/25 Last Solid Time 21:30 Social Tobacco smokes occasional pack(s) per day chews tobacco Exam alert, oriented x 3, clear to auscultation bilaterally and regular rate & rhythm Airway Submandibular: within normal limits Cervical ROM: within normal limits Mallampati: Class II Dentition: chipped Comments: Comments: poor dentition. broken teeth, none loose History/ROS No significant history except as noted Pulmonary Sleep Apnea no cpap CV/HEM Hypertension and Myocardial Infarction (mild one three years ago) reports kidney failure, not on dialysis Hepatic Cirrhosis hepatitis c was treated GI GI BLEED X 8 YEARS Metabolic None reported Musc/skel Osteoarthritis/DJD Neuropsych Anxiety and Depression C/O HEAT STROKE Anesthetic Plan ASA status: 3 Anesthesia: Anesthesia Evaluation and MAC Risk of > 500 ml blood loss (7ml/kg in children): No Medications/Allergies Home Medications ?Medication ?Instructions ?Recorded ?Confirmed ?Last Taken ?Type nadolol 40 mg tablet 40 mg PO DAILY 30 days #30 tabs 06/01/25 08/28/25 08/28/25 Rx pyridoxine (vitamin B6) 50 mg 50 mg PO DAILY 30 days #30 tabs 06/01/25 08/28/25 09/02/25 Rx tablet aripiprazole 10 mg tablet 10 mg PO .morning 30 days #30 tabs 07/26/25 08/28/25 09/02/25 Rx benztropine 1 mg tablet 1 mg PO BID 30 days #60 tabs 10/08/28/25 09/02/25 Rx chlorthalidone 25 mg tablet 25 mg PO .morning 30 days #30 tabs 07/26/25 08/28/25 09/02/25 Rx clonazepam 2 mg tablet (Klonopin) 2 mg PO .8 pm #30 tabs 07/26/25 08/28/25 09/02/25 Rx divalproex 500 mg tablet,extended 1,500 mg (3 x 500 mg) PO 0800 30 07/26/25 08/28/25 09/03/25 06:10 Rx release 24 hr days #90 tabs hydroxyzine pamoate 50 mg capsule 50 mg PO BID PRN anxiety #60 caps 07/26/25 08/28/25 09/01/25 Rx olanzapine 5 mg disintegrating 5 mg PO DAILY PRN 07/26/25 08/28/25 08/30/25 Rx tablet Agitation/Psychosis 30 days #30 tabs pantoprazole 40 mg tablet,delayed 40 mg PO DAILY 30 days #30 tabs 07/26/25 08/28/25 09/02/25 Rx release quetiapine 300 mg tablet,extended 600 mg (2 x 300 mg) PO 1800 30 07/26/25 08/28/25 09/02/25 Rx release 24 hr days #60 tabs thiamine mononitrate (vit B1) 100 200 mg (2 x 100 mg) PO DAILY 30 07/26/25 08/28/25 09/02/25 Rx mg tablet (Vitamin B-1 days #60 tabs (mononitrate)) hydrocodone 5 mg-acetaminophen 325 1 tab PO TID PRN Pain 08/02/25 08/28/25 09/02/25 History mg tablet hydrocortisone 1 % topical cream 1 applic topical TID PRN skin 08/02/25 08/28/25 08/28/25 Rx (Preparation H Hydrocortisone) irritation #28.4 grams Allergies Allergy/AdvReac Type Severity Reaction Status Date / Time haloperidol (From Haldol) Allergy ADR-Seizure Verified 08/23/25 08:39 risperidone (From Risperdal) Allergy ALGY-Anaphy Verified 08/23/25 08:39 laxis Current Medications Generic Name Dose Route Start Last Admin Trade Name Freq PRN Reason Stop Dose Admin Sodium Chloride 1,000 mls @ 15 mls/hr 09/03/25 08:30 09/03/25 08:59 Sodium Chloride 0.9% IV 09/04/25 08:29 15 mls/hr .Q24H PRN Administration COLONOSCOPY FLUIDS PFSH Anesthesia Medical History History of methamphetamine abuse Alcohol use disorder, severe, dependence Last use 02/14/25 Nicotine dependence, cigarettes, uncomplicated Nicotine dependence, chewing tobacco, uncomplicated Bipolar I, most recent episode mixed, severe with psychotic behavior Essential hypertension Lumbar stenosis with neurogenic claudication Encephalopathy acute Psychiatric care Family History Mother Brain cancer Bipolar disorder Hypertension Alzheimer's dementia Father Pancreatic cancer Social History Smoking and tobacco/nicotine status: current every day tobacco/nicotine user (chewing tobacco) cigarettes and smokeless tobacco Smokeless tobacco user: chewing tobacco Alcohol intake: former Substance/Drug Use: former Adopted: No Caregiver/support person: Yes ( takes care of Kareem 18/04) Lives independently: No Household members: spouse Housing: House Marital status: Number of children: 4 Number of grandchildren: 8 Highest education level completed: 11th Grade service: No Current occupational status: unemployed Current occupation: Has applied for disability Current occupational exposures/hazards: No Do you think of yourself as: Straight/Heterosexual Current gender identity: Male
--- NOTE | 2025-09-03 09:58 | W.PM.OPSUD ---
Surgery/Procedure H&P Update DATE OF PROCEDURE: September 03, 2025 DATE H&P PERFORMED: 08/23/25 H&P UPDATE INFORMATION: I have reviewed H&P completed within last 30 days, I have examined patient prior to procedure, No changes to prior documentation and Risks and benefits of the procedure reviewed PLANNED PROCEDURE: Operation Date: 09/03/25 10:00 Proposed Procedures p EGD EGD with Biopsy [id number] G0105 K21.9 K92.1(Not Applicable) - Kervin Harris MD s Colonoscopy(Not Applicable) - Kervin Harris MD
[2025-09-03 10:23] VITALS: BP 104/58; PULSE 58; RESP 16; TEMP 36.3; O2SAT 99
[2025-09-03 10:50] VITALS: BP 101/78; PULSE 65; RESP 18; O2SAT 98
--- NOTE | 2025-09-03 11:08 | ANE.PACU2 ---
Inpatient post-anesthesia follow up: Airway intact: Yes Vital signs: Temperature 97.4 F Pulse Rate 65 Respiratory Rate 18 Blood Pressure 101/78 Pulse Oximetry 98 Oxygen Delivery Me thod Room Air Oxygen Flow Rate Fraction of Inspir ed Oxygen Hydration adequate: Yes Nausea and vomiting: No Pain level: 1 Mental status: Baseline
== END 2025-09-03 11:08 | disposition home or self-care (01) ==
PROVIDERS: PCP Family Medicine; Visit Provider Student in an Organized Health Care Education/Training Program
PROC: 0DJ08ZZ Inspection of Upper Intestinal Tract, Via Natural or Artificial Opening Endoscopic (ICD-10-PCS; principal; 2025-09-03 10:00)
PROC: 0DJD8ZZ Inspection of Lower Intestinal Tract, Via Natural or Artificial Opening Endoscopic (ICD-10-PCS; CPT 45378; 2025-09-03 10:00)
DX: K92.1 Melena (principal); K21.9 Gastro-esophageal reflux disease without esophagitis; K57.30 Diverticulosis of large intestine without perforation or abscess without bleeding; K29.50 Unspecified chronic gastritis without bleeding; D18.01 Hemangioma of skin and subcutaneous tissue; F17.220 Nicotine dependence, chewing tobacco, uncomplicated; I10 Essential (primary) hypertension; I25.2 Old myocardial infarction; G47.30 Sleep apnea, unspecified; Z86.19 Personal history of other infectious and parasitic diseases
CPT/HCPCS: 43239; 45378; 88305; 88342; J2704; J7030